=== PATIENT | female | born 1935 | race Hispanic/Latino ===

== ENCOUNTER 2019-04-18 07:22 | Day surgery (SDC) | payer OTHER ==
[~2019-04-18] VITALS: Ht 152.4 cm; Wt 63.5 kg
[~2019-04-18 07:22] MED LIST: ASPI-555 PO; CLOP75TA32 PO; LOSA1TAB42 PO; NAPR375T PO; PRAV40TA3 PO; RANI150C4 PO; SODIUM CHLORIDE 0.9% 1000ML 1,000 ML IV ONE; [UNRECOGNIZED DRUG - REMARK] PO
[2019-04-18 08:58] VITALS: BP 132/62
[2019-04-18] MEDS ORDERED: GABA-529 PO (09:15)
[2019-04-18] MEDS ORDERED: POTA10CA44 PO (09:15)
[2019-04-18] MEDS ORDERED: FURO20TA4 PO (09:15)
[2019-04-18] MEDS ORDERED: DULO30CA52 PO (09:15)
[2019-04-18] MEDS ORDERED: RANO500T3 PO (09:15)
[2019-04-18] MEDS ORDERED: PANT40TA25 PO (09:15)
[2019-04-18] MEDS ORDERED: DILT240C46 PO (09:15)
[2019-04-18] MEDS ORDERED: ALEN70TA10 PO (09:15)
[2019-04-18] MEDS ORDERED: ISOS60TA4 PO (09:15)
[2019-04-18] MEDS ORDERED: PROPOFOL 10 MG/ML 20ML VIAL IV ONE (10:30)
[2019-04-18 10:41] VITALS: BP 118/54
[2019-04-18 10:48] VITALS: BP 111/58
[2019-04-18 10:52] VITALS: BP 116/61
== END 2019-04-18 11:10 | disposition home or self-care (01) ==
LOC: DAH 07:22 → ENDO 07:22
PROVIDERS: ATTEND Internal Medicine
DX: K29.50 Unspecified chronic gastritis without bleeding (principal); K44.9 Diaphragmatic hernia without obstruction or gangrene; K31.89 Other diseases of stomach and duodenum; E78.5 Hyperlipidemia, unspecified; F41.9 Anxiety disorder, unspecified; F32.9 Major depressive disorder, single episode, unspecified; I25.10 Atherosclerotic heart disease of native coronary artery without angina pectoris; I50.41 Acute combined systolic (congestive) and diastolic (congestive) heart failure; M19.90 Unspecified osteoarthritis, unspecified site; Z79.899 Other long term (current) drug therapy; Z90.49 Acquired absence of other specified parts of digestive tract; Z90.710 Acquired absence of both cervix and uterus; Z98.890 Other specified postprocedural states; Z82.49 Family history of ischemic heart disease and other diseases of the circulatory system
CPT/HCPCS: 43239; 88305; A4606; J2704; J7030

== ENCOUNTER → 2022-01-30 | Outpatient (CLI) | payer OTHER ==
[~2022-01-30] MED LIST changes: +ALEN70TA80 PO; -ASPI-555 PO; +DILT240C46 PO; +DULO30CA52 PO; +FURO20TA4 PO; +GABA-529 PO; +ISOS60TA77 PO; -LOSA1TAB42 PO; -NAPR375T PO; +PANT40TA54 PO; +POTA10CA44 PO; -RANI150C4 PO; +RANO500T3 PO; -SODIUM CHLORIDE 0.9% 1000ML 1,000 ML IV ONE; -[UNRECOGNIZED DRUG - REMARK] PO
== END | disposition home or self-care (01) ==
LOC: RAH 13:09
PROVIDERS: ATTEND Physical Medicine & Rehabilitation
DX: M48.061 Spinal stenosis, lumbar region without neurogenic claudication (principal); M47.816 Spondylosis without myelopathy or radiculopathy, lumbar region; M51.36 Other intervertebral disc degeneration, lumbar region; M48.56XA Collapsed vertebra, not elsewhere classified, lumbar region, initial encounter for fracture; R29.890 Loss of height; M48.07 Spinal stenosis, lumbosacral region; M16.11 Unilateral primary osteoarthritis, right hip; M47.817 Spondylosis without myelopathy or radiculopathy, lumbosacral region
CPT/HCPCS: 72148; 73502

== ENCOUNTER → 2022-03-10 | Outpatient (CLI) | payer OTHER ==
[~2022-03-10] VITALS: Ht 152.4 cm; Wt 56.7 kg
[~2022-03-10] MED LIST changes: +ACYC400T20 PO; +APIX2.5T PO; +CEFAZOLIN SODIUM 1 GM VIAL IVP ONE; +DEXA4TAB PO; +FOLI1 PO; +LENA10CA PO; +PANT40GR PO; +PREG50CA63 PO; +RANO500T2 PO; +ROSU10TA28 PO; +SERT-440 PO
[2022-03-10 10:58] LABS: BASOPHILS % (AUTO) 0.3 % (0.0-5.0); EOSINOPHILS % (AUTO) 0.7 % (0.0-8.0); HEMATOCRIT 34.3 % (36-48); LYMPHOCYTES % (AUTO) 10.8 % (21.0-51.0); MEAN CORPUSCULAR HEMOGLOBIN 33.7 pg (27.0-33.0); MEAN CORPUSCULAR HGB CONC 32.9 g/dL (32.0-36.0); MEAN CORPUSCULAR VOLUME 102.4 fL (79-99); NEUTROPHILS % (AUTO) 57.2 % (40.0-77.0); PLATELET COUNT (AUTO) 68 K/uL (130-400); RED BLOOD CELL COUNT(AUTO) 3.35 MIL/uL (4.00-5.50); RED CELL DISTRIBUTION WIDTH 14.6 % (11.0-15.5)
[2022-03-10 11:06] LABS: CREATININE 0.6 mg/dL (0.5-1.5)
[2022-03-10 11:09] LABS: POTASSIUM 2.9 mmol/L (3.5-5.1)
[2022-03-10 11:42] LABS: PLATELET MORPHOLOGY COMMENT MARKED DECREASE
[2022-03-11 08:22] VITALS: BP 146/76
== END | disposition home or self-care (01) ==
LOC: DAH 10:00 → EDSTATUS 03-19 08:30
PROVIDERS: ATTEND Neurological Surgery
DX: Z01.818 Encounter for other preprocedural examination (principal); S32.010A Wedge compression fracture of first lumbar vertebra, initial encounter for closed fracture; M48.061 Spinal stenosis, lumbar region without neurogenic claudication; Z20.822 Contact with and (suspected) exposure to COVID-19; X58.XXXA Exposure to other specified factors, initial encounter; Y93.89 Activity, other specified; Y92.89 Other specified places as the place of occurrence of the external cause; Y99.8 Other external cause status
CPT/HCPCS: 80048; 85025; 36415; 87635; 71045; C9803; A6260; 84132; 85049

== ENCOUNTER → 2022-03-12 | Outpatient (CLI) | payer OTHER ==
[~2022-03-12] MED LIST changes: -ACYC400T20 PO; -APIX2.5T PO; -CEFAZOLIN SODIUM 1 GM VIAL IVP ONE; -DEXA4TAB PO; -FOLI1 PO; -LENA10CA PO; -PANT40GR PO; -PREG50CA63 PO; -RANO500T2 PO; -ROSU10TA28 PO; -SERT-440 PO
[2022-03-12 12:24] LABS: CREATININE 0.6 mg/dL (0.5-1.5); POTASSIUM 3.2 mmol/L (3.5-5.1)
== END | disposition home or self-care (01) ==
LOC: LAB 08:50
PROVIDERS: ATTEND Nurse Practitioner Acute Care
DX: E87.6 Hypokalemia (principal)
CPT/HCPCS: 36415; 80048

== ENCOUNTER 2024-07-30 09:36 | Observation (INO) | payer OTHER ==
[~2024-07-30] VITALS: Ht 152.4 cm; Wt 60.8 kg
[~2024-07-30 09:36] MED LIST changes: +ACYC400T20 PO; -ALEN70TA80 PO; +AMLO5TAB4 PO; +APIX2.5T PO; +BUPR1PAT22 TD; +CALC1TAB2 PO; -CLOP75TA32 PO; -DILT240C46 PO; -DULO30CA52 PO; +FAMO20TA8 PO; +FOLI1 PO; -FURO20TA4 PO; -GABA-529 PO; -ISOS60TA77 PO; +PANT40GR PO; -PANT40TA54 PO; -POTA10CA44 PO; -PRAV40TA3 PO; +RANO500T2 PO; -RANO500T3 PO; +ROSU10TA72 PO
--- NOTE | 2024-07-30 10:24 | ERN ---
General Chief Complaint: Back Injury Stated Complaint: BACK PAIN Time Seen by MD: 09:46 History of Present Illness Initial Comments 89-year-old female who presents for upper back pain beginning yesterday. Patient has a history of chronic lower back pain, she has a buprenorphine patch she wears for this chronic back pain. She has a history of multiple myeloma in remission. She recently went with her family to [place] and return yesterday. This is when her symptoms started. She describes upper back pain on the bilateral paraspinal muscles in the thoracic region in the upper back. There is no skin changes. She denies any radiating to the pain. It is musculoskeletal increases with movements and palpation. She denies any neurologic deficits distally. She has been taking [id number]-[id number] Tylenol Arthritis as well as her buprenorphine. She denies any systemic symptoms such as chest pains vomiting shortness of breath sore throat or other. Medical history: Cardiac stents, multiple myeloma in remission, high cholesterol. Patient sees Dr. Harrington for pain control. Allergies: Coded Allergies: No Known Drug Allergies (Verified Allergy, Unknown, 11/27/14) Home Meds Reported Medications Pantoprazole Sodium (Pantoprazole Sodium) 40 Mg Tablet.dr, 1 TAB PO DAILY for 30 Days, #30 TAB 0 Refills 07/30/24 Dexamethasone (Dexamethasone) 4 Mg Tablet, 10 TAB PO QWEEK for 30 Days, #40 TAB 0 Refills Take 2 tablets 3 times a day for 2 days, then 1 tablet 3 times a day for 2 days, then 1 tablet twice daily for 2 days, then 1 07/30/24 Pregabalin (Pregabalin) 50 Mg Capsule, 1 CAP PO BID MDD 2 Capsule(s) for 30 Days, #60 CAP 0 Refills 07/30/24 Furosemide (Furosemide) 20 Mg Tablet, 1 TAB PO DAILY for 30 Days, #30 TAB 0 Refills 07/30/24 Isosorbide Mononitrate (Isosorbide Mononitrate ER) 60 Mg Tab.er.24h, 1 TAB PO DAILY for 30 Days, #30 TAB 0 Refills 07/30/24 Amlodipine Besylate (Amlodipine Besylate) 2.5 Mg Tablet, 1 TAB PO DAILY for 30 Days, #30 TAB 0 Refills 07/30/24 Apixaban (Eliquis) 2.5 Mg Tablet, 2.5 MG PO BID, TAB 07/30/24 Potassium Chloride (Potassium Chloride) 20 Meq Tab.er.prt, 1 TAB PO DAILY for 30 Days, #30 TAB 0 Refills 07/30/24 Sertraline HCl (Sertraline HCl) 100 Mg Tablet, 1 TAB PO DAILY for 30 Days, #30 TAB 0 Refills 07/30/24 Lenalidomide (Revlimid) 10 Mg Capsule, 1 CAP PO AD 07/30/24 Rosuvastatin Calcium (Rosuvastatin Calcium) 10 Mg Tablet, 10 MG PO DAILYDINNER, TAB 07/15/23 Folic Acid (Folvite) 1 Mg Tab, 1 MG PO DAILY, TAB 03/17/22 Acyclovir (Acyclovir) 400 Mg Tablet, 400 MG PO BID, TAB 03/17/22 Ranolazine (RANEXA) 500 Mg Tab.er.12h, 500 MG PO BID, TAB 03/17/22 Discontinued Reported Medications Buprenorphine (Buprenorphine) 5 Mcg/Hour Patch.tdwk, 1 EACH TD QWEEK 07/15/23 Calcium Carbonate/Vitamin D3 (Caltrate 600 + D Tablet) 600 Mg Calcium-20 Mcg (800 Unit) Tablet, 1 EACH PO DAILY, TAB 07/15/23 Apixaban (Eliquis) 2.5 Mg Tablet, 2.5 MG PO BID, TAB 03/17/22 Pantoprazole Sodium (Pantoprazole Sodium) 40 Mg Granpkt.dr, 40 MG PO DAILY, PACK 03/17/22 Discontinued Scripts Famotidine (Famotidine) 20 Mg Tablet, 20 MG PO DAILY, #15 TAB 0 Refills Prov:DYLLAN NICHOLSON [facility] 07/21/23 Amlodipine Besylate (Norvasc 5Mg Tab) 5 Mg Tablet, 5 MG PO DAILY, #30 TAB Prov:ANMOLDYLLAN ABRAHAM [employer] 07/21/23 Past Medical History Past Medical History: Heart Disease Medical History Other: CHRONIC BACK PAIN Past Surgical History: Hysterectomy, Cholecystectomy, Other Surgical History Other: HEART STENTS Social History Social History: Negative ROS Dictation CONSTITUTIONAL: No chills, no fever, no weakness, no diaphoresis, no malaise. HEAD/FACE: No signs of trauma. EENT: No eye pain, no blurred vision, no tearing, no double vision, no ear pain, no ear discharge, no nose pain, no nasal congestion, no throat pain, no throat swelling, no mouth pain. RESPIRATORY: No cough, no orthopnea, no SOB, no stridor, no wheezing. CARDIOVASCULAR: No chest pain, no edema, no palpitations, no syncope. GASTROINTESTINAL/ABDOMINAL: No abdominal pain, no constipation, no diarrhea, no nausea, no vomiting. GENITOURINARY: No abnormal discharge, no dysuria, no frequent urination, no hematuria. No complaints of pain in the genitals. MUSCULOSKELETAL: Upper back pain INTEGUMENTARY: No change in color, no change in hair/nails, no dryness, no lesion, no lumps, no rash. NEUROLOGICAL/PSYCH: No anxiety, not depressed, no emotional problem, no headache, no numbness, no pre-existing deficit, no history of seizures, no tremors, no weakness. HEMATOLOGIC/LYMPHATIC: Not anemic, no history of blood clots, no apparent bleeding, no bruising, glands not swollen. All Systems Negative, Except as Noted. Physical Exam Physical Exam Dictation VITAL SIGNS: Reviewed. GENERAL APPEARANCE: Alert, moderate distress due to pain HEAD AND FACE: Non-traumatic. EYES: PERRL, pink conjunctivas, eyelid no trauma, anterior chamber clear. EARS: Pinnas intact and no signs of trauma or erythema. Ear canals clear and no discharge. TMs no erythema. NOSE: No discharge, no bleeding. OROPHARYNX: Mouth normal, teeth no caries, tongue pink. Pharynx clear, no erythema. Tonsils no exudates, no abscesses noted. Mucous membrane moist. NECK: Supple, non-tender, no thyromegaly, no masses, no JVD, no bruits. BREAST: Deferred. CHEST: No tenderness, no crepitus, no paradoxical movement, no retractions. LUNGS: Clear, well-ventilated, symmetric, no rales, no wheezing, no rhonchi, no stridor, good breath sounds bilaterally. HEART: Regular rate, regular rhythm, no murmur, no gallops. VASCULAR: No peripheral edema. ABDOMEN: Soft, positive bowel sounds, nondistended, no guarding, nontender, no rebound, no masses no hepatomegaly, no splenomegaly, no Cope's sign, no hernias. RECTAL: Deferred. GENITAL: Deferred. NEUROLOGICAL: Normal speech, gross motor function intact, gross sensory function intact. MUSCULOSKELETAL: Neck nontender, full range of motion, back nontender, full range of motion. EXTREMITIES: Nontender, full range of motion. SKIN: Color pink, dry, no turgor, no rash, no lacerations, no abrasions, no contusions. LYMPHATICS: Deferred. Results Laboratory and Microbiology Lab and Micro Result Laboratory Tests Test 07/30/24 10:23 White Blood Count 12.3 K/uL (4.8-10.8) H Red Blood Count 3.91 MIL/uL (4.00-5.50) L Hemoglobin 11.5 g/dL (12.0-16.0) L Hematocrit 35.8 % (36-48) L Mean Corpuscular Volume 91.6 fL (79-99) Mean Corpuscular Hemoglobin 29.4 pg (27.0-33.0) Mean Corpuscular Hemoglobin Concent 32.1 g/dL (32.0-36.0) Red Cell Distribution Width 17.6 % (11.0-15.5) H Platelet Count 58 K/uL (130-400) L Mean Platelet Volume 12.9 fL (7.5-10.5) H Immature Granulocyte % (Auto) 6.6 % (0-1) H Neutrophils (%) (Auto) 78.0 % (40.0-77.0) H Lymphocytes (%) (Auto) 6.2 % (21.0-51.0) L Monocytes (%) (Auto) 8.6 % (3.0-13.0) Eosinophils (%) (Auto) 0.2 % (0.0-8.0) Basophils (%) (Auto) 0.4 % (0.0-5.0) Neutrophils # (Auto) 9.6 K/uL (1.8-7.7) H Lymphocytes # (Auto) 0.8 K/uL (1.0-4.8) L Monocytes # (Auto) 1.1 K/uL (0.1-1.0) H Eosinophils # (Auto) 0.02 K/uL (0.00-0.70) Basophils # (Auto) 0.05 K/uL (0.00-0.20) Absolute Immature Granulocyte (auto 0.81 K/uL (0-1) Nucleated Red Blood Cells 0.2 % (0.0-0.19) H White Cell Morphology Comment See comments Platelet Morphology Comment DECREASED Sodium Level 138 mmol/L (136-145) Potassium Level 3.3 mmol/L (3.5-5.1) L Chloride Level 104 mmol/L (101-111) Carbon Dioxide Level 26 mmol/L (21-32) Blood Urea Nitrogen 10 mg/dL (7-18) Creatinine 0.8 mg/dL (0.5-1.0) Glomerular Filtration Rate Calc 70 mL/min (>90) Random Glucose 184 mg/dL (70-105) H Total Calcium 8.5 mg/dL (8.5-10.1) Magnesium Level 1.60 mg/dL (1.80-2.40) L Total Creatine Kinase 20 U/L (21-232) L Troponin I High Sensitivity 5.4 ng/L (4-50) MDM CC: Upper back pain Historian: Patient Comorbidities: Multiple myeloma, hypertension, advanced age Differential diagnosis: Musculoskeletal pain, degenerative joint disease disc disease, aortic aneurysm or dissection, or lung disorder, rib fracture, rib abnormality, other. Labs ( independently ordered and interpreted by me): Leukocytosis 12.3 1000 left shift no bands. Normocytic anemia hemoglobin 11.5. Platelets 58, thrombocytopenia. Chemistry panel is unremarkable. Magnesium 1.6. Troponin stable. External chart review: I reviewed the patient's labs from 2021 and 2022, specifically regarding the platelets. It appears the patient always has thrombocytopenia, it has been lower in the past. This is likely due to the multiple myeloma. She appears to be at her baseline. CT scan of the chest and abdomen without contrast ( independently interpreted by me): No obvious fractures. She has significant degenerative disc disease mostly in the lumbar spine. I do not see any rib fractures. No lung abnormalities. Significant atherosclerosis of the aorta but no signs of aneurysm. No surgical pathology or free air in the abdomen. Patient received IV Toradol and IV Dilaudid in the ER for pain control. Re-evaluation: Pain improved, but patient still uncomfortable. Discussed pain control and admission with family, they agree. Consultation: hospitalist for admission CT CHEST ABDOMEN W/O CONTRAST HISTORY: upper back pain TECHNIQUE: CT CHEST ABDOMEN W/O CONTRAST. Coronal and sagittal reformats were obtained. CT was performed with one or more of the following dose reduction techniques: Automated exposure control, adjustment of the mA and/or kV according to the patient's size, or use of the iterative reconstruction technique. FINDINGS: The noncontrast nature this study limits evaluation of the mediastinal structures. Atelectasis versus early infectious in the bilateral lower lobe. Correlate clinically. Follow-up CT chest when acute symptoms resolve is recommended to assess resolution. There is mild cardiomegaly. There is atherosclerotic changes of the aorta and coronary arteries. Right chest port is seen place. There is hepatic steatosis. Cholecystectomy changes are seen. There is fatty atrophy of the pancreas. No hydronephrosis is seen. No bowel obstruction is noted. Fluid-filled loops of small bowel and colon which may represent enterocolitis the proper clinical setting. Diffuse osteopenia is seen degrading evaluation of the study. There is moderate severe compression deformity of L2 and L3, age indeterminate. Mild compression deformity of L1 L4 and T12. IMPRESSION: Diffuse osteopenia is seen degrading evaluation of the study. There is moderate to severe compression deformity of L2 and L3, age indeterminate. Mild compression deformity of L1, L4 and T12. Additional findings as described above. ED Course Orders Procedure Category Date Status Time Cardiac Panel LAB 07/30/24 Complete 10:15 Cbc With Differential LAB 07/30/24 Complete 10:15 Basic Metabolic Panel LAB 07/30/24 Complete 10:15 Magnesium LAB 07/30/24 Complete 10:15 Ct Chest Abdomen W/O CT 07/30/24 Resulted Contrast 10:15 Hydromorphone 1 Mg PHA 07/30/24 Complete Inj (Dilaudid 1mg Inj 10:30 Ketorolac PHA 07/30/24 Complete Tromethamine 15mg/Ml 10:30 Current Medications Medications (Trade) Dose Ordered Sig/Katerina Route PRN Reason Start Time Stop Time Status Last Admin Dose Admin Hydromorphone HCl (DiLAUDid 1MG INJ) 1 mg ONCE ONCE IVP 07/30/24 10:30 07/30/24 10:31 DC 07/30/24 10:31 Ketorolac Tromethamine (toRADol) 15 mg ONCE ONCE IV 07/30/24 10:30 07/30/24 10:31 DC 07/30/24 10:30 Vital Signs Date Time Temp Pulse Resp B/P (MAP) Pulse Ox O2 Delivery O2 Flow Rate FiO2 07/30/24 12:00 98.1 76 20 127/73 97 Room Air* 0 21 07/30/24 10:38 77 20 118/73 97 Room Air* 0 21 07/30/24 09:39 98.4 56 18 106/71 96 Room Air DX & DISP Disposition: Inpatient Departure Impression: Primary Impression: Acute upper back pain Condition: Stable Referrals: ISAAK THOMAS MD (PCP) KUSHAL GARCIA DO Jul 30, 2024 10:24
[2024-07-30] MEDS: ketOROlac 15MG/ML VIAL (15MG/ML) IV ONE (10:30)
[2024-07-30 10:31] LABS: BASOPHILS # (AUTO) 0.05 K/uL (0.00-0.20); BASOPHILS % (AUTO) 0.4 % (0.0-5.0); EOSINOPHILS # (AUTO) 0.02 K/uL (0.00-0.70); EOSINOPHILS % (AUTO) 0.2 % (0.0-8.0); HEMATOCRIT 35.8 % (36-48); IMMATURE GRANULOCYTE ABSOLUTE 0.81 K/uL (0-1); LYMPHOCYTES # (AUTO) 0.8 K/uL (1.0-4.8); LYMPHOCYTES % (AUTO) 6.2 % (21.0-51.0); MEAN CORPUSCULAR HEMOGLOBIN 29.4 pg (27.0-33.0); MEAN CORPUSCULAR HGB CONC 32.1 g/dL (32.0-36.0); MEAN CORPUSCULAR VOLUME 91.6 fL (79-99); MONOCYTES # (AUTO) 1.1 K/uL (0.1-1.0); MONOCYTES % (AUTO) 8.6 % (3.0-13.0); NEUTROPHILS # (AUTO) 9.6 K/uL (1.8-7.7); NUCLEATED RED BLOOD CELLS 0.2 % (0.0-0.19); PLATELET COUNT (AUTO) 58 K/uL (130-400); RED BLOOD CELL COUNT(AUTO) 3.91 MIL/uL (4.00-5.50); RED CELL DISTRIBUTION WIDTH 17.6 % (11.0-15.5); WHITE BLOOD COUNT (AUTO) 12.3 K/uL (4.8-10.8)
[2024-07-30] MEDS: hydroMORPHone 1 MG INJ IVP ONE (10:31)
[2024-07-30 10:44] LABS: CREATININE 0.8 mg/dL (0.5-1.0); POTASSIUM 3.3 mmol/L (3.5-5.1)
[2024-07-30 10:51] LABS: MAGNESIUM 1.6 mg/dL (1.80-2.40)
[2024-07-30 11:32] LABS: PLATELET MORPHOLOGY COMMENT DECREASED
--- NOTE | 2024-07-30 11:42 | HMCIMG ---
CT CHEST ABDOMEN W/O CONTRAST HISTORY: upper back pain TECHNIQUE: CT CHEST ABDOMEN W/O CONTRAST. Coronal and sagittal reformats were obtained. CT was performed with one or more of the following dose reduction techniques: Automated exposure control, adjustment of the mA and/or kV according to the patient's size, or use of the iterative reconstruction technique. FINDINGS: The noncontrast nature this study limits evaluation of the mediastinal structures. Atelectasis versus early infectious in the bilateral lower lobe. Correlate clinically. Follow-up CT chest when acute symptoms resolve is recommended to assess resolution. There is mild cardiomegaly. There is atherosclerotic changes of the aorta and coronary arteries. Right chest port is seen place. There is hepatic steatosis. Cholecystectomy changes are seen. There is fatty atrophy of the pancreas. No hydronephrosis is seen. No bowel obstruction is noted. Fluid-filled loops of small bowel and colon which may represent enterocolitis the proper clinical setting. Diffuse osteopenia is seen degrading evaluation of the study. There is moderate severe compression deformity of L2 and L3, age indeterminate. Mild compression deformity of L1 L4 and T12. IMPRESSION: Diffuse osteopenia is seen degrading evaluation of the study. There is moderate to severe compression deformity of L2 and L3, age indeterminate. Mild compression deformity of L1, L4 and T12. Additional findings as described above.
[2024-07-30] MEDS ORDERED: traMADol HCL 50 MG TABLET PO PRN (12:30)
[2024-07-30] MEDS ORDERED: acetaMINOPHEN 650 MG SUPPOSITORY RC PRN (12:30)
--- NOTE | 2024-07-30 12:46 | HP ---
[facility] HISTORY & PHYSICAL Date Patient Seen: Jul 30, 2024 Time of Visit: 12:46 Supervising Physician: [ ] Primary Care Physician: Dr. Davis Outpatient Specialists: [ ] Inpatient Consults: [ ] PROBLEM LIST: New onset thoracic back pain Chronic lumbar pain Osteopenia Thrombocytopenia Immunocompromised status Multiple myeloma Hyperlipidemia Chronic anemia HPI: Patient is an 89-year-old female with a past medical history significant for multiple myeloma, immunocompromised status, thrombocytopenia, and chronic lumbar back pain, who presents today with new onset thoracic back pain. Patient's daughter was present at the time of evaluation in the emergency room, states that they just returned yesterday from a trip to [place] with the patient was on a flight for 8 hours, states that the patient is usually in better in the wheelchair and does not do much ambulation however she exerted herself significantly during the trip. Patient had a CT scan performed of the chest and abdomen which was positive for severe compression deformities of the L2 and L3 likely that the source of her chronic lower back pain as well as mild compression deformities of the L1, L4, and T12 vertebrae. Upon evaluation the patient was able to describe the location of her pain which is indicative more of supraspinal muscle pain. Patient was given 50 mg of tramadol in the emergency room which alleviated her pain completely. We will keep the patient overnight for observation, with a trial of muscle relaxers at a low dose, consultation to physical therapy to work with her tomorrow, no indication for any more scans at this time. Possible discharge tomorrow following evaluation. PAST MEDICAL HX: see above PAST SURGICAL HX: noncontributory SOCIAL HISTORY: No tobacco, ETOH, or illicit drug use Coded Allergies: No Known Drug Allergies (Verified Allergy, Unknown, 11/27/14) REVIEW OF SYSTEMS: 12 point ROS reviewed with patient. Pertinent positives mentioned above. Oth erwise negative. PHYSICAL EXAM: GENERAL: alert, weak, awake oriented x 3 HEENT: EOMI, Sclera non icteric, moist mucosa NECK: Supple, no JVD, trachea midline LUNGS: Clear breath sounds bilaterally. No wheezes HEART: Regular rate and rhythm. Normal S1 and S2, without murmurs ABD: Abdomen soft, nontender. Bowel sounds present EXT: No clubbing cyanosis or edema NEURO: Alert and oriented to person, follows commands Vital Signs (last 8hr) Date Time Temp Pulse Resp B/P (MAP) Pulse Ox O2 Delivery O2 Flow Rate FiO2 07/30/24 10:38 77 20 118/73 97 Room Air* 0 21 07/30/24 09:39 98.4 56 18 106/71 96 Room Air LABS: Hematology Labs: Test 07/30/24 10:23 Range/Units White Blood Count 12.3 H 4.8-10.8 K/uL Red Blood Count 3.91 L 4.00-5.50 MIL/uL Hemoglobin 11.5 L 12.0-16.0 g/dL Hematocrit 35.8 L 36-48 % Mean Corpuscular Volume 91.6 79-99 fL Mean Corpuscular Hemoglobin 29.4 27.0-33.0 pg Mean Corpuscular Hemoglobin Concent 32.1 32.0-36.0 g/dL Red Cell Distribution Width 17.6 H 11.0-15.5 % Platelet Count 58 L 130-400 K/uL Mean Platelet Volume 12.9 H 7.5-10.5 fL Immature Granulocyte % (Auto) 6.6 H 0-1 % Neutrophils (%) (Auto) 78.0 H 40.0-77.0 % Lymphocytes (%) (Auto) 6.2 L 21.0-51.0 % Monocytes (%) (Auto) 8.6 3.0-13.0 % Eosinophils (%) (Auto) 0.2 0.0-8.0 % Basophils (%) (Auto) 0.4 0.0-5.0 % Neutrophils # (Auto) 9.6 H 1.8-7.7 K/uL Lymphocytes # (Auto) 0.8 L 1.0-4.8 K/uL Monocytes # (Auto) 1.1 H 0.1-1.0 K/uL Eosinophils # (Auto) 0.02 0.00-0.70 K/uL Basophils # (Auto) 0.05 0.00-0.20 K/uL Absolute Immature Granulocyte (auto 0.81 0-1 K/uL Nucleated Red Blood Cells 0.2 H 0.0-0.19 % White Cell Morphology Comment See comments Platelet Morphology Comment DECREASED Chemistry Labs: Test 07/30/24 10:23 Range/Units Sodium Level 138 136-145 mmol/L Potassium Level 3.3 L 3.5-5.1 mmol/L Chloride Level 104 101-111 mmol/L Carbon Dioxide Level 26 21-32 mmol/L Blood Urea Nitrogen 10 7-18 mg/dL Creatinine 0.8 0.5-1.0 mg/dL Glomerular Filtration Rate Calc 70 >90 mL/min Random Glucose 184 H 70-105 mg/dL Total Calcium 8.5 8.5-10.1 mg/dL Magnesium Level 1.60 L 1.80-2.40 mg/dL Total Creatine Kinase 20 L 21-232 U/L Troponin I High Sensitivity 5.4 4-50 ng/L DIAGNOSTICS / RADIOLOGY RESULTS: [ ] PLAN NEURO: Minimize central acting medications as possible. Maintain fall precautions, adequate lighting during the day PULMONARY: Supplemental 02 as needed. Maintain aspiration precautions at all times CARDIOVASCULAR: Follow hemodynamics. Vital signs per facility protocol GI & NUTRITION: Continue with nutritional support. Continue stool softeners and laxatives as needed. KIDNEYS & ELECTROLYTES: Strict monitoring of intake, output and overall fluid balance. Avoid nephrotoxic medications to the extent possible. Medications to be dosed according to renal function. Monitor electrolytes and replace as needed ENDOCRINE: Maintain blood glucose between 100-180 at all times. Hypoglycemia protocol in place INFECTIOUS DISEASE: Trend temperature, WBC and procalcitonin level Follow cultures, deescalate antibiotics as soon as possible. Panculture if new onset fever ONCOLOGY/HEMATOLOGY/COAGULATION: Monitor for s/s of bleeding Monitor hemoglobin, coagulation studies as needed SKIN: Pressure ulcer prevention per facility protocol Specialty mattress ORTHO/REHAB: Continue PT/OT Prophylaxis: Continue GI and DVT prophylaxis Code Status: Full Resuscitation Disposition: TBD Other: Total patient care time exceeds 35 minutes excluding all procedures. SCOTT HALL Jul 30, 2024 12:46
[2024-07-30] MEDS: cefTRIAXone 1G VIAL IVP SCH (12:52)
[2024-07-30 15:40] LABS: APPEARANCE,URINE CLOUDY (CLEAR); BILIRUBIN,URINE NEGATIVE (NEGATIVE); COLOR,URINE YELLOW (YELLOW); GLUCOSE, URINE (UA) 300 mg/dL (NEGATIVE); KETONES,URINE 5 mg/dL (NEGATIVE); LEUKOCYTE ESTERASE ,URINE 500 Leu/uL (NEGATIVE); NITRATE,URINE NEGATIVE (NEGATIVE); OCCULT BLOOD,URINE LARGE (NEGATIVE); PH,URINE 5.5 (5.0-8.0); PROTEIN,URINE 50 mg/dL (NEGATIVE); UROBILINOGEN,URINE 0.2 mg/dL (0.2-1.0)
[2024-07-30 15:49] LABS: ADD UA MICROSCOPIC YES
[2024-07-30 15:54] LABS: BACTERIA,URINE RARE /HPF (None Seen); MUCUS,URINE FEW LPF (None Seen); SQUAMOUS EPITHELIAL CELL,UR FEW /HPF (0-2); WBC CLUMP FEW /HPF (0-1); WBC,URINE TNTC /HPF (0-1)
[2024-07-30] MEDS: hydroMORPHone 1 MG INJ IVP PRN (16:22)
[2024-07-30] MEDS: INSULIN humuLIN R 100 UNIT/ML 3ML SQ SCH (16:30)
[2024-07-30] MEDS ORDERED: PoTASSium chloRIDE 20MEQ/100ML 100 ML IV PRN (19:30)
[2024-07-30] MEDS ORDERED: PoTASSium chl 10% ELIXIR 20MEQ 20 MEQ/15 ML UDCUP PO PRN (19:30)
[2024-07-30] MEDS: BACLOFEN 10 MG TABLET PO SCH (19:55)
[2024-07-30] MEDS: BACLOFEN 10 MG TABLET ONE (20:02)
--- NOTE | 2024-07-30 20:04 | NUR ---
RBS 200 mg/dL Patient given 2 units of humulin R subcutaneous to right arm as per insulin sliding scale.
[2024-07-30 22:30] VITALS: BP 156/73; PULSE 70; RESP 17; TEMP 98.6
[2024-07-30] MEDS: MAGNESIUM 2GM PREMIX 50ML 50 ML IV PRN (22:43)
[2024-07-30] MEDS: PoTASSium chloRIDE 20MEQ ER 20 MEQ ERTAB PO PRN (22:44)
[2024-07-30 22:49] VITALS: O2SAT 95
[2024-07-30] MEDS ORDERED: PREG50CA64 PO (23:13)
[2024-07-30] MEDS ORDERED: DEXA4TAB PO (23:13)
[2024-07-30] MEDS ORDERED: POTA-202 PO (23:13)
[2024-07-30] MEDS ORDERED: AMLO2.5T4 PO (23:13)
[2024-07-30] MEDS ORDERED: ISOS60TA77 PO (23:13)
[2024-07-30] MEDS ORDERED: FURO20TA4 PO (23:13)
[2024-07-30] MEDS ORDERED: APIX2.5T PO (23:13)
[2024-07-30] MEDS ORDERED: SERT-440 PO (23:13)
[2024-07-30] MEDS ORDERED: LENA10CA PO (23:13)
[2024-07-30] MEDS ORDERED: PANT40TA54 PO (23:14)
[2024-07-31] VITALS (11 sets, daily range): BP systolic 116–194; BP diastolic 54–108; PULSE 59–105; RESP 16–22; TEMP 97.5–98.2; O2SAT 94–97
[2024-07-31 05:52] LABS: BASOPHILS # (AUTO) 0.03 K/uL (0.00-0.20); BASOPHILS % (AUTO) 0.4 % (0.0-5.0); HEMATOCRIT 30.1 % (36-48); IMMATURE GRANULOCYTE ABSOLUTE 0.63 K/uL (0-1); LYMPHOCYTES # (AUTO) 0.7 K/uL (1.0-4.8); LYMPHOCYTES % (AUTO) 9.4 % (21.0-51.0); MEAN CORPUSCULAR HEMOGLOBIN 29.6 pg (27.0-33.0); MEAN CORPUSCULAR HGB CONC 32.9 g/dL (32.0-36.0); MEAN CORPUSCULAR VOLUME 89.9 fL (79-99); MONOCYTES # (AUTO) 1.1 K/uL (0.1-1.0); MONOCYTES % (AUTO) 15.6 % (3.0-13.0); NEUTROPHILS # (AUTO) 4.7 K/uL (1.8-7.7); NEUTROPHILS % (AUTO) 65.8 % (40.0-77.0); PLATELET COUNT (AUTO) 45 K/uL (130-400); RED BLOOD CELL COUNT(AUTO) 3.35 MIL/uL (4.00-5.50); RED CELL DISTRIBUTION WIDTH 16.9 % (11.0-15.5); WHITE BLOOD COUNT (AUTO) 7.1 K/uL (4.8-10.8)
[2024-07-31 06:21] LABS: CREATININE 0.5 mg/dL (0.5-1.0); MAGNESIUM 2.2 mg/dL (1.80-2.40); PHOSPHORUS 2.8 mg/dL (2.5-4.9); POTASSIUM 4.2 mmol/L (3.5-5.1); THYROID STIMULATING HORMONE 0.54 uIU/mL (0.36-3.74)
[2024-07-31 06:28] LABS: B-TYPE NATRIURETIC PEPTIDE 118 pg/mL (0-100)
[2024-07-31] MEDS: SODIUM CHLORIDE 3% FOR INHALATION 4 ML/AMP VIAL.NEB IH ONE ×4 (06:56→14:21)
[2024-07-31] MEDS: acetaMINOPHEN 325 MG TAB PO PRN (08:51)
[2024-07-31] MEDS: AZITHROMYCIN 500MG+NS 250ML IV SCH (08:51)
[2024-07-31] MEDS: ENOXAPARIN SODIUM 40 MG/0.4 ML SYRINGE SQ SCH (09:00)
--- NOTE | 2024-07-31 09:38 | HMCIMG ---
CHEST 1VW REASON: pneumonia COMPARISON: 07/30/2024 FINDINGS: Single view of the chest was obtained. Lungs are clear. Heart size is normal. There is no pulmonary vascular congestion. Mediastinum and bony thorax appear unremarkable. There is a right-sided chest port in place. IMPRESSION: 1. No acute process seen in the chest.
--- NOTE | 2024-07-31 11:08 | EKG ---
[facility] Test Date: 2024-07-31 Test Time: 11:05:38 Pat Name: MARYANA OTTO Department: [facility] Room: 317 1 Gender: F Proctologist: brenda : 1935 Requested By: SCOTT HALL Order Number: [id number] Reading MD: Cabrera Maloney Measurements Intervals [place] Rate: 79 P: 24 MT: 172 QRS: 1 QRSD: 80 T: 16 QT: 410 QTc: 470 Interpretive Statements Normal sinus rhythm Compared to ECG 07/15/2023 04:52:56 Ventricular premature complex(es) no longer present Intraventricular conduction delay no longer present Myocardial infarct finding no longer present T-wave abnormality no longer present Possible ischemia no longer present Electronically Signed On 08-01-2024 15:14:49 REGIONAL ADMINISTRATIVE ASSISTANT by Cabrera Maloney Please click the below link to view image of tracing.
[2024-07-31] MEDS: NITROGLYCERIN 0.4 MG SL TAB SL PRN (11:20)
--- NOTE | 2024-07-31 11:30 | NUR ---
Spoke to Criss, patient nurse, who told PT hold off on PT eval secondary to patient in severe pain. PT team to follow.
--- NOTE | 2024-07-31 11:35 | NUR ---
DCP: HOME Sw met with pt's son Uriah Soliman [phone]. Pt was in [place] last week and return c/o severe back pain. Son reports that pt lives at home with her (Maria M) who assists pt has needed with ADLS. Daughter Kirsten Baeza [phone] assists pt with bathing dressing grooming and as needed with transportation and home management. Pt has a w/c and shower chair and no HH or HD services. PcP is Bernard Davis and uses [facility] for rx. Son states pt will return home and dc and denied dc needs for pt Addendum: 07/31/24 at 1140 by SHALA CHINCHILLA Amended: Links added.
[2024-07-31] MEDS: CEFTRIAXONE 2GM VIAL IVP SCH (12:47)
--- NOTE | 2024-07-31 12:50 | PN ---
[facility] PROGRESS NOTE Date Patient Seen: Jul 31, 2024 Time of Visit: 12:50 Supervising Physician: Dr. Marin Primary Care Physician: Dr. Davis Outpatient Specialists: [ ] Inpatient Consults: Dr. Winchester (oncology) PROBLEM LIST: New onset thoracic back pain Chronic lumbar pain Acute complicated cystitis Osteopenia Thrombocytopenia Immunocompromised status Multiple myeloma Hyperlipidemia Chronic anemia Plan Pending oncology consultation Continue with pain management on schedule Continue Rocephin Continue baclofen Pending thoracic CT INTERVAL HISTORY: Patient was evaluated at bedside during an episode of severe chest pain, 06/15 as patient described. An EKG was performed and patient was slightly elevated heart rate however sinus rhythm. Nitroglycerin was given as well as 0.5 Dilaud id. Once pain resolved patient was revisited, when asked if the pain she was experiencing seemed like it was coming from the center of her chest or her back she stated it was the back. This is consistent with her original complaint of thoracic back pain. Nursing staff was advised to continue with scheduled pain management, her oncologist has been consulted at this time for possible metastases or plasmacytoma. We are also ordering a CT thoracic spine at this time. Patient continues on Rocephin at this time. Plan was to start the patient on adjusted dose Neurontin however her home prescription for Lyrica has been restarted. Holding anticoagulants due to thrombocytopenia. Pending recommendations from Oncology. REVIEW OF SYSTEMS: 12 point ROS reviewed with patient. Pertinent positives mentioned above. Otherwise negative. PHYSICAL EXAM: GENERAL: alert, weak, awake oriented x 3 HEENT: EOMI, Sclera non icteric, moist mucosa NECK: Supple, no JVD, trachea midline LUNGS: Clear breath sounds bilaterally. No wheezes HEART: Regular rate and rhythm. Normal S1 and S2, without murmurs ABD: Abdomen soft, nontender. Bowel sounds present EXT: No clubbing cyanosis or edema NEURO: Alert and oriented to person, follows commands Vital Signs (last 8hr) Date Time Temp Pulse Resp B/P (MAP) Pulse Ox O2 Delivery O2 Flow Rate FiO2 07/31/24 11:33 84 129/80 07/31/24 11:00 98.1 105 22 194/108 94 Room Air 07/31/24 08:00 98.1 88 18 144/74 94 Room Air LABS: Hematology Labs: Test 07/31/24 05:12 07/30/24 10:23 Range/Units White Blood Count 7.1 # 4.8-10.8 K/uL Red Blood Count 3.35 L 4.00-5.50 MIL/uL Hemoglobin 9.9 L 12.0-16.0 g/dL Hematocrit 30.1 L 36-48 % Mean Corpuscular Volume 89.9 79-99 fL Mean Corpuscular Hemoglobin 29.6 27.0-33.0 pg Mean Corpuscular Hemoglobin Concent 32.9 32.0-36.0 g/dL Red Cell Distribution Width 16.9 H 11.0-15.5 % Platelet Count 45 L 130-400 K/uL Mean Platelet Volume 13.2 H 7.5-10.5 fL Immature Granulocyte % (Auto) 8.8 H 0-1 % Neutrophils (%) (Auto) 65.8 40.0-77.0 % Lymphocytes (%) (Auto) 9.4 L 21.0-51.0 % Monocytes (%) (Auto) 15.6 H 3.0-13.0 % Eosinophils (%) (Auto) 0.0 0.0-8.0 % Basophils (%) (Auto) 0.4 0.0-5.0 % Neutrophils # (Auto) 4.7 1.8-7.7 K/uL Lymphocytes # (Auto) 0.7 L 1.0-4.8 K/uL Monocytes # (Auto) 1.1 H 0.1-1.0 K/uL Eosinophils # (Auto) 0.00 0.00-0.70 K/uL Basophils # (Auto) 0.03 0.00-0.20 K/uL Absolute Immature Granulocyte (auto 0.63 0-1 K/uL Nucleated Red Blood Cells 0.0 0.0-0.19 % White Cell Morphology Comment See comments Platelet Morphology Comment DECREASED Chemistry Labs: Test 07/31/24 11:11 07/31/24 05:12 07/30/24 10:23 Range/Units Whole Blood Glucose 144 H 70-110 MG/DL Sodium Level 145 136-145 mmol/L Potassium Level 4.2 3.5-5.1 mmol/L Chloride Level 111 101-111 mmol/L Carbon Dioxide Level 24 21-32 mmol/L Blood Urea Nitrogen 13 7-18 mg/dL Creatinine 0.5 0.5-1.0 mg/dL Glomerular Filtration Rate Calc 90 >90 mL/min Random Glucose 152 H 70-105 mg/dL Total Calcium 8.0 L 8.5-10.1 mg/dL Phosphorus Level 2.8 2.5-4.9 mg/dL Magnesium Level 2.20 1.80-2.40 mg/dL B-Type Natriuretic Peptide 118 H 0-100 pg/mL Thyroid Stimulating Hormone (TSH) 0.54 0.36-3.74 uIU/mL Total Creatine Kinase 20 L 21-232 U/L Troponin I High Sensitivity 5.4 4-50 ng/L DIAGNOSTICS / RADIOLOGY RESULTS: [ ] PLAN NEURO: Minimize central acting medications as possible. Maintain fall precautions, adequate lighting during the day PULMONARY: Supplemental 02 as needed. Maintain aspiration precautions at all times CARDIOVASCULAR: Follow hemodynamics. Vital signs per facility protocol GI & NUTRITION: Continue with nutritional support. Continue stool softeners and laxatives as needed. KIDNEYS & ELECTROLYTES: Strict monitoring of intake, output and overall fluid balance. Avoid nephrotoxic medications to the extent possible. Medications to be dosed according to renal function. Monitor electrolytes and replace as needed ENDOCRINE: Maintain blood glucose between 100-180 at all times. Hypoglycemia protocol in place INFECTIOUS DISEASE: Trend temperature, WBC and procalcitonin level Follow cultures, deescalate antibiotics as soon as possible. Panculture if new onset fever ONCOLOGY/HEMATOLOGY/COAGULATION: Monitor for s/s of bleeding Monitor hemoglobin, coagulation studies as needed SKIN: Pressure ulcer prevention per facility protocol Specialty mattress ORTHO/REHAB: Continue PT/OT Prophylaxis: Continue GI and DVT prophylaxis Code Status: Full Resuscitation Disposition: TBD Other: Total patient care time exceeds 35 minutes excluding all procedures. SCOTT HALL Jul 31, 2024 12:50
[2024-07-31] MEDS ORDERED: GABApentin 100 MG CAPSULE PO SCH (14:30)
[2024-07-31] MEDS: pregABALin 25 MG CAP PO SCH (14:44)
[2024-07-31] MEDS: ALPRAZolam 0.25 MG TABLET PO PRN (14:44)
--- NOTE | 2024-07-31 15:34 | HMCIMG ---
CT THORACIC SPINE W/O CONTRAST REASON: multiple myeloma, suspected lesions COMPARISON: 07/16/2023. TECHNIQUE: Routine thoracic imaging protocol was performed. FINDINGS: There is a lesion in the T4 vertebral body with vertical striations typical of a hemangioma. There is mild superior endplate compression deformity of the T6 vertebral body without posterior fragment. There is mild compression deformity of the T11 vertebral body as well as superior endplate of T12. There are severe compression deformities of L1 and L2. These were also visible on prior CT abdomen and pelvis 07/16/2023. There are no other focal lesions. There are no areas of focal bone lysis to suggest multiple myeloma. Spinal canal appears preserved. Surrounding soft tissues appear unremarkable. IMPRESSION: 1. Multiple thoracic and lumbar compression fractures which appear stable compared to prior exam 07/16/2023. 2. 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
--- NOTE | 2024-07-31 16:00 | NUR ---
Spoke to Shoshana this pm and she stated she had medicated patient with Dilaudid. Patient was difficult to arose and would not stay awake. PT team to follow.
[2024-07-31] MEDS: hydroMORPHone 0.5 MG SYG (0.5MG/0.5ML) IVP PRN (16:25)
--- NOTE | 2024-07-31 17:32 | CONS ---
CONSULT NOTE: Ms. Soliman is an 88 year old female with a past medical history significant for hypertension, coronary artery disease, and chronic renal insufficiency. Patient was found to have monoclonal protein of 1.4 gm/dl. Bone marrow biopsy showed patient to have 50% plasma cells consistent with multiple myeloma. Skeletal bone survey done 08/24/2019 showed disc space narrowing at C5-C6 and L4-L5 and L5-S1 levels with endplate changes. Mild compression fracture involving C7 with 20% loss of height. Superior endplate compression fracture involving L2 with 25% loss of height. Patient was complaining of low back pain radiating to bilateral lower extremities, right worse than left. Patient was started on chemotherapy with daratumumab, lenalidomide, and dexamethasone. Patient was admitted to the hospital for evaluation of right lower leg extremity edema. Patient was found to have a DVT and patient is taking Eliquis 2.5 mg p.o. twice daily. Patient had bone marrow biopsy after 6 cycles with the patient have only 2% of plasma cell. Patient is almost in complete remission.Patient is in clinic today for follow-up and reports lower back pain. The patient actually have complete remission with the daratumumab was a stopped. Patient is receiving lenalidomide 10 mg every day for 21 days and 1 week off. Patient continues to be on dexamethasone 20 mg weekly. Her last SPEP showed 0.1 g/deciliter monoclonal protein which was a stable. She denies fever, chills, night sweats, dizziness, headaches, shortness of breath, cough, chest pain, nausea, vomiting, diarrhea, constipation, abdominal pain or distention, hematuria, or blood in her stool. PET CT scan was done December 18, 2021 which was negative for any increased uptake to the bone to suggest any metastatic disease. There was some consolidation to the lung consistent with infection or inflammatory process. Patient was admitted to the hospital because of severe back pain. Ms. Soliman is an 88 year old female with a past medical history significant for hypertension, coronary artery disease, and chronic renal insufficiency. Patient was found to have monoclonal protein of 1.4 gm/dl. Bone marrow biopsy showed patient to have 50% plasma cells consistent with multiple myeloma. Skeletal bone survey done 08/24/2019 showed disc space narrowing at C5- C6 and L4-L5 and L5-S1 levels with endplate changes. Mild compression fracture involving C7 with 20% loss of height. Superior endplate compression fracture involving L2 with 25% loss of height. Patient was complaining of low back pain radiating to bilateral lower extremities, right worse than left. Patient was started on chemotherapy with daratumumab, lenalidomide, and dexamethasone. Patient was admitted to the hospital for evaluation of right lower leg extremity edema. Patient was found to have a DVT and patient is taking Eliquis 2.5 mg p. o. twice daily. Patient had bone marrow biopsy after 6 cycles with the patient have only 2% of plasma cell. Patient is almost in complete remission. Patient is in clinic today for follow-up and reports lower back pain. Patient actually have complete remission with the daratumumab was a stopped. Patient is receiving lenalidomide 10 mg every day for 21 days and 1 week off. Patient continues to be on dexamethasone [address] was done December 18, 2021 which was negative for any increased uptake to the bone to suggest any metastatic disease. There was some consolidation to the lung consistent with infection or inflammatory process. Patient was admitted to the hospital and Revlimid was held during this admission. Patient also continued to be receiving Eliquis 5 mg p. o. twice daily. There is no obvious bleeding. Patient in wheelchair. Patient denies any hemoptysis, hematemesis, rectal bleeding, or hematuria. Patient denies any dizziness, chills, fever, or night sweats. Patient denies any diplopia, hearing problems, oropharyngeal soreness, or jaundice, chest pain, palpitations, and shortness of breath or cough, dysphagia, nausea, vomiting, constipation, diarrhea, abdominal pain, or distention, dysuria, incontinence, or frequency. 12/28/2023: Patient continued maintenance therapy with Revlimid 10 mg for 21 days and 1 week off, and continued Eliquis 5 mg p. o. twice daily. No new modifications to the treatment regimen were made. Interval History: Patient reports experiencing both good and tired days. She denies edema, odynophagia, stomatitis, hematochezia, hematuria, or vaginal bleeding. Recent abnormal protein test results were very low, undetectable by the machine, indicating a positive response to treatment. Hemoglobin level is 12. Patient mentions some broken teeth and expresses desire for dental work, but is currently taking alendronate. She also requests medication for pain or arthritis. Past Medical History: coronary artery disease, deep vein thrombosis, hypertension, chronic obstructive pulmonary disease, esophagitis, gastritis, hemorrhoids, anemia, arthritis, hyperlipidemia, obesity, headache, depression. - Osteoporosis Past Surgical History*: Previous surgery: appendectomy, 1969, hysterectomy, 1979, orthopedic surgery, 1962 extra rib removed. Prior blood transfusions: yes, no reaction. 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 history: currently : no, desire for children: no, : 3, para: 3, SAB: 0, TAB: 0, no. of term births: 2, no. of births: 1, no. of living children: 3, H/O : yes. Details: age at first menses, 14 years, last menstrual period, 1979, length of menstrual periods, 3 days, menstrual cycle length, 28 days, age at first live , 22 years, age of menopause, 45 years, date: 1979, menopausal status, postmenopausal, reason for becoming postmenopausal, hysterectomy, bilateral oophorectomy, menopausal symptoms, no symptoms. Medications: Dexamethasone Oral 4 mg tablet patient to take 10 tablets po once a week Potassium Chloride Oral ER Tab 20 mEq tablet extended release 1 mEq orally daily. Take one tablet daily REVLIMID (Lenalidomide Oral) 10 mg capsule 1 capsule(s) orally. Auth# [id number] Adult Female - NOT of Childbearing Potential Apixaban Oral 2.5 mg tablet 1 TABLET(S) PO BID Isosorbide Mononitrate Oral 24 hr Tab 60 mg tablet extended release 24 hr 0.5 TABLET(S), SUSTAINED RELEASE 24HR PO daily Ranolazine Oral 12 hr Tab 500 mg tablet extended release 12 hr 500 MG PO daily Potassium Chloride Oral ER Tab 20 mEq orally 2 times per day Sertraline Oral 50 mg tablet 1 TABLET(S) PO daily Dexamethasone 4 mg tablet 4 mg orally daily. 10 tabs po q weekly REVLIMID (Lenalidomide) 10 mg capsule 1 capsule orally daily. take one tablet daily for 21 days 7 days off. Take whole with water, with or without food . Adult Female of Non Child Bearing Potential Auth# [id number] Alendronate Oral (Weekly) 70 mg tablet 1 TABLET(S) PO Weekly Baclofen Oral 10 mg orally 2 times per day Gabapentin Oral 100 mg capsule 1 CAPSULE(S) PO daily Acyclovir Oral 400 mg tablet 1 tablet(s) orally 2 times per day. Acyclovir 400 mg tablet TAKE ONE TABLET BY MOUTH TWICE DAILY Buprenorphine Transdermal Patch 5 mcg/hour 5 mcg/hour patch weekly Furosemide Oral 20 mg tablet 1 TABLET(S) PO as directed Rosuvastatin Calcium Oral 10 mg tablet 1 TABLET(S) PO daily Dexamethasone 4 mg tablet Take 10 tablets by mouth weekly Potassium Chloride Oral ER Tab 20 mEq tablet extended release 20 mEq orally daily. Take one tablet daily Pantoprazole (Sodium) Oral Delayed Release 40 mg tablet,delayed release (DR/EC) 1 TABLET(S) PO daily Medications reviewed and reconciled with patient. Medications*: Acyclovir, po solid: 400 mg Tablet, TAKE ONE TABLET BY MOUTH TWICE DAILY, Instructions: TAKE ONE TABLET BY MOUTH TWICE DAILY. Alendronate sodium, po solid: Outside Rx: 70 mg Tablet Take 1 PO Weekly Date started: 2014. Dexamethasone, po solid: 4 mg Tablet, patient to take 10 tablets po once a week, Instructions: patient to take 10 tablets po once a week. Eliquis, po solid (apixaban): Outside Rx: 2.5 mg Tablet Take 1 PO BID Date started: 12/31/2019. Furosemide, po solid: Outside Rx: 20 mg Tablet Take 1 PO as directed Date started: 2014. Gabapentin, po solid: Outside Rx: 100 mg Capsule Take 1 PO daily Date started: 2015. Isosorbide mononitrate er, po solid sr (isosorbide mononitrate): Outside Rx: 60 mg Tablet, extended release 24 hr Take 0.5 Tablet(s), sustained release 24hr PO daily Date started: 2014. Pantoprazole sodium, po solid: Outside Rx: 40 mg Tablet, delayed release (enteric coated) Take 1 Tablet(s) PO daily Date started: 2014. Potassium chloride, po solid SR: Outside Rx: 10 meq Capsule, extended release Take 1 PO daily Date started: 2014. Ranexa, po solid sr (ranolazine): Outside Rx: 500 mg Tablet, extended release 12 hr Take 1 PO daily. Revlimid, po solid (lenalidomide): 10 mg Capsule Take 1 PO daily, Instructions: [facility]# [id number] Adult Female - NOT of Childbearing Potential. Rosuvastatin calcium, po solid: Outside Rx: 10 mg Tablet Take 1 PO daily Date started: 2014. Sertraline hcl, po solid: Outside Rx: 50 mg Tablet Take 1 PO daily Date started: 11/03/2019. Ultram, po solid (tramadol hcl): 50 mg Tablet Take 1 PO Q6H. Allergies: No known medication allergies Allergies*: NKA. 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 Family History: Father: Mother: - Coronary artery disease, Myocardial infarction Family History*: no family history of bleeding or clotting disorders in first degree relatives, no family history of malignancy or hematologic disorders in first degree relatives. Family history is negative for: Breast cancer, colon cancer, ovarian cancer, uterine cancer, other cancer. ROS: General: no weight loss, no anorexia, no fevers, no chills HEENT: no sore throat, no epistaxis, no earache, no oral sores Cardiac: no chest pain, no orthopnea, no paroxysmal nocturnal dyspnea, no palpitations, no dizziness, no lightheadedness, no ankle swelling Pulmonary: no cough, no hemoptysis Genitourinary: no dysuria, no hematuria, no nocturia Gastrointestinal: no nausea, no vomiting, no dysphagia, no diarrhea, no melena, no hematochezia Musculoskeletal: no back pain, reports joint pain, no joint swelling Dermatological: no rash, no changes of the skin that worry Endocrine: no polyuria, no excessive thirst, no facial swelling Neurological: no motor weakness in extremities, no severe generalized weakness Vitals: Height: 57 in; Weight: 125.2 lb; Blood pressure: 129/72, Pulse: 77, Temperature: 97.4 F, Respirations: 16, Pain Scale: 0 Karnofsky: 60% (Date: 03/28/2024) Physical Exam: General: No acute distress. Well-developed. HEENT: Normocephalic. Atraumatic. EOMI. PERRLA. Moist mucous membranes. No oral lesions. Oral cavity is clear. Neck: Supple. No cervical adenopathy. No supraclavicular adenopathy. Spine: Nontender to percussion. Lungs: No increased work of breathing. No use of accessory muscles. Heart: Good peripheral perfusion. Abdomen: Soft. Extremities: No lower extremity edema. No cyanosis. No clubbing. Normal 2+ pulses bilaterally. Neurological: Intact. Problem List: Monoclonal gammopathy of uncertain significance (disorder) ( Date of Dx:07/2019 ; ICD-10:D47.2 ;Monoclonal gammopathy ) Multiple myeloma (disorder) ( Stage Date: 08/28/2019, Stage Stage III: Serum B2- microglobulin >=5.5 mg/L Date of Dx:08/2019 ; ICD-10:C90.02 ;Multiple myeloma in relapse ) Neutropenia (finding) ( ICD-10:D70.9 ;Neutropenia, unspecified ) Anemia of chronic disorder (disorder) ( ICD-10:D63.8 ;Anemia in other chronic diseases classified elsewhere ) Backache (finding) ( ICD-10:M54.9 ;Dorsalgia, unspecified ) Coronary arteriosclerosis (disorder) ( ICD-10:I25.10 ;Atherosclerotic heart disease of [place] coronary artery without angina pectoris ) Essential hypertension (disorder) ( ICD-10:I10 ;Essential (primary) hypertension ) Knee pain (finding) ( ICD-10:M25.561 ;Pain in right knee ) Low back pain (finding) ( ICD-10:M54.50 ;Low back pain, unspecified ) Other long-term current use of drug therapy ( ICD-10:Z79.899 ;Other senior care (current) drug therapy ) Secondary malignant neoplasm of bone (disorder) ( ICD-10:C79.51 ;Secondary malignant neoplasm of bone ) Severe pain (finding) ( ICD-10:R52 ;Pain, unspecified ) Impression: 1. History of multiple myeloma bone marrow biopsy showing plasma cell of about 50%. Patient was started on chemotherapy treatment with Revlimid, dexamethasone and daratumumab. Patient has received 9 cycles and is tolerating treatment well. Patient went through almost complete remission. This patient is receiving maintenance therapy with Revlimid 10 mg p.o. daily for 21 days and 1 week off 2. Skeletal bone survey done 08/23/2019 revealed compression fracture to L2. One marrow biopsy was done 03/2020 which showed only 2% of plasma cell. 3. Patient with history of severe pain radiating to the right leg. Pain improved significantly after patient was started on treatment. 4. Anemia, stable. 5. Right lower extremity DVT. Patient on Eliquis 2.5 mg by mouth twice daily. 6. Depression with no suicidal ideation. Patient is currently on duloxetine. 7. Status post fall with the patient have severe pain to the buttock area. Patient supposed to have surgery with Dr. Romero but was delayed because of sepsis. 8. Hypokalemia, secondary to diuretics 9. Thrombocytopenia 10. New onset thoracic back pain 11. Chronic lumbar pain 12. Hyperlipidemia Plan: 1. Multiple myeloma, It seems the patient is in complete remission. Her last monoclonal protein was stable. Patient to continue maintenance therapy with Revlimid 10 mg for 21 days on and 1 week off, dexamethasone 40 mg once weekly, and acyclovir twice daily. previous lab was done with SPEP, free light chain and UPEP were negative for monoclonal protein. There is no need for bone marrow biopsy 2. Anemia, hemoglobin on today's visit was 9.9 g/dL. No need for blood product transfusion at this time. 3. Iron studies were done on visit, reported within normal range. No need for oral iron supplement at this time. 4. Thrombocytopenia, platelet count on visit 45 K. No need for platelet product transfusion. We will continue to monitor. Reviewed thrombocytopenic precautions with patient and family. 5. History of DVT to right lower extremity, continue Eliquis 2.5 mg p.o. twice daily. Family to monitor for any obvious signs of bleeding, call clinic with any concerns. 6. Chronic pain, patient on buprenorphine transdermal patch, keep follow up appointment with pain management Dr. Esparza. This patient to receive Toradol 15 mg every 6 hours as needed IV for pain. Patient also to receive dexamethasone 10 mg IV with Toradol 7. This patient could receive Vicodin 5/325 1 tablet every 4 hours as needed 8. This patient may be will need PET CT scan to be done. If the PET CT scan is negative then maybe this patient should have MRI done for her. LAB RESULTS 07/31/24 15:22: Whole Blood Glucose 185H 07/31/24 05:12: White Blood Count 7.1#, Red Blood Count 3.35L, Hemoglobin 9.9L, Hematocrit 30.1L, Mean Corpuscular Volume 89.9, Mean Corpuscular Hemoglobin 29.6, Mean Corpuscular Hemoglobin Concent 32.9, Red Cell Distribution Width 16.9H, Platelet Count 45L, Mean Platelet Volume 13.2H, Immature Granulocyte % (Auto) 8.8H, Neutrophils (%) (Auto) 65.8, Lymphocytes (%) (Auto) 9.4L, Monocytes (%) (Auto) 15.6H, Eosinophils (%) (Auto) 0.0, Basophils (%) (Auto) 0.4, Neutrophils # (Auto) 4.7, Lymphocytes # (Auto) 0.7L, Monocytes # (Auto) 1.1H, Eosinophils # (Auto) 0.00, Basophils # (Auto) 0.03, Absolute Immature Granulocyte (auto 0.63, Nucleated Red Blood Cells 0.0, Sodium Level 145, Potassium Level 4.2, Chloride Level 111, Carbon Dioxide Level 24, Blood Urea Nitrogen 13, Creatinine 0.5, Glomerular Filtration Rate Calc 90, Random Glucose 152H, Total Calcium 8.0L, Phosphorus Level 2.8, Magnesium Level 2.20, B-Type Natriuretic Peptide 118H, Thyroid Stimulating Hormone (TSH) 0.54 07/30/24 13:40: Urine Color YELLOW, Urine Appearance CLOUDYH, Urine pH 5.5, Urine Specific [place] 1.024, Urine Protein 50H, Urine Glucose (UA) 300H, Urine Ketones 5H, Urine Occult Blood LARGEH, Urine Nitrate NEGATIVE, Urine Bilirubin NEGATIVE, Urine Urobilinogen 0.2, Urine Leukocyte Esterase 500H, Urine RBC 11-25H, Urine WBC TNTCH, Urine WBC Clumps (Auto) FEW, Urine Squamous Epithelial Cells FEW, Urine Bacteria RARE 07/30/24 10:23: White Cell Morphology Comment See comments, Platelet Morphology Comment DECREASED, Total Creatine Kinase 20L, Troponin I High Sensitivity 5.4 Laboratory Tests Test 07/30/24 20:00 07/31/24 05:12 07/31/24 05:14 07/31/24 11:11 Whole Blood Glucose 200 MG/DL (70-110) H 152 MG/DL (70-110) H 144 MG/DL (70-110) H White Blood Count 7.1 K/uL (4.8-10.8) # Red Blood Count 3.35 MIL/uL (4.00-5.50) L Hemoglobin 9.9 g/dL (12.0-16.0) L Hematocrit 30.1 % (36-48) L Mean Corpuscular Volume 89.9 fL (79-99) Mean Corpuscular Hemoglobin 29.6 pg (27.0-33.0) Mean Corpuscular Hemoglobin Concent 32.9 g/dL (32.0-36.0) Red Cell Distribution Width 16.9 % (11.0-15.5) H Platelet Count 45 K/uL (130-400) L Mean Platelet Volume 13.2 fL (7.5-10.5) H Immature Granulocyte % (Auto) 8.8 % (0-1) H Neutrophils (%) (Auto) 65.8 % (40.0-77.0) Lymphocytes (%) (Auto) 9.4 % (21.0-51.0) L Monocytes (%) (Auto) 15.6 % (3.0-13.0) H Eosinophils (%) (Auto) 0.0 % (0.0-8.0) Basophils (%) (Auto) 0.4 % (0.0-5.0) Neutrophils # (Auto) 4.7 K/uL (1.8-7.7) Lymphocytes # (Auto) 0.7 K/uL (1.0-4.8) L Monocytes # (Auto) 1.1 K/uL (0.1-1.0) H Eosinophils # (Auto) 0.00 K/uL (0.00-0.70) Basophils # (Auto) 0.03 K/uL (0.00-0.20) Absolute Immature Granulocyte (auto 0.63 K/uL (0-1) Nucleated Red Blood Cells 0.0 % (0.0-0.19) Sodium Level 145 mmol/L (136-145) Potassium Level 4.2 mmol/L (3.5-5.1) Chloride Level 111 mmol/L (101-111) Carbon Dioxide Level 24 mmol/L (21-32) Blood Urea Nitrogen 13 mg/dL (7-18) Creatinine 0.5 mg/dL (0.5-1.0) Glomerular Filtration Rate Calc 90 mL/min (>90) Random Glucose 152 mg/dL (70-105) H Total Calcium 8.0 mg/dL (8.5-10.1) L Phosphorus Level 2.8 mg/dL (2.5-4.9) Magnesium Level 2.20 mg/dL (1.80-2.40) B-Type Natriuretic Peptide 118 pg/mL (0-100) H Thyroid Stimulating Hormone (TSH) 0.54 uIU/mL (0.36-3.74) Test 07/31/24 15:22 Whole Blood Glucose 185 MG/DL (70-110) H MEGGAN DAHL MD Jul 31, 2024 17:32
[2024-07-31] MEDS: RANOLAZINE 500 MG TAB.SR.12H PO SCH (20:11)
[2024-07-31] MEDS: ketOROlac 15MG/ML VIAL (15MG/ML) IV PRN (20:14)
[2024-07-31] MEDS: dexaMETHasone SOD PHOSPHATE 4 MG/ML 1ML VIAL IVP SCH (20:19)
[2024-07-31] MEDS ORDERED: APIXaban 2.5 MG TABLET PO SCH (21:00)
[2024-08-01 04:44] VITALS: BP 140/84; PULSE 75; RESP 18; TEMP 97.8
[2024-08-01 05:12] LABS: BASOPHILS # (AUTO) 0.02 K/uL (0.00-0.20); BASOPHILS % (AUTO) 0.3 % (0.0-5.0); HEMATOCRIT 29.6 % (36-48); IMMATURE GRANULOCYTE ABSOLUTE 0.55 K/uL (0-1); LYMPHOCYTES # (AUTO) 0.6 K/uL (1.0-4.8); LYMPHOCYTES % (AUTO) 8.2 % (21.0-51.0); MEAN CORPUSCULAR HGB CONC 32.8 g/dL (32.0-36.0); MEAN CORPUSCULAR VOLUME 91.6 fL (79-99); MONOCYTES # (AUTO) 1.2 K/uL (0.1-1.0); MONOCYTES % (AUTO) 16.9 % (3.0-13.0); NEUTROPHILS # (AUTO) 4.8 K/uL (1.8-7.7); NUCLEATED RED BLOOD CELLS 0.3 % (0.0-0.19); PLATELET COUNT (AUTO) 39 K/uL (130-400); RED BLOOD CELL COUNT(AUTO) 3.23 MIL/uL (4.00-5.50); RED CELL DISTRIBUTION WIDTH 17.3 % (11.0-15.5); WHITE BLOOD COUNT (AUTO) 7.2 K/uL (4.8-10.8)
[2024-08-01 05:23] LABS: CREATININE 0.6 mg/dL (0.5-1.0); POTASSIUM 3.9 mmol/L (3.5-5.1)
[2024-08-01 08:00] VITALS: BP 147/67; PULSE 74; RESP 18; TEMP 98.2; O2SAT 100
--- NOTE | 2024-08-01 08:00 | NUR ---
Educated patient and family members of pain management, plan of care , home medications and physical therapy. Patient and family members verbalized understanding.
[2024-08-01] MEDS: PANTOPrazole 40 MG TAB DR PO SCH (09:13)
[2024-08-01] MEDS: SERTraline HCL 50 MG TABLET PO SCH (09:13)
[2024-08-01] MEDS: FOLic ACID 1 MG TABLET PO SCH (09:13)
[2024-08-01] MEDS: ISOSORBIDE MONO 60MG SR TAB PO SCH (09:14)
[2024-08-01] MEDS: amLODIPine 2.5 MG TAB PO SCH (09:14)
[2024-08-01] MEDS: furoSEMIDE 20 MG TABLET PO SCH (09:14)
[2024-08-01] MEDS: PoTASSium chloRIDE 20MEQ ER 20 MEQ ERTAB PO SCH (09:16)
[2024-08-01 09:38] LABS: INR 1.01 (0.85-1.15); PROTHROMBIN TIME 10.9 SEC (9.6-11.6)
--- NOTE | 2024-08-01 11:30 | NUR ---
Blood glucose 177. Covered with 2 units of Humulin R subcutaneous; following insulin scale.
[2024-08-01 12:00] VITALS: BP 138/64; PULSE 64; RESP 18; TEMP 97.9
[2024-08-01] MEDS ORDERED: traMADol HCL 50 MG TABLET PO PRN (13:00)
[2024-08-01] MEDS ORDERED: hydroMORPHone 0.5 MG SYG (0.5MG/0.5ML) IVP PRN (13:00)
[2024-08-01] MEDS: BACLOFEN 10 MG TABLET PO SCH (13:17)
--- NOTE | 2024-08-01 13:43 | PN ---
Ms. Soliman is an 88 year old female with a past medical history significant for hypertension, coronary artery disease, and chronic renal insufficiency. Patient was found to have monoclonal protein of 1.4 gm/dl. Bone marrow biopsy showed patient to have 50% plasma cells consistent with multiple myeloma. Skeletal bone survey done 08/24/2019 showed disc space narrowing at C5-C6 and L4-L5 and L5-S1 levels with endplate changes. Mild compression fracture involving C7 with 20% loss of height. Superior endplate compression fracture involving L2 with 25% loss of height. Patient was complaining of low back pain radiating to bilateral lower extremities, right worse than left. Patient was started on chemotherapy with daratumumab, lenalidomide, and dexamethasone. Patient was admitted to the hospital for evaluation of right lower leg extremity edema. Patient was found to have a DVT and patient is taking Eliquis 2.5 mg p.o. twice daily. Patient had bone marrow biopsy after 6 cycles with the patient have only 2% of plasma cell. Patient is almost in complete remission.Patient is in clinic today for follow-up and reports lower back pain. The patient actually have complete remission with the daratumumab was a stopped. Patient is receiving lenalidomide 10 mg every day for 21 days and 1 week off. Patient continues to be on dexamethasone 20 mg weekly. Her last SPEP showed 0.1 g/deciliter monoclonal protein which was a stable. She denies fever, chills, night sweats, dizziness, headaches, shortness of breath, cough, chest pain, nausea, vomiting, diarrhea, constipation, abdominal pain or distention, hematuria, or blood in her stool. PET CT scan was done December 18, 2021 which was negative for any increased uptake to the bone to suggest any metastatic disease. There was some consolidation to the lung consistent with infection or inflammatory process. Patient was admitted to the hospital because of severe back pain. Patient received pain medication. This patient is doing very well at this time. Her platelet is low. Patient does anticoagulation with Eliquis Physical Exam: General: No acute distress. Well-developed. HEENT: Normocephalic. Atraumatic. EOMI. PERRLA. Moist mucous membranes. No oral lesions. Oral cavity is clear. Neck: Supple. No cervical adenopathy. No supraclavicular adenopathy. Spine: Nontender to percussion. Lungs: No increased work of breathing. No use of accessory muscles. Heart: Good peripheral perfusion. Abdomen: Soft. Extremities: No lower extremity edema. No cyanosis. No clubbing. Normal 2+ pulses bilaterally. Neurological: Intact. Impression: 1. History of multiple myeloma bone marrow biopsy showing plasma cell of about 50%. Patient was started on chemotherapy treatment with Revlimid, dexamethasone and daratumumab. Patient has received 9 cycles and is tolerating treatment well. Patient went through almost complete remission. This patient is receiving maintenance therapy with Revlimid 10 mg p.o. daily for 21 days and 1 week off 2. Skeletal bone survey done 08/23/2019 revealed compression fracture to L2. One marrow biopsy was done 03/2020 which showed only 2% of plasma cell. 3. Patient with history of severe pain radiating to the right leg. Pain improved significantly after patient was started on treatment. 4. Anemia, stable. 5. Right lower extremity DVT. Patient on Eliquis 2.5 mg by mouth twice daily. 6. Depression with no suicidal ideation. Patient is currently on duloxetine. 7. Status post fall with the patient have severe pain to the buttock area. Patient supposed to have surgery with Dr. Romero but was delayed because of sepsis. 8. Hypokalemia, secondary to diuretics 9. Thrombocytopenia 10. New onset thoracic back pain 11. Chronic lumbar pain 12. Hyperlipidemia Plan: 1. Multiple myeloma, It seems the patient is in complete remission. Her last monoclonal protein was stable. Patient to continue maintenance therapy with Revlimid 10 mg for 21 days on and 1 week off, dexamethasone 40 mg once weekly, and acyclovir twice daily. previous lab was done with SPEP, free light chain and UPEP were negative for monoclonal protein. There is no need for bone marrow biopsy 2. Anemia, hemoglobin on today's visit was 9.9 g/dL. No need for blood product transfusion at this time. 3. Iron studies were done on visit, reported within normal range. No need for oral iron supplement at this time. 4. Thrombocytopenia, platelet count on visit 45 K. No need for platelet product transfusion. We will continue to monitor. Reviewed thrombocytopenic precautions with patient and family. 5. History of DVT to right lower extremity, continue Eliquis 2.5 mg p.o. twice daily. Her platelet count is low. We will hold on her Eliquis until she discharged and follow-up with me as outpatient 6. Chronic pain, patient on buprenorphine transdermal patch, keep follow up appointment with pain management Dr. Esparza. This patient to receive Toradol 15 mg every 6 hours as needed IV for pain. Patient also to receive dexamethasone 10 mg IV with Toradol 7. This patient could receive Vicodin 5/325 1 tablet every 4 hours as needed 8. If patient is stable could be discharged home to follow-up with me as outpatient Vitals/Labs Vital Signs Date Time Temp Pulse Resp B/P (MAP) Pulse Ox O2 Delivery O2 Flow Rate FiO2 08/01/24 12:00 97.9 64 18 138/64 92 Room Air 08/01/24 08:00 0 21 Laboratory Tests 08/01/24 04:39 Medications Current Medications Hydromorphone HCl 1 mg ONCE ONCE IVP Last administered on 07/30/24at 10:31; Start 07/30/24 at 10:30; Stop 07/30/24 at 10:31; Status DC Ketorolac Tromethamine 15 mg ONCE ONCE IV Last administered on 07/30/24at 10:30; Start 07/30/24 at 10:30; Stop 07/30/24 at 10:31; Status DC Azithromycin 500 mg DAILY IV Last administered on 07/31/24at 08:51; Start 07/31/24 at 09:00; Stop 08/01/24 at 08:53; Status DC Ceftriaxone Sodium 2 gm Q24H IVP Last administered on 07/30/24at 12:52; Start 07/30/24 at 12:30; Stop 07/31/24 at 11:25; Status DC Enoxaparin Sodium 40 mg DAILY SQ; Start 07/31/24 at 09:00; Stop 08/01/24 at 08:53; Status DC Acetaminophen 650 mg Q6H PRN PO Last administered on 07/31/24at 08:51; Start 07/30/24 at 12:30; Stop 08/29/24 at 12:29 Acetaminophen 650 mg Q6H PRN RC; Start 07/30/24 at 12:30; Stop 08/29/24 at 12:29 Tramadol HCl 50 mg Q6H PRN PO; Start 07/30/24 at 12:30; Stop 07/31/24 at 18:00; Status DC Hydromorphone HCl 0.5 mg Q4H PRN IVP Last administered on 07/31/24at 11:26; Start 07/30/24 at 12:30; Stop 07/31/24 at 11:26; Status DC Insulin Human Regular INSULIN SLIDING SCAL... ACHS SQ Last administered on 08/01/24at 13:15; Start 07/30/24 at 16:30; Stop 08/29/24 at 16:29 Sodium Chloride 4 ml STK-MED ONCE IH Last administered on 07/31/24at 06:56; Start 07/30/24 at 13:19; Stop 07/30/24 at 13:23; Status DC Baclofen 5 mg TID PO Last administered on 08/01/24at 09:13; Start 07/30/24 at 21:00; Stop 08/01/24 at 13:04; Status DC Magnesium Sulfate 50 ml @ 0 mls/hr PROTOCOL PRN IV Last administered on 07/30/24at 22:43; Start 07/30/24 at 19:30; Stop 08/29/24 at 19:29 Potassium Chloride 100 ml @ 100 mls/hr AD PRN IV; Start 07/30/24 at 19:30; Stop 08/29/24 at 19:29 Potassium Chloride 20 meq AD PRN PO; Start 07/30/24 at 19:30; Stop 08/29/24 at 19:29 Potassium Chloride 20 meq AD PRN PO Last administered on 07/30/24at 22:44; Start 07/30/24 at 19:30; Stop 08/29/24 at 19:29 Baclofen 10 mg STK-MED ONCE .ROUTE; Start 07/30/24 at 19:53; Stop 07/30/24 at 19:53; Status DC Sodium Chloride 4 ml STK-MED ONCE IH; Start 07/31/24 at 06:24; Stop 07/31/24 at 06:25; Status DC Nitroglycerin 0.4 mg AD PRN SL Last administered on 07/31/24at 11:20; Start 07/31/24 at 11:00; Stop 08/30/24 at 10:59 Sodium Chloride 4 ml STK-MED ONCE IH Last administered on 07/31/24at 10:55; Start 07/31/24 at 10:51; Stop 07/31/24 at 10:51; Status DC Amlodipine Besylate 2.5 mg DAILY PO Last administered on 08/01/24at 09:14; Start 08/01/24 at 09:00; Stop 08/31/24 at 08:59 Apixaban 2.5 mg BID PO; Start 07/31/24 at 21:00; Stop 07/31/24 at 11:33; Status DC Folic Acid 1 mg DAILY PO Last administered on 08/01/24at 09:13; Start 08/01/24 at 09:00; Stop 08/31/24 at 08:59 Furosemide 20 mg DAILY PO Last administered on 08/01/24at 09:14; Start 08/01/24 at 09:00; Stop 08/31/24 at 08:59 Isosorbide Mononitrate 60 mg DAILY PO Last administered on 08/01/24at 09:14; Start 08/01/24 at 09:00; Stop 08/31/24 at 08:59 Pantoprazole Sodium 40 mg DAILY PO Last administered on 08/01/24at 09:13; Start 08/01/24 at 09:00; Stop 08/31/24 at 08:59 Potassium Chloride 20 meq DAILY PO Last administered on 08/01/24at 09:16; Start 08/01/24 at 09:00; Stop 08/31/24 at 08:59 Ranolazine 500 mg BID PO Last administered on 08/01/24at 09:13; Start 07/31/24 at 21:00; Stop 08/30/24 at 20:59 Pregabalin 50 mg BID PO Last administered on 08/01/24at 09:15; Start 07/31/24 at 14:30; Stop 08/01/24 at 13:04; Status DC Sertraline HCl 100 mg DAILY PO Last administered on 08/01/24at 09:13; Start 08/01/24 at 09:00; Stop 08/31/24 at 08:59 Ceftriaxone Sodium 2 gm Q24H IVP Last administered on 08/01/24at 13:05; Start 07/31/24 at 11:30; Stop 08/09/24 at 12:29 Hydromorphone HCl 0.5 mg Q4H PRN IVP Last administered on 07/31/24at 16:25; Start 07/31/24 at 11:30; Stop 08/01/24 at 13:04; Status DC Sodium Chloride 4 ml STK-MED ONCE IH; Start 07/31/24 at 14:05; Stop 07/31/24 at 14:07; Status DC Alprazolam 0.25 mg BID PRN PO Last administered on 07/31/24at 20:19; Start 07/31/24 at 14:30; Stop 08/30/24 at 14:29 Gabapentin 100 mg TID PO; Start 07/31/24 at 14:30; Stop 07/31/24 at 14:28; Status DC Ketorolac Tromethamine 15 mg Q8H5 PRN IV Last administered on 08/01/24at 05:18; Start 07/31/24 at 18:00; Stop 08/05/24 at 17:59 Dexamethasone Sodium Phosphate 10 mg Q8H5 IVP Last administered on 08/01/24at 13:07; Start 07/31/24 at 21:00; Stop 08/30/24 at 20:59 Baclofen 10 mg TID PO Last administered on 08/01/24at 13:17; Start 08/01/24 at 14:00; Stop 08/31/24 at 13:59 Hydromorphone HCl 0.5 mg Q6H6 PRN IVP; Start 08/01/24 at 13:00; Stop 08/04/24 at 12:29 Pregabalin 75 mg BID PO; Start 08/01/24 at 21:00; Stop 08/31/24 at 20:59 Tramadol HCl 50 mg Q8H6 PRN PO; Start 08/01/24 at 13:00; Stop 08/06/24 at 12:59 MEGGAN DAHL MD Aug 01, 2024 13:43
--- NOTE | 2024-08-01 14:03 | PN ---
[facility] PROGRESS NOTE Date Patient Seen: Aug 01, 2024 Time of Visit: 14:03 Supervising Physician: [ ] Primary Care Physician: Dr. Davis Outpatient Specialists: [ ] Inpatient Consults: Dr. Winchester (oncology) PROBLEM LIST: New onset thoracic back pain Chronic lumbar pain Acute complicated cystitis Osteopenia Thrombocytopenia Immunocompromised status Multiple myeloma Hyperlipidemia Chronic anemia Plan Pending oncology consultation Continue with pain management on schedule Continue Rocephin Continue baclofen Pending thoracic CT INTERVAL HISTORY: Patient was evaluated at bedside during an episode of severe chest pain, 06/15 as patient described. An EKG was performed and patient was slightly elevated heart rate however sinus rhythm. Nitroglycerin was given as well as 0.5 Dilaudid. Once pain resolved patient was revisited, when asked if the pain she was experiencing seemed like it was coming from the center of her chest or her back she stated it was the back. This is consistent with her original complaint of thoracic back pain. Nursing staff was advised to continue with scheduled pain management, her oncologist has been consulted at this time for possible metastases or plasmacytoma. We are also ordering a CT thoracic spine at this time. Patient continues on Rocephin at this time. Plan was to start the patient on adjusted dose Neurontin however her home prescription for Lyrica has been restarted. Holding anticoagulants due to thrombocytopenia. Pending recommendations from Oncology. REVIEW OF SYSTEMS: 12 point ROS reviewed with patient. Pertinent positives mentioned above. Otherwise negative. PHYSICAL EXAM: GENERAL: alert, weak, awake oriented x 3 HEENT: EOMI, Sclera non icteric, moist mucosa NECK: Supple, no JVD, trachea midline LUNGS: Clear breath sounds bilaterally. No wheezes HEART: Regular rate and rhythm. Normal S1 and S2, without murmurs ABD: Abdomen soft, nontender. Bowel sounds present EXT: No clubbing cyanosis or edema NEURO: Alert and oriented to person, follows commands Vital Signs (last 8hr) Date Time Temp Pulse Resp B/P (MAP) Pulse Ox O2 Delivery O2 Flow Rate FiO2 08/01/24 12:00 97.9 64 18 138/64 92 Room Air 08/01/24 08:00 100 Room Air* 0 21 08/01/24 08:00 98.2 74 18 147/67 100 Room Air LABS: Hematology Labs: Test 08/01/24 04:39 Range/Units White Blood Count 7.2 4.8-10.8 K/uL Red Blood Count 3.23 L 4.00-5.50 MIL/uL Hemoglobin 9.7 L 12.0-16.0 g/dL Hematocrit 29.6 L 36-48 % Mean Corpuscular Volume 91.6 79-99 fL Mean Corpuscular Hemoglobin 30.0 27.0-33.0 pg Mean Corpuscular Hemoglobin Concent 32.8 32.0-36.0 g/dL Red Cell Distribution Width 17.3 H 11.0-15.5 % Platelet Count 39 L 130-400 K/uL Mean Platelet Volume 7.5-10.5 fL Immature Granulocyte % (Auto) 7.6 H 0-1 % Neutrophils (%) (Auto) 67.0 40.0-77.0 % Lymphocytes (%) (Auto) 8.2 L 21.0-51.0 % Monocytes (%) (Auto) 16.9 H 3.0-13.0 % Eosinophils (%) (Auto) 0.0 0.0-8.0 % Basophils (%) (Auto) 0.3 0.0-5.0 % Neutrophils # (Auto) 4.8 1.8-7.7 K/uL Lymphocytes # (Auto) 0.6 L 1.0-4.8 K/uL Monocytes # (Auto) 1.2 H 0.1-1.0 K/uL Eosinophils # (Auto) 0.00 0.00-0.70 K/uL Basophils # (Auto) 0.02 0.00-0.20 K/uL Absolute Immature Granulocyte (auto 0.55 0-1 K/uL Nucleated Red Blood Cells 0.3 H 0.0-0.19 % Chemistry Labs: Test 08/01/24 11:31 08/01/24 04:39 07/31/24 05:12 Range/Units Whole Blood Glucose 177 H 70-110 MG/DL Sodium Level 144 136-145 mmol/L Potassium Level 3.9 3.5-5.1 mmol/L Chloride Level 110 101-111 mmol/L Carbon Dioxide Level 26 21-32 mmol/L Blood Urea Nitrogen 17 7-18 mg/dL Creatinine 0.6 0.5-1.0 mg/dL Glomerular Filtration Rate Calc 86 >90 mL/min Random Glucose 178 H 70-105 mg/dL Total Calcium 7.8 L 8.5-10.1 mg/dL Phosphorus Level 2.8 2.5-4.9 mg/dL Magnesium Level 2.20 1.80-2.40 mg/dL B-Type Natriuretic Peptide 118 H 0-100 pg/mL Thyroid Stimulating Hormone (TSH) 0.54 0.36-3.74 uIU/mL Coagulation Labs: Test 08/01/24 09:15 Range/Units Prothrombin Time 10.9 9.6-11.6 SEC Prothromb Time International Ratio 1.01 0.85-1.15 DIAGNOSTICS / RADIOLOGY RESULTS: [ ] PLAN NEURO: Minimize central acting medications as possible. Maintain fall precautions, adequate lighting during the day PULMONARY: Supplemental 02 as needed. Maintain aspiration precautions at all times CARDIOVASCULAR: Follow hemodynamics. Vital signs per facility protocol GI & NUTRITION: Continue with nutritional support. Continue stool softeners and laxatives as needed. KIDNEYS & ELECTROLYTES: Strict monitoring of intake, output and overall fluid balance. Avoid nephrotoxic medications to the extent possible. Medications to be dosed according to renal function. Monitor electrolytes and replace as needed ENDOCRINE: Maintain blood glucose between 100-180 at all times. Hypoglycemia protocol in place INFECTIOUS DISEASE: Trend temperature, WBC and procalcitonin level Follow cultures, deescalate antibiotics as soon as possible. Panculture if new onset fever ONCOLOGY/HEMATOLOGY/COAGULATION: Monitor for s/s of bleeding Monitor hemoglobin, coagulation studies as needed SKIN: Pressure ulcer prevention per facility protocol Specialty mattress ORTHO/REHAB: Continue PT/OT Prophylaxis: Continue GI and DVT prophylaxis Code Status: Full Resuscitation Disposition: TBD Other: Total patient care time exceeds 35 minutes excluding all procedures. MIRZA MARQUEZ Aug 01, 2024 14:03
[2024-08-01 16:00] VITALS: BP 142/74; PULSE 74; RESP 18; TEMP 97.9
--- NOTE | 2024-08-01 16:30 | NUR ---
Blood glucose 160. No insulin coverage at this moment.
--- NOTE | 2024-08-01 17:09 | DS ---
[facility] DISCHARGE SUMMARY Date Patient Seen: Aug 01, 2024 Time of Visit: 17:07 Supervising Physician: [Dr. Marin] Primary Care Physician: Dr. Davis Outpatient Specialists: [ ] Inpatient Consults: Dr. Winchester (oncology) PROBLEM LIST: New onset thoracic back pain Chronic lumbar pain Acute complicated cystitis Osteopenia Thrombocytopenia Immunocompromised status Multiple myeloma Hyperlipidemia Chronic anemia Plan Follow up with oncology outpatient Keep appt with pain management Continue current pain medication HOSPITAL COURSE: HPI (per admitting provider) Patient is an 89-year-old female with a past medical history significant for multiple myeloma, immunocompromised status, thrombocytopenia, and chronic lumbar back pain, who presents today with new onset thoracic back pain. Patient's daughter was present at the time of evaluation in the emergency room, states that they just returned yesterday from a trip to [place] with the patient was on a flight for 8 hours, states that the patient is usually in better in the wheelchair and does not do much ambulation however she exerted herself significantly during the trip. Patient had a CT scan performed of the chest and abdomen which was positive for severe compression deformities of the L2 and L3 likely that the source of her chronic lower back pain as well as mild compression deformities of the L1, L4, and T12 vertebrae. Upon evaluation the patient was able to describe the location of her pain which is indicative more of supraspinal muscle pain especially with recent prolonged trip to [place]. Patient was given 50 mg of tramadol in the emergency room which alleviated her pain completely. Patient has chronic vertebral compression fractures which per discussion with daughter at bedside were previously considered for surgery but given patient's age and comorbidities, it was not performed. Her pain was improved prior to discharge. PT evaluated the patient and was cleared for safe discharge home. Patient was advised to continue pain management and to keep appt as scheduled outpatient. Oncology evaluated the patient and is recommending PET/CT scan outpatient for monitoring of multiple myeloma. Will hold eliquis upon discharge given decrease in platelets. Patient advised to follow up with Dr. Winchester in one week for reevaluation and repeat labs. CHRONIC PROBLEMS: continue previous management per PCP unless otherwise indicated HALF BACKER FINDINGS/RECOMMENDATIONS: [Hold eliquis. Follow up outpatient for imaging studies.] DISCHARGE MEDICATIONS: continue same as prior, hold eliquis pending improved platelets. Pt hemodynamically stable and afebrile at time of discharge. PCP notified of patients admission, hospital course and discharge. Continued Medications: Acyclovir (Acyclovir) 400 Mg Tablet 400 MG PO BID, TAB Amlodipine Besylate (Amlodipine Besylate) 2.5 Mg Tablet 1 TAB PO DAILY for 30 Days, #30 TAB 0 Refills Dexamethasone (Dexamethasone) 4 Mg Tablet 10 TAB PO QWEEK for 30 Days, #40 TAB 0 Refills Take 2 tablets 3 times a day for 2 days, then 1 tablet 3 times a day for 2 days, then 1 tablet twice daily for 2 days, then 1 Folic Acid (Folvite) 1 Mg Tab 1 MG PO DAILY, TAB Furosemide (Furosemide) 20 Mg Tablet 1 TAB PO DAILY for 30 Days, #30 TAB 0 Refills Isosorbide Mononitrate (Isosorbide Mononitrate ER) 60 Mg Tab.er.24h 1 TAB PO DAILY for 30 Days, #30 TAB 0 Refills Lenalidomide (Revlimid) 10 Mg Capsule 1 CAP PO AD Pantoprazole Sodium (Pantoprazole Sodium) 40 Mg Tablet.dr 1 TAB PO DAILY for 30 Days, #30 TAB 0 Refills Potassium Chloride (Potassium Chloride) 20 Meq Tab.er.prt 1 TAB PO DAILY for 30 Days, #30 TAB 0 Refills Pregabalin (Pregabalin) 50 Mg Capsule 1 CAP PO BID MDD 2 Capsule(s) for 30 Days, #60 CAP 0 Refills Ranolazine (Ranexa) 500 Mg Tab.er.12h 500 MG PO BID, TAB Rosuvastatin Calcium (Rosuvastatin Calcium) 10 Mg Tablet 10 MG PO DAILYDINNER, TAB Sertraline HCl (Sertraline HCl) 100 Mg Tablet 1 TAB PO DAILY for 30 Days, #30 TAB 0 Refills Discontinued Medications: Apixaban (Eliquis) 2.5 Mg Tablet 2.5 MG PO BID, TAB PHYSICAL EXAM: GENERAL: alert, weak, awake oriented x 3 HEENT: EOMI, Sclera non icteric, moist mucosa NECK: Supple, no JVD, trachea midline LUNGS: Clear breath sounds bilaterally. No wheezes HEART: Regular rate and rhythm. Normal S1 and S2, without murmurs ABD: Abdomen soft, nontender. Bowel sounds present EXT: No clubbing cyanosis or edema NEURO: Alert and oriented to person, follows commands FOLLOW-UP: F/U with PCP in 2-3 days for reevaluation. Continue pain management medications. Keep appointment with pain management outpatient. F/U with Dr. Winchester for management of multiple myeloma. Hold eliquis (per Dr. Winchester) upon discharge until visit with Dr. Winchester in one week. Patient was cleared for discharge from physical therapy standpoint. She has also adequate family support at home. RECOMMENDATIONS: See Discharge Instructions This case was seen and discussed with my supervising physician. More than 30 minutes spent on discharge process, including evaluation of the patient, discussion with nursing staff, medication reconciliation and follow-up appointm MIRZA Larios Aug 01, 2024 17:09
--- NOTE | 2024-08-01 18:00 | NUR ---
Patient ready for discharge. Discussed Plan of care, ellyn management and follow up appointments. Patient and family members verbalized understanding. Discontinued IV access.
--- NOTE | 2024-08-01 18:37 | NUR ---
DC PLAN RECEIVED TRIGGER FOR SNF. SPOKE TO NURSE, PATIENT AND FAMILY. DID GOOD WITH PT SAID COULD GO HOME. FAMILY FELT SAFE TO DC HOME ASKED IF LEAVING TODAY. LET NURSE KNOW OF CONVERSATIONS AND EAGER TO DC HOME. Addendum: 08/01/24 at 1842 by MARY CHINO RN CM Amended: Links added.
--- NOTE | 2024-08-01 19:00 | NUR ---
Patient was discharged; was wheeled downstairs, and left in a private care with family members.
[2024-08-01] MEDS ORDERED: pregABALin 25 MG CAP PO SCH (21:00)
== END 2024-08-01 18:48 | disposition home or self-care (01) ==
LOC: EDH 09:36 → INTOOBSV 12:05 → EDHIP 12:05 → 3CH 22:04
PROVIDERS: ADMIT Internal Medicine Critical Care Medicine; ATTEND Internal Medicine Critical Care Medicine
DX: M54.6 Pain in thoracic spine (principal); M54.50 Low back pain, unspecified; N30.00 Acute cystitis without hematuria; M81.0 Age-related osteoporosis without current pathological fracture; D69.6 Thrombocytopenia, unspecified; D84.9 Immunodeficiency, unspecified; E78.5 Hyperlipidemia, unspecified; D64.9 Anemia, unspecified; C90.01 Multiple myeloma in remission; C90.02 Multiple myeloma in relapse; I12.9 Hypertensive chronic kidney disease with stage 1 through stage 4 chronic kidney disease, or unspecified chronic kidney disease; N18.9 Chronic kidney disease, unspecified; I25.10 Atherosclerotic heart disease of native coronary artery without angina pectoris; D63.8 Anemia in other chronic diseases classified elsewhere; I82.401 Acute embolism and thrombosis of unspecified deep veins of right lower extremity; E87.6 Hypokalemia; G89.29 Other chronic pain; F32.A Depression, unspecified; Z79.01 Long term (current) use of anticoagulants; Z95.5 Presence of coronary angioplasty implant and graft; Z90.710 Acquired absence of both cervix and uterus; Z79.899 Other long term (current) drug therapy
CPT/HCPCS: 96376 ×3; 96365; 99285; 82550; 83735 ×2; 84484; 80048 ×3; 85025 ×3; 87086 ×2; 87186; 82948 ×8; 81001; 36415 ×3; 74150; 71250; 96375 ×2; 96366; 96367; 84443; 84100; 83880; 71045; 72128; 93005; 94640; 85610; 97161; 97116; G0378 ×2; J3475; J1171 ×4; J0696 ×4; J1885 ×3; J1815 ×3; J0456; J1100 ×4; J1650

== ENCOUNTER 2024-10-24 13:49 | Inpatient (IN) | payer OTHER ==
[~2024-10-24] VITALS: Ht 149.9 cm; Wt 57.4 kg
[~2024-10-24 13:49] MED LIST changes: +AMLO2.5T4 PO; -AMLO5TAB4 PO; -APIX2.5T PO; -BUPR1PAT22 TD; -CALC1TAB2 PO; +DEXA4TAB PO; -FAMO20TA8 PO; +FURO20TA4 PO; +ISOS60TA77 PO; +LENA10CA PO; -PANT40GR PO; +PANT40TA54 PO; +POTA-202 PO; +PREG50CA64 PO; +SERT-440 PO
--- NOTE | 2024-10-24 14:02 | EKG ---
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 : 1935 Requested By: NEELAM RAY Order Number: [id number] Reading MD: Boy Rankin Measurements Intervals [employer] Rate: 81 P: 5 ND: 168 QRS: -19 QRSD: 88 T: 182 QT: 435 QTc: 506 Interpretive Statements Sinus rhythm Probable anteroseptal infarct, recent Abnormal T, consider ischemia, lateral leads Prolonged QT interval Compared to ECG 07/31/2024 11:05:38 Myocardial infarct finding now present T-wave abnormality now present Possible ischemia now present Prolonged QT interval now present Electronically Signed On 10-25-2024 11:53:13 EVENT MARKETING INTERN by Boy Rankin Please click the below link to view image of tracing.
[2024-10-24 14:30] LABS: BASOPHILS # (AUTO) 0.09 K/uL (0.00-0.20); BASOPHILS % (AUTO) 0.3 % (0.0-5.0); EOSINOPHILS # (AUTO) 0.01 K/uL (0.00-0.70); HEMATOCRIT 33.6 % (36-48); IMMATURE GRANULOCYTE ABSOLUTE 0.91 K/uL (0-1); LYMPHOCYTES # (AUTO) 0.8 K/uL (1.0-4.8); LYMPHOCYTES % (AUTO) 2.9 % (21.0-51.0); MEAN CORPUSCULAR HEMOGLOBIN 31.6 pg (27.0-33.0); MEAN CORPUSCULAR HGB CONC 32.1 g/dL (32.0-36.0); MEAN CORPUSCULAR VOLUME 98.2 fL (79-99); MONOCYTES # (AUTO) 4.8 K/uL (0.1-1.0); MONOCYTES % (AUTO) 17.2 % (3.0-13.0); NEUTROPHILS # (AUTO) 21.2 K/uL (1.8-7.7); NEUTROPHILS % (AUTO) 76.3 % (40.0-77.0); NUCLEATED RED BLOOD CELLS 0.1 % (0.0-0.19); PLATELET COUNT (AUTO) 54 K/uL (130-400); RED BLOOD CELL COUNT(AUTO) 3.42 MIL/uL (4.00-5.50); RED CELL DISTRIBUTION WIDTH 17.2 % (11.0-15.5); WHITE BLOOD COUNT (AUTO) 27.8 K/uL (4.8-10.8)
[2024-10-24 14:42] LABS: CREATININE 0.8 mg/dL (0.5-1.0); POTASSIUM 3.8 mmol/L (3.5-5.1)
[2024-10-24 14:43] LABS: APPEARANCE,URINE CLEAR (CLEAR); BILIRUBIN,URINE NEGATIVE (NEGATIVE); COLOR,URINE YELLOW (YELLOW); GLUCOSE, URINE (UA) 500 mg/dL (NEGATIVE); KETONES,URINE NEGATIVE (NEGATIVE); LEUKOCYTE ESTERASE ,URINE 75 Leu/uL (NEGATIVE); NITRATE,URINE 1+ (NEGATIVE); OCCULT BLOOD,URINE MODERATE (NEGATIVE); PROTEIN,URINE NEGATIVE (NEGATIVE); UROBILINOGEN,URINE 0.2 mg/dL (0.2-1.0)
[2024-10-24 14:45] LABS: ADD UA MICROSCOPIC YES
[2024-10-24 14:47] LABS: B-TYPE NATRIURETIC PEPTIDE 1190 pg/mL (0-100)
[2024-10-24 14:47] LABS: BACTERIA,URINE RARE /HPF (None Seen); MUCUS,URINE RARE LPF (None Seen); SQUAMOUS EPITHELIAL CELL,UR RARE /HPF (0-2); WBC CLUMP RARE /HPF (0-1); WBC,URINE 26-50 /HPF (0-1)
[2024-10-24 15:14] LABS: PLATELET MORPHOLOGY COMMENT DECREASED
--- NOTE | 2024-10-24 15:38 | HMCIMG ---
CHEST 1VW REASON: CHEST PAIN COMPARISON: 07/31/2024 FINDINGS: Single view of the chest was obtained. Lungs are clear. Heart size is normal. There is no pulmonary vascular congestion. Mediastinum and bony thorax appear unremarkable. There is a right-sided chest port in place unchanged. IMPRESSION: 1. No acute finding, no change.
--- NOTE | 2024-10-24 15:53 | NUR ---
PT JUST NOW PLACED IN THE COMPUTER TO MY ED BED 10. PT HAS NOT ARRIVED YET.
--- NOTE | 2024-10-24 15:57 | NUR ---
PT JUST NOW BEING PLACED IN/ON MY ED BED 10. ASSUME CARE AT THIS TIME.
--- NOTE | 2024-10-24 16:18 | ERN ---
ED Note History of Present Illness Stated Complaint: HEART RATE UNSTABLE Chief Complaint: Palpitations Dictation: 89-year-old female presents to the ED for evaluation general body weakness onset three days ago. Family reports fatigue, cold sweats, low O2 sats, low blood pressure and unstable heart rate at home . Family reports history of 2 heart stents and multiple myeloma currently in remission since 2019. Allergies: Coded Allergies: No Known Drug Allergies (Verified Allergy, Unknown, 11/27/14) Home Meds Reported Medications Pantoprazole Sodium (Pantoprazole Sodium) 40 Mg Tablet.dr, 1 TAB PO DAILY for 30 Days, #30 TAB 0 Refills 07/30/24 Dexamethasone (Dexamethasone) 4 Mg Tablet, 10 TAB PO QWEEK for 30 Days, #40 TAB 0 Refills Take 2 tablets 3 times a day for 2 days, then 1 tablet 3 times a day for 2 days, then 1 tablet twice daily for 2 days, then 1 07/30/24 Pregabalin (Pregabalin) 50 Mg Capsule, 1 CAP PO BID MDD 2 Capsule(s) for 30 Days, #60 CAP 0 Refills 07/30/24 Furosemide (Furosemide) 20 Mg Tablet, 1 TAB PO DAILY for 30 Days, #30 TAB 0 Refills 07/30/24 Isosorbide Mononitrate (Isosorbide Mononitrate ER) 60 Mg Tab.er.24h, 1 TAB PO DAILY for 30 Days, #30 TAB 0 Refills 07/30/24 Amlodipine Besylate (Amlodipine Besylate) 2.5 Mg Tablet, 1 TAB PO DAILY for 30 Days, #30 TAB 0 Refills 07/30/24 Potassium Chloride (Potassium Chloride) 20 Meq Tab.er.prt, 1 TAB PO DAILY for 30 Days, #30 TAB 0 Refills 07/30/24 Sertraline HCl (Sertraline HCl) 100 Mg Tablet, 1 TAB PO DAILY for 30 Days, #30 TAB 0 Refills 07/30/24 Lenalidomide (Revlimid) 10 Mg Capsule, 1 CAP PO AD 07/30/24 Rosuvastatin Calcium (Rosuvastatin Calcium) 10 Mg Tablet, 10 MG PO DAILYDINNER, TAB 07/15/23 Folic Acid (Folvite) 1 Mg Tab, 1 MG PO DAILY, TAB 03/17/22 Acyclovir (Acyclovir) 400 Mg Tablet, 400 MG PO BID, TAB 03/17/22 Ranolazine (RANEXA) 500 Mg Tab.er.12h, 500 MG PO BID, TAB 03/17/22 Past Medical History Past Medical History: Cancer, High Cholesterol, Heart Disease, Hypertension Additional Past Medical Hx: CHRONIC BACK PAIN Surgical History: Hysterectomy, Cholecystectomy, Other Surgical History Other: HEART STENTS Social History: Negative Review of System Dictation Constitutional: Positive for weakness and fatigue Negative for fever,chills, and weight loss Eyes: Negative for injury, pain,redness, and discharge ENT: Negative for injury,pain or swelling Cardiovascular: Negative for chest pain, palpitations, and edema Respiratory: Negative for shortness of breath, cough, and wheezing, Abdomen/GI: Negative for abdominal pain, nausea, vomiting, diarrhea, and constipation Back: Negative for injury and pain : Negative for injury, bleeding and discharge MS/Extremity: Negative for injury and deformity Skin: Negative for rash, and discoloration Neuro: Negative for headache, weakness, numbness, tingling, and seizure Psych: Negative for suicide ideation, homicidal ideation, and hallucinations Initial Vital Sign VS Vital Signs Date Time Temp Pulse Resp B/P (MAP) Pulse Ox O2 Delivery O2 Flow Rate FiO2 10/24/24 14:14 84 20 100/64 93 Room Air 0 10/24/24 17:59 21 Physical Exam Dictation General: awake, alert, chronically ill Head/Face: Normocephalic, atraumatic Eyes: PERRL, EOMI, vision at baseline ENT: oral cavity clear, TMs clear, no signs of infection Neck: Trachea midline, supple, no nuchal rigidity Cardiovascular: RRR, normal S1/S2, No MRGs, no JVD Respiratory: CTAB, no respiratory distress, No rales or wheezes Abdomen: Soft, non-tender, non-distended, normal bowel sounds, no guarding or rebound. Skin: Warm, dry, normal turgor, no rash MS/Extremity: Pulses equal, no cyanosis, neurovascular intact, FROM Neuro: COAx4, GCS 15, strength 5/5, CN 2-12 intact, normal cerebellar exam, normal gait, Psych: Normal behavior, mood, and affect normal Results (Laboratory/Radiology) Laboratory/Radiology Laboratory Tests Test 10/24/24 14:24 10/24/24 14:30 10/24/24 14:42 2/18/25 16:12 White Blood Count 27.8 K/uL (4.8-10.8) H Red Blood Count 3.42 MIL/uL (4.00-5.50) L Hemoglobin 10.8 g/dL (12.0-16.0) L Hematocrit 33.6 % (36-48) L Mean Corpuscular Volume 98.2 fL (79-99) Mean Corpuscular Hemoglobin 31.6 pg (27.0-33.0) Mean Corpuscular Hemoglobin Concent 32.1 g/dL (32.0-36.0) Red Cell Distribution Width 17.2 % (11.0-15.5) H Platelet Count 54 K/uL (130-400) L Mean Platelet Volume fL (7.5-10.5) Immature Granulocyte % (Auto) 3.3 % (0-1) H Neutrophils (%) (Auto) 76.3 % (40.0-77.0) Lymphocytes (%) (Auto) 2.9 % (21.0-51.0) L Monocytes (%) (Auto) 17.2 % (3.0-13.0) H Eosinophils (%) (Auto) 0.0 % (0.0-8.0) Basophils (%) (Auto) 0.3 % (0.0-5.0) Neutrophils # (Auto) 21.2 K/uL (1.8-7.7) H Lymphocytes # (Auto) 0.8 K/uL (1.0-4.8) L Monocytes # (Auto) 4.8 K/uL (0.1-1.0) H Eosinophils # (Auto) 0.01 K/uL (0.00-0.70) Basophils # (Auto) 0.09 K/uL (0.00-0.20) Absolute Immature Granulocyte (auto 0.91 K/uL (0-1) Nucleated Red Blood Cells 0.1 % (0.0-0.19) White Cell Morphology Comment See comments Platelet Morphology Comment DECREASED Sodium Level 138 mmol/L (136-145) Potassium Level 3.8 mmol/L (3.5-5.1) Chloride Level 102 mmol/L (101-111) Carbon Dioxide Level 30 mmol/L (21-32) Blood Urea Nitrogen 13 mg/dL (7-18) Creatinine 0.8 mg/dL (0.5-1.0) Glomerular Filtration Rate Calc 70 mL/min (>90) Random Glucose 213 mg/dL (70-105) H Total Calcium 8.4 mg/dL (8.5-10.1) L Total Creatine Kinase 35 U/L (21-232) # B-Type Natriuretic Peptide 1190 pg/mL (0-100) H Urine Color YELLOW (YELLOW) Urine Appearance CLEAR (CLEAR) Urine pH 5.0 (5.0-8.0) Urine Specific Dunlevy 1.009 (1.001-1.031) Urine Protein NEGATIVE mg/dL (NEGATIVE) Urine Glucose (UA) 500 mg/dL (NEGATIVE) H Urine Ketones NEGATIVE mg/dL (NEGATIVE) Urine Occult Blood MODERATE (NEGATIVE) H Urine Nitrate 1+ (NEGATIVE) H Urine Bilirubin NEGATIVE mg/dL (NEGATIVE) Urine Urobilinogen 0.2 mg/dL (0.2-1.0) Urine Leukocyte Esterase 75 Lino/uL (NEGATIVE) H Urine RBC 2-5 /HPF (0-1) H Urine WBC 26-50 /HPF (0-1) H Urine WBC Clumps (Auto) RARE /HPF (0-1) Urine Squamous Epithelial Cells RARE /HPF (0-2) Urine Bacteria RARE /HPF (None Seen) Urine Hyaline Casts 2-5 /LPF (0-1 /LPF) H Troponin I 0.11 ng/mL (0.00-0.05) H Influenza Type A Antigen Negative For Type A Influenza Type B Antigen Negative For Type B SARS-CoV-2 Antigen (Rapid) PRESUMPTIVE NEGATIVE Test 10/24/24 16:25 Lactic Acid Level 2.9 mmol/L (0.8-2.5) H Total Bilirubin 1.4 mg/dL (0.2-1.0) H Direct Bilirubin 0.4 mg/dL (0.0-0.3) H Aspartate Amino Transf (AST/SGOT) 17 U/L (10-37) Alanine Aminotransferase (ALT/SGPT) 20 U/L (12-78) Alkaline Phosphatase 99 U/L (50-136) Total Creatine Kinase 35 U/L (21-232) Total Protein 5.6 g/dL (6.0-8.3) L Albumin 2.8 g/dL (3.5-5.0) L Labs Reviewed?: Yes EKG Comment: EKG 10/24/2024 time 2:00 p.m. ventricular rate 81, HI 168, QRS D 88, QT 435. Sinus rhythm, probable anteroseptal infarct, recent. Abnormal T, consider ischemia, lateral leads. Prolonged QT interval. No STEMI X-RAY Comment: REASON: CHEST PAIN ORDERING PHYSICIAN: NEELAM RAY MD PROCEDURE: CXR1VW - CHEST 1VW CHEST 1VW REASON: CHEST PAIN COMPARISON: 07/31/2024 FINDINGS: Single view of the chest was obtained. Lungs are clear. Heart size is normal. There is no pulmonary vascular congestion. Mediastinum and bony thorax appear unremarkable. There is a right-sided chest port in place unchanged. IMPRESSION: 1. No acute finding, no change. DICTATED BY: MARY OLIVEIRA MD DATE: 10/24/241534 ED Course ED Course Orders Procedure Category Date Status Time Vital Signs Per CPOE 10/24/24 Transmitted Routine 13:55 B-Type Natriuretic LAB 10/24/24 Complete Peptide 13:55 Chest 1vw RAD 10/24/24 Resulted 13:55 12 Lead Ekg Tracing- EKG 10/24/24 Complete Technical 13:55 Oxygen By Nc/Pulse Ox CPOE 10/24/24 Transmitted 13:55 Maintain Iv CPOE 10/24/24 Transmitted 13:55 Iv Insertion CPOE 10/24/24 Transmitted 13:55 Cardiac Monitoring CPOE 10/24/24 Transmitted 13:55 Pulse Oximetry With CPOE 10/24/24 Transmitted Vs And Prn 13:55 Cbc With Differential LAB 10/24/24 Complete 13:55 Activity: Br W/Brp CPOE 10/24/24 Transmitted With Assist 13:55 Creatine Kinase, Total LAB 10/24/24 Complete 13:55 Urinalysis Profile LAB 10/24/24 Complete 13:55 Troponin Poc Order LAB 10/24/24 Complete Only 13:55 Bedside Troponin-I LAB.ER 10/24/24 In Process (Poc) 13:55 Basic Metabolic Panel LAB 10/24/24 Complete 13:55 Culture Urine JEANETTE 10/24/24 In Process 14:45 Influenza Type A & B, LAB 10/24/24 Complete Rapid 16:13 Creatine Kinase, Total LAB 10/24/24 Complete 16:13 Hepatic Function Panel LAB 10/24/24 Complete 16:13 Blood Cult JEANETTE 10/24/24 In Process 16:13 Lactic Acid LAB 10/24/24 Complete 16:13 Covid19 (Sars Antigen LAB 10/24/24 Complete Rapid) 16:13 Zosyn 3.375gm+Ns 50ml PHA 10/24/24 Complete (Zosyn 3.375gm+Ns 16:30 0.9%Nacl 1000ml (Ns PHA 10/24/24 Complete 1000ml) 16:30 Current Medications Medications (Trade) Dose Ordered Sig/Katerina Route PRN Reason Start Time Stop Time Status Last Admin Dose Admin Piperacillin Sod/ Tazobactam Sod (Zosyn 3.375gm+NS 50ml) 3.375 gm ONCE ONCE IV 10/24/24 16:30 10/24/24 16:31 DC 10/24/24 17:21 Sodium Chloride 1,000 ml @ 0 mls/hr ONCE ONCE IV 10/24/24 16:30 10/24/24 16:31 DC 10/24/24 17:21 Vital Signs Date Time Temp Pulse Resp B/P (MAP) Pulse Ox O2 Delivery O2 Flow Rate FiO2 10/24/24 17:59 69 22 108/60 95 Room Air* 0 21 10/24/24 14:14 84 20 100/64 93 Room Air 0 Medical Decision Making MDM MDM: Differential diagnosis: Weakness, electrolyte imbalance, sepsis, UTI 1803- [facility] consult, accepts patient for admission Rationale: Tests considered and ordered secondary to shared decision making include: labs, ECG and radiology Risk of complication and/or morbidity or mortality of patient management: None Medications-Per medication reconciliation Need for hospitalization: Patient does meet criteria for hospitalization. Need for emergency major/minor surgery: No There are no social concerns with this patient. I independently interpreted the test that were performed, results were reviewed by me and considered findings on radiology if ordered. Medical management and examination interpretation discussions were had by me with other qualified healthcare professionals as indicated for the patient's care. I attest that I performed a sepsis focused exam including review of vital signs, cardiopulmonary exam, capillary refill evaluation, peripheral pulse evaluation and Skin exam. Critical Care Note Critical Time: other (Total critical care time was 33 minutes. Excluding time for procedures. Management of critically ill patient with concern for acute decompensation. Management included interpretation of laboratory values and imaging, hemodynamics, time for consultation with consultants and admitting physician.) DX & DISP Disposition: Inpatient Decision to Admit Date: Oct 24, 2024 Decision to Admit Time: 18:04 Departure Impression: Primary Impression: UTI (urinary tract infection) Additional Impression: Sepsis Condition: Stable Referrals: ISAAK THOMAS MD (PCP) NEELAM RAY MD Oct 24, 2024 16:18
[2024-10-24 16:43] LABS: COVID19 (SARS ANTIGEN RAPID) PRESUMPTIVE NEGATIVE (NEGATIVE); INFLUENZA TYPE A Negative For Type A (NEGATIVE); INFLUENZA TYPE B Negative For Type B (NEGATIVE)
[2024-10-24 17:08] LABS: BILIRUBIN,DIRECT 0.4 mg/dL (0.0-0.3); BILIRUBIN,TOTAL 1.4 mg/dL (0.2-1.0)
[2024-10-24 17:09] LABS: ALBUMIN 2.8 g/dL (3.5-5.0); TOTAL PROTEIN, SERUM 5.6 g/dL (6.0-8.3)
[2024-10-24] MEDS: 0.9%NACL 1000ML 1,000 ML IV ONE (17:21)
[2024-10-24] MEDS: ZOSYN 3.375GM +NS 50ML IV ONE (17:21)
--- NOTE | 2024-10-24 19:09 | NUR ---
REPORT ENDORSED TO BIANCA ROBISON PENDING OFFICIAL ADMIT ORDERS
--- NOTE | 2024-10-24 19:31 | HP ---
[facility] HISTORY & PHYSICAL Date Patient Seen: Oct 24, 2024 Time of Visit: 19:30 Supervising Physician: Dr Davis Primary Care Physician: Dr Davis Outpatient Specialists: Dr Traylor, Dr Winchester Inpatient Consults: [ ] PROBLEM LIST: Severe sepsis, POA Urinary tract infection, POA Hypertension, POA Hyperlipidemia, POA History of multiple myeloma, status post chemotherapy, on remission since 2019 History of CAD, status post cardiac catheterization status post two stents placement PLAN: Admit to medical-surgical floor with telemetry VS per unit protocol Heart healthy diet Aspiration precautions Continue antibiotics Treat fever aggressively Monitor temperature curve PT/OT eval and treat Keep SBP less than 160 P.r.n. hydralazine labetalol Gentle hydration with IV fluids Bilateral SCDs CBC, CMP, magnesium level daily HPI: 89-year-old female with past medical history of multiple myeloma currently on remission, hypertension, hyperlipidemia, CAD s/p stent placement who presented to ED via private vehicle with complaint of generalized body weakness, and low blood pressure at home and found to have severe sepsis, and urinary tract infection. Patient was seen and examined in ED with son present at bedside. According to him patient was brought in by her sister due to concern of generalized body weakness and persistently borderline blood pressure. His sister called her PCP and was advised to bring patient to ED for further medical evaluation. In ED chest x-ray was done and showed no acute intrapulmonary process, however her CBC is notable for WBC [place] more [place] [address], hemoglobin of 10.8, and hematocrit of 33.8. Her chemistry is significant for lactic acid of 2.9 (now 1.3), troponin level of 0.11, and BNP of more than 1000. Her flu and COVID tests were negative, however her UA is consistent with urinary tract infection. In ED patient was given1 L of NS, and was initiated on IV Zosyn. At present patient is currently hemodynamically stable, on room air with appropriate oxygen saturation, normal sinus rhythm on the monitor, with systolic above 100 mmHg. Patient denies any headache, chest pain, shortness of breath, abdominal pain, fever, cough, or flu-like symptoms. Patient does not take COVID vaccine, but her flu shot is up-to-date. Patient denies any smoking, alcohol intake, illicit drug use. PAST MEDICAL HX: see above PAST SURGICAL HX: noncontributory SOCIAL HISTORY: No tobacco, ETOH, or illicit drug use Coded Allergies: No Known Drug Allergies (Verified Allergy, Unknown, 11/27/14) REVIEW OF SYSTEMS: 12 point ROS reviewed with patient. Pertinent positives mentioned above. Otherwise negative. PHYSICAL EXAM: GENERAL: alert, weak, awake oriented x 3 HEENT: EOMI, Sclera non icteric, moist mucosa NECK: Supple, no JVD, trachea midline LUNGS: Clear breath sounds bilaterally. No wheezes HEART: Regular rate and rhythm. Normal S1 and S2, without murmurs ABD: Abdomen soft, nontender. Bowel sounds present EXT: No clubbing cyanosis or edema NEURO: Alert and oriented to person, follows commands Vital Signs (last 8hr) Date Time Temp Pulse Resp B/P (MAP) Pulse Ox O2 Delivery O2 Flow Rate FiO2 10/24/24 17:59 69 22 108/60 95 Room Air* 0 21 10/24/24 14:14 84 20 100/64 93 Room Air 0 LABS: Hematology Labs: Test 10/24/24 14:24 Range/Units White Blood Count 27.8 H 4.8-10.8 K/uL Red Blood Count 3.42 L 4.00-5.50 MIL/uL Hemoglobin 10.8 L 12.0-16.0 g/dL Hematocrit 33.6 L 36-48 % Mean Corpuscular Volume 98.2 79-99 fL Mean Corpuscular Hemoglobin 31.6 27.0-33.0 pg Mean Corpuscular Hemoglobin Concent 32.1 32.0-36.0 g/dL Red Cell Distribution Width 17.2 H 11.0-15.5 % Platelet Count 54 L 130-400 K/uL Mean Platelet Volume 7.5-10.5 fL Immature Granulocyte % (Auto) 3.3 H 0-1 % Neutrophils (%) (Auto) 76.3 40.0-77.0 % Lymphocytes (%) (Auto) 2.9 L 21.0-51.0 % Monocytes (%) (Auto) 17.2 H 3.0-13.0 % Eosinophils (%) (Auto) 0.0 0.0-8.0 % Basophils (%) (Auto) 0.3 0.0-5.0 % Neutrophils # (Auto) 21.2 H 1.8-7.7 K/uL Lymphocytes # (Auto) 0.8 L 1.0-4.8 K/uL Monocytes # (Auto) 4.8 H 0.1-1.0 K/uL Eosinophils # (Auto) 0.01 0.00-0.70 K/uL Basophils # (Auto) 0.09 0.00-0.20 K/uL Absolute Immature Granulocyte (auto 0.91 0-1 K/uL Nucleated Red Blood Cells 0.1 0.0-0.19 % White Cell Morphology Comment See comments Platelet Morphology Comment DECREASED Chemistry Labs: Test 10/24/24 16:25 10/24/24 14:42 10/24/24 14:24 Range/Units Lactic Acid Level 2.9 H 0.8-2.5 mmol/L Total Bilirubin 1.4 H 0.2-1.0 mg/dL Direct Bilirubin 0.4 H 0.0-0.3 mg/dL Aspartate Amino Transf (AST/SGOT) 17 10-37 U/L Alanine Aminotransferase (ALT/SGPT) 20 12-78 U/L Alkaline Phosphatase 99 50-136 U/L Total Creatine Kinase 35 21-232 U/L Total Protein 5.6 L 6.0-8.3 g/dL Albumin 2.8 L 3.5-5.0 g/dL Troponin I 0.11 H 0.00-0.05 ng/mL Sodium Level 138 136-145 mmol/L Potassium Level 3.8 3.5-5.1 mmol/L Chloride Level 102 101-111 mmol/L Carbon Dioxide Level 30 21-32 mmol/L Blood Urea Nitrogen 13 7-18 mg/dL Creatinine 0.8 0.5-1.0 mg/dL Glomerular Filtration Rate Calc 70 >90 mL/min Random Glucose 213 H 70-105 mg/dL Total Calcium 8.4 L 8.5-10.1 mg/dL B-Type Natriuretic Peptide 1190 H 0-100 pg/mL DIAGNOSTICS / RADIOLOGY RESULTS: CHEST 1VW REASON: CHEST PAIN COMPARISON: 07/31/2024 FINDINGS: Single view of the chest was obtained. Lungs are clear. Heart size is normal. There is no pulmonary vascular congestion. Mediastinum and bony thorax appear unremarkable. There is a right-sided chest port in place unchanged. IMPRESSION: 1. No acute finding, no change. PLAN NEURO: Minimize central acting medications as possible. Maintain fall precautions, adequate lighting during the day PULMONARY: Supplemental 02 as needed. Maintain aspiration precautions at all times CARDIOVASCULAR: Follow hemodynamics. Vital signs per facility protocol GI & NUTRITION: Continue with nutritional support. Continue stool softeners and laxatives as needed. KIDNEYS & ELECTROLYTES: Strict monitoring of intake, output and overall fluid balance. Avoid nephrotoxic medications to the extent possible. Medications to be dosed according to renal function. Monitor electrolytes and replace as needed ENDOCRINE: Maintain blood glucose between 100-180 at all times. Hypoglycemia protocol in place INFECTIOUS DISEASE: Trend temperature, WBC and procalcitonin level Follow cultures, deescalate antibiotics as soon as possible. Panculture if new onset fever ONCOLOGY/HEMATOLOGY/COAGULATION: Monitor for s/s of bleeding Monitor hemoglobin, coagulation studies as needed SKIN: Pressure ulcer prevention per facility protocol Specialty mattress ORTHO/REHAB: Continue PT/OT Prophylaxis: Continue GI and DVT prophylaxis Code Status: Full Resuscitation Disposition: TBD Other: Total patient care time exceeds 35 minutes excluding all procedures. Supervising physician: JOHNY Hurd HEEL DIPPER Oct 24, 2024 19:31
[2024-10-24] MEDS ORDERED: acetaMINOPHEN 650 MG SUPPOSITORY RC PRN (21:00)
[2024-10-24] MEDS ORDERED: ondanSETRON 4MG INJ IVP PRN (21:00)
[2024-10-24] MEDS ORDERED: ALBUTEROL 0.083% 2.5 MG/3 ML INH IH PRN (21:00)
[2024-10-24] MEDS ORDERED: HYDROcodone/APAP 5/325 1 TAB TABLET PO PRN (21:30)
[2024-10-24] MEDS: cefTRIAXone 1G VIAL IVPB SCH (22:49)
[2024-10-24] MEDS: FAMOTIDINE 20MG TAB PO SCH (22:49)
[2024-10-24 23:39] VITALS: PULSE 81; RESP 16; O2SAT 93
[2024-10-24] MEDS: HYDROcodone/APAP 5/325 1 TAB TABLET PO PRN (23:40)
--- NOTE | 2024-10-25 01:19 | NUR ---
PATIENT NOTED WITH LOW GRADE FEVER AND ELEVATED PULSE RATE 118 BPM, RAPID AND SHALLOW RESPIRATIONS 35 BREATHS PER MIN, AND LOW OXYGEN SATURATION 88% ON ROOM AIR. PATIENT PLACED ON 2L/NC, O2 SATS INCREASED TO 96%. ICE PACKS PLACED ON BACK OF NECK AND UNDER EACH AXILLA. ADVISED SON AT BEDSIDE THAT I WILL CONTINUE TO MONITOR HER VITALS. PATIENT IS PENDING URINE CULTURE RESULTS AND BLOOD CULTURE RESULTS.
--- NOTE | 2024-10-25 01:46 | NUR ---
CALL PLACED TO [facility]. SPOKE WITH JOHNY LEE TRANSMISSION MAINTENANCE SUPERVISOR ABOUT THE PATIENT'S CHANGE IN VITAL SIGNS. PER NONOG CONTINUE TO TREAT FEVER. NO NEW ORDERS GIVEN.
[2024-10-25] MEDS: acetaMINOPHEN 325 MG TAB PO PRN (01:55)
[2024-10-25 02:55] VITALS: TEMP 99.6
[2024-10-25 06:52] LABS: BASOPHILS # (AUTO) 0.13 K/uL (0.00-0.20); BASOPHILS % (AUTO) 0.4 % (0.0-5.0); EOSINOPHILS # (AUTO) 0.01 K/uL (0.00-0.70); HEMATOCRIT 30.9 % (36-48); IMMATURE GRANULOCYTE ABSOLUTE 1.29 K/uL (0-1); LYMPHOCYTES # (AUTO) 1.8 K/uL (1.0-4.8); MEAN CORPUSCULAR HEMOGLOBIN 31.3 pg (27.0-33.0); MEAN CORPUSCULAR HGB CONC 31.4 g/dL (32.0-36.0); MEAN CORPUSCULAR VOLUME 99.7 fL (79-99); MONOCYTES # (AUTO) 3.7 K/uL (0.1-1.0); MONOCYTES % (AUTO) 10.2 % (3.0-13.0); NEUTROPHILS # (AUTO) 29.2 K/uL (1.8-7.7); NEUTROPHILS % (AUTO) 80.8 % (40.0-77.0); RED CELL DISTRIBUTION WIDTH 17.3 % (11.0-15.5)
[2024-10-25 07:06] LABS: CREATININE 0.9 mg/dL (0.5-1.0); MAGNESIUM 1.4 mg/dL (1.80-2.40); PHOSPHORUS 3.5 mg/dL (2.5-4.9)
[2024-10-25 07:08] LABS: PLATELET COUNT (AUTO) 32 K/uL (130-400); POTASSIUM 2.8 mmol/L (3.5-5.1); WHITE BLOOD COUNT (AUTO) 36.1 K/uL (4.8-10.8)
[2024-10-25] MEDS ORDERED: VANCOMYCIN PROTOCOL PER PHARMACY IV SCH (07:30)
[2024-10-25 07:54] LABS: BAND NEUTROPHILS % (MANUAL) 20 % (0-2); LYMPHOCYTES % (MANUAL) 5 % (22-44); MAN.DIFF COMMENT-IMPRESSION MANUAL DIFFERENTIAL; MONOCYTES % (MANUAL) 9 % (2-9); SEGMENTED NEUTROPHILS % 66 % (40-70); TOTAL CELLS COUNTED 100
[2024-10-25 07:55] LABS: PLATELET MORPHOLOGY COMMENT MARKED DECREASE
[2024-10-25] MEDS ORDERED: PoTASSium chloRIDE 20MEQ/100ML 100 ML IV PRN (08:00)
[2024-10-25 08:05] VITALS: PULSE 80; RESP 20; O2SAT 100
[2024-10-25 08:08] LABS: ABG BASE EXCESS -1.4 mmol/L (-2.0-3.0); ABG HCO3 21.7 mmol/L (21.0-28.0); ABG PCO2 31 mmHg (32-45); ABG PH 7.465 (7.350-7.450); CARBON MONOXIDE 1.2 % (0.5-1.5); PO2, ARTERIAL BG 98.4 mmHg (83.0-108.0); VENT MODE, BG NC (ROOM AIR)
[2024-10-25] MEDS: SODIUM CHLORIDE 3% FOR INHALATION 4 ML/AMP VIAL.NEB IH ONE ×3 (08:44→14:12)
[2024-10-25] MEDS ORDERED: ENOXAPARIN SODIUM 40 MG/0.4 ML SYRINGE SQ SCH (09:00)
[2024-10-25] MEDS: ASCORBIC ACID 500 MG TAB PO SCH (09:08)
[2024-10-25] MEDS: metRONIDazole 500MG/100ML BAG 100 ML IVPB SCH (09:08)
[2024-10-25] MEDS: VANCOMYCIN 1.5 GM/250 ML BAG 250 ML IV ONE (09:08)
[2024-10-25] MEDS: LACTATED RINGERS IV ONE (09:08)
[2024-10-25] MEDS: DOXYCYCLINE HYCLATE 100 MG TABLET PO SCH (09:08)
[2024-10-25] MEDS: ceFEPime HCL 2 GM VIAL IVPB SCH (09:08)
[2024-10-25] MEDS: polyETHYLene GLYCol 3350 17 GM POWD.PACK PO SCH (09:08)
--- NOTE | 2024-10-25 11:44 | NUR ---
DCP: HOME Sw met with pt and Huang [phone]. reports he and daughter Kirsten Baeza [phone] assist pt with ADLs, home management meal prep and transportation. Pt uses a w/c and shower, no HH or HD services. PCP is Bernard Davis and uses [facility]. states he will take pt home at ne Addendum: 10/25/24 at 1151 by SHALA CHINCHILLA SS Amended: Links added.
--- NOTE | 2024-10-25 13:38 | PN ---
[facility] PROGRESS NOTE Date Patient Seen: Oct 25, 2024 Time of Visit: 13:38 Supervising Physician: Dr. Joshua Marin Primary Care Physician: Dr Davis Outpatient Specialists: Dr Traylor, Dr Winchester Inpatient Consults: [ ] PROBLEM LIST: Severe sepsis, POA Urinary tract infection, POA Hypertension, POA Hyperlipidemia, POA History of multiple myeloma, status post chemotherapy, on remission since 2019 History of CAD, status post cardiac catheterization status post two stents placement PLAN: Admit to medical-surgical floor with telemetry VS per unit protocol Heart healthy diet Aspiration precautions Continue antibiotics Treat fever aggressively Monitor temperature curve PT/OT eval and treat Keep SBP less than 160 P.r.n. hydralazine labetalol Gentle hydration with IV fluids Bilateral SCDs CBC, CMP, magnesium level daily INTERVAL HISTORY: Patient was evaluated at bedside in the ED with her daughter present. Prior to evaluation patient had reach sepsis criteria, was started on 30 mL/kilogram fl uid hydration. Patient's white count continues to climb at this time, she is currently on vancomycin ceftriaxone and metronidazole. Discontinuing doxycycline today. Patient's blood pressure at the time of evaluation is 107/80, respiratory rate is 21, heart rate is at 72. Patient has one of two blood cultures positive for Gram-positive bacilli, likely contaminant, pending further culture results. She is currently on 2 L nasal cannula, her only complaint of pain at this time is of the right lower quadrant. Pending CT abdomen. Patient's lactic acid today was 2.6, we will repeat lab studies today as well as in the morning and continue to monitor. Patient's prognosis is guarded, possible ICU admission however at this time she is scheduled for med floor. REVIEW OF SYSTEMS: 12 point ROS reviewed with patient. Pertinent positives mentioned above. Otherwise negative. PHYSICAL EXAM: GENERAL: alert, weak, awake oriented x 3 HEENT: EOMI, Sclera non icteric, moist mucosa NECK: Supple, no JVD, trachea midline LUNGS: Clear breath sounds bilaterally. No wheezes HEART: Regular rate and rhythm. Normal S1 and S2, without murmurs ABD: Abdomen soft, nontender. Bowel sounds present EXT: No clubbing cyanosis or edema NEURO: Alert and oriented to person, follows commands Vital Signs (last 8hr) Date Time Temp Pulse Resp B/P (MAP) Pulse Ox O2 Delivery O2 Flow Rate FiO2 2/19/25 11:18 97.9 74 20 111/59 95 Nasal Cannula* 0 21 10/25/24 08:05 80 20 N/Cannula Low lpm 2.0 10/25/24 07:58 98.1 107 20 90/51 99 Nasal Cannula* 2 28 LABS: Hematology Labs: Test 10/25/24 06:30 Range/Units White Blood Count 36.1 #*H 4.8-10.8 K/uL Red Blood Count 3.10 L 4.00-5.50 MIL/uL Hemoglobin 9.7 L 12.0-16.0 g/dL Hematocrit 30.9 L 36-48 % Mean Corpuscular Volume 99.7 H 79-99 fL Mean Corpuscular Hemoglobin 31.3 27.0-33.0 pg Mean Corpuscular Hemoglobin Concent 31.4 L 32.0-36.0 g/dL Red Cell Distribution Width 17.3 H 11.0-15.5 % Platelet Count 32 #L 130-400 K/uL Mean Platelet Volume 7.5-10.5 fL Immature Granulocyte % (Auto) 3.6 H 0-1 % Neutrophils (%) (Auto) 80.8 H 40.0-77.0 % Lymphocytes (%) (Auto) 5.0 L 21.0-51.0 % Monocytes (%) (Auto) 10.2 3.0-13.0 % Eosinophils (%) (Auto) 0.0 0.0-8.0 % Basophils (%) (Auto) 0.4 0.0-5.0 % Neutrophils # (Auto) 29.2 H 1.8-7.7 K/uL Lymphocytes # (Auto) 1.8 1.0-4.8 K/uL Monocytes # (Auto) 3.7 H 0.1-1.0 K/uL Eosinophils # (Auto) 0.01 0.00-0.70 K/uL Basophils # (Auto) 0.13 0.00-0.20 K/uL Absolute Immature Granulocyte (auto 1.29 H 0-1 K/uL Segmented Neutrophils % 66 40-70 % Band Neutrophils % 20 H 0-2 % Lymphocytes % (Manual) 5 L 22-44 % Monocytes % (Manual) 9 2-9 % Nucleated Red Blood Cells 0.0 0.0-0.19 % Differential Comment MANUAL DIFFERENTIAL White Cell Morphology Comment Platelet Morphology Comment MARKED DECREASE Red Blood Cell Morphology ANISO 1+ Chemistry Labs: Test 10/25/24 11:38 10/25/24 07:37 10/25/24 06:30 10/24/24 16:25 Range/Units Lactic Acid Level 1.6 0.8-2.5 mmol/L Procalcitonin 63.13 H 0.05-0.5 ng/mL Sodium Level 142 136-145 mmol/L Potassium Level 2.8 *L 3.5-5.1 mmol/L Chloride Level 105 101-111 mmol/L Carbon Dioxide Level 26 21-32 mmol/L Blood Urea Nitrogen 16 7-18 mg/dL Creatinine 0.9 0.5-1.0 mg/dL Glomerular Filtration Rate Calc 61 >90 mL/min Random Glucose 197 H 70-105 mg/dL Total Calcium 7.7 L 8.5-10.1 mg/dL Phosphorus Level 3.5 2.5-4.9 mg/dL Magnesium Level 1.40 L 1.80-2.40 mg/dL Total Bilirubin 1.4 H 0.2-1.0 mg/dL Direct Bilirubin 0.4 H 0.0-0.3 mg/dL Aspartate Amino Transf (AST/SGOT) 17 10-37 U/L Alanine Aminotransferase (ALT/SGPT) 20 12-78 U/L Alkaline Phosphatase 99 50-136 U/L Total Creatine Kinase 35 21-232 U/L Total Protein 5.6 L 6.0-8.3 g/dL Albumin 2.8 L 3.5-5.0 g/dL Test 10/24/24 14:42 10/24/24 14:24 Range/Units Troponin I 0.11 H 0.00-0.05 ng/mL B-Type Natriuretic Peptide 1190 H 0-100 pg/mL DIAGNOSTICS / RADIOLOGY RESULTS: [ ] PLAN NEURO: Minimize central acting medications as possible. Maintain fall precautions, adequate lighting during the day PULMONARY: Supplemental 02 as needed. Maintain aspiration precautions at all times CARDIOVASCULAR: Follow hemodynamics. Vital signs per facility protocol GI & NUTRITION: Continue with nutritional support. Continue stool softeners and laxatives as needed. KIDNEYS & ELECTROLYTES: Strict monitoring of intake, output and overall fluid balance. Avoid nephrotoxic medications to the extent possible. Medications to be dosed according to renal function. Monitor electrolytes and replace as needed ENDOCRINE: Maintain blood glucose between 100-180 at all times. Hypoglycemia protocol in place INFECTIOUS DISEASE: Trend temperature, WBC and procalcitonin level Follow cultures, deescalate antibiotics as soon as possible. Panculture if new onset fever ONCOLOGY/HEMATOLOGY/COAGULATION: Monitor for s/s of bleeding Monitor hemoglobin, coagulation studies as needed SKIN: Pressure ulcer prevention per facility protocol Specialty mattress ORTHO/REHAB: Continue PT/OT Prophylaxis: Continue GI and DVT prophylaxis Code Status: Full Resuscitation Disposition: TBD Other: Total patient care time exceeds 35 minutes excluding all procedures. SCOTT HALL Oct 25, 2024 13:38
[2024-10-25] MEDS ORDERED: PHARMACY COMMUNICATION MISC SCH (14:30)
[2024-10-25] MEDS ORDERED: MEROPENEM 1GM 1 GM VIAL IVPB SCH (15:00)
[2024-10-25] MEDS: MEROPENEM 1GM 1 GM VIAL IVPB SCH (15:46)
[2024-10-25] MEDS: PoTASSium chloRIDE 20MEQ/100ML 100 ML IV PRN (15:50)
[2024-10-25] MEDS ORDERED: PRAV10TA39 PO (16:43)
[2024-10-25] MEDS ORDERED: SERT-440 PO (16:43)
[2024-10-25] MEDS ORDERED: APIX2.5T PO (16:43)
[2024-10-25] MEDS ORDERED: PANT40TA54 PO (16:43)
[2024-10-25] MEDS ORDERED: FURO20TA4 PO (16:43)
[2024-10-25] MEDS ORDERED: ISOS60TA77 PO (16:43)
[2024-10-25] MEDS ORDERED: AMLO2.5T4 PO (16:43)
[2024-10-25] MEDS ORDERED: DEXA4TAB PO (16:43)
[2024-10-25] MEDS ORDERED: PREG50CA64 PO (16:43)
[2024-10-25] MEDS ORDERED: ACYC400T20 PO (16:43)
[2024-10-25] MEDS ORDERED: POTA-202 PO (16:43)
--- NOTE | 2024-10-25 16:57 | CONS ---
CONSULT NOTE: HPI: 89-year-old female with past medical history of multiple myeloma currently on remission, hypertension, hyperlipidemia, CAD s/p stent placement who presented to ED via private vehicle with complaint of generalized body weakness, and low blood pressure at home and found to have severe sepsis, and urinary tract infection. Patient was seen and examined in ED with son present at bedside. According to him patient was brought in by her sister due to concern of generalized body weakness and persistently borderline blood pressure. History of multiple myeloma patient received chemotherapy treatment with Revlimid, dexamethasone and daratumumab. Patient went to complete remission. Patient receiving maintenance therapy treatment with Revlimid 10 mg p.o. daily Patient was found to have hypotension with the patient was feeling tired and fatigued. Patient was brought to the emergency department with the patient was found to have UTI. Patient was started on antibiotic treatment. Patient does not take COVID vaccine, but her flu shot is up-to-date. Patient denies any smoking, alcohol intake, illicit drug use. PAST MEDICAL HX: see above PAST SURGICAL HX: noncontributory SOCIAL HISTORY: No tobacco, ETOH, or illicit drug use Coded Allergies: No Known Drug Allergies (Verified Allergy, Unknown, 11/27/14) REVIEW OF SYSTEMS: 12 point ROS reviewed with patient. Pertinent positives mentioned above. Otherwise negative. PHYSICAL EXAM: GENERAL: alert, weak, awake oriented x 3 HEENT: EOMI, Sclera non icteric, moist mucosa NECK: Supple, no JVD, trachea midline LUNGS: Clear breath sounds bilaterally. No wheezes HEART: Regular rate and rhythm. Normal S1 and S2, without murmurs ABD: Abdomen soft, nontender. Bowel sounds present EXT: No clubbing cyanosis or edema NEURO: Alert and oriented to person, follows commands assessment History of multiple myeloma patient received chemotherapy treatment with Revlimid, dexamethasone and daratumumab. Patient went to complete remission. Patient receiving maintenance therapy treatment with Revlimid 10 mg p.o. daily Severe sepsis, POA Urinary tract infection, POA Hypertension, POA Hyperlipidemia, POA History of multiple myeloma, status post chemotherapy, on remission since 2019 History of CAD, status post cardiac catheterization status post two stents placement PLAN: 1. We will hold oral chemotherapy treatment with Revlimid while this patient in hospital 2. This patient in complete remission with her multiple myeloma. 3. Continue antibiotic treatment as per primary 4. No need for blood transfusion 5. Will follow-up with CBC daily. LAB RESULTS 10/25/24 11:38: Lactic Acid Level 1.6 10/25/24 08:06: Blood Gas Specimen Type Arterial, Arterial Blood pH 7.465H, Arterial Blood Partial Pressure CO2 31L, Arterial Blood Partial Pressure O2 98.4, Arterial Blood HCO3 21.7, Arterial Blood Oxygen Saturation 97.0, Arterial Blood Base Excess -1.4, Hemoglobin (Blood Gas) 10.3L, Sodium (Blood Gas) 134L, Bedside Potassium (Blood Gas) 3.1L, Bedside Chloride (Blood Gas) 103, Bedside Glucose (Blood Gas) 185H, Bedside Ionized Calcium (Blood Gas) 1.09L, Bedside Lactic Acid (Blood Gas) 1.85H, Blood Gas Temperature 37.0, Blood Gas Flow-by 2.00, Blood Gas Vent Mode NC, FiO2 28.0, Blood Gas Specimen Comment ABEL GONZALEZ 10/25/24 07:37: Procalcitonin 63.13H 10/25/24 06:30: White Blood Count 36.1#*H, Red Blood Count 3.10L, Hemoglobin 9.7L, Hematocrit 30.9L, Mean Corpuscular Volume 99.7H, Mean Corpuscular Hemoglobin 31.3, Mean Corpuscular Hemoglobin Concent 31.4L, Red Cell Distribution Width 17.3H, Platelet Count 32#L, Mean Platelet Volume , Immature Granulocyte % (Auto) 3.6H, Neutrophils (%) (Auto) 80.8H, Lymphocytes (%) (Auto) 5.0L, Monocytes (%) (Auto) 10.2, Eosinophils (%) (Auto) 0.0, Basophils (%) (Auto) 0.4, Neutrophils # (Auto) 29.2H, Lymphocytes # (Auto) 1.8, Monocytes # (Auto) 3.7H, Eosinophils # (Auto) 0.01, Basophils # (Auto) 0.13, Absolute Immature Granulocyte (auto 1.29H, Segmented Neutrophils % 66, Band Neutrophils % 20H, Lymphocytes % (Manual) 5L, Monocytes % (Manual) 9, Nucleated Red Blood Cells 0.0, Differential Comment MANUAL DIFFERENTIAL, White Cell Morphology Comment , Platelet Morphology Comment MARKED DECREASE, Red Blood Cell Morphology ANISO 1+, Sodium Level 142, Potassium Level 2.8*L, Chloride Level 105, Carbon Dioxide Level 26, Blood Urea Nitrogen 16, Creatinine 0.9, Glomerular Filtration Rate Calc 61, Random Glucose 197H, Total Calcium 7.7L, Phosphorus Level 3.5, Magnesium Level 1.40L 10/24/24 16:25: Total Bilirubin 1.4H, Direct Bilirubin 0.4H, Aspartate Amino Transf (AST/SGOT) 17, Alanine Aminotransferase (ALT/SGPT) 20, Alkaline Phosphatase 99, Total Creatine Kinase 35, Total Protein 5.6L, Albumin 2.8L 10/24/24 16:12: Influenza Type A Antigen Negative For Type A, Influenza Type B Antigen Negative For Type B, SARS-CoV-2 Antigen (Rapid) PRESUMPTIVE NEGATIVE 10/24/24 14:42: Troponin I 0.11H 10/24/24 14:30: Urine Color YELLOW, Urine Appearance CLEAR, Urine pH 5.0, Urine Specific [place] 1.009, Urine Protein NEGATIVE, Urine Glucose (UA) 500H, Urine Ketones NEGATIVE, Urine Occult Blood MODERATEH, Urine Nitrate 1+H, Urine Bilirubin NEGATIVE, Urine Urobilinogen 0.2, Urine Leukocyte Esterase 75H, Urine RBC 2-5H, Urine WBC 26- 50H, Urine WBC Clumps (Auto) RARE, Urine Squamous Epithelial Cells RARE, Urine Bacteria RARE, Urine Hyaline Casts 2-5H 10/24/24 14:24: B-Type Natriuretic Peptide 1190H MEGGAN DAHL MD Oct 25, 2024 16:57
[2024-10-25 18:35] LABS: MEAN CORPUSCULAR HEMOGLOBIN 31.3 pg (27.0-33.0); NUCLEATED RED BLOOD CELLS 0.1 % (0.0-0.19); PLATELET COUNT (AUTO) 38 K/uL (130-400); RED BLOOD CELL COUNT(AUTO) 2.97 MIL/uL (4.00-5.50); RED CELL DISTRIBUTION WIDTH 17.3 % (11.0-15.5); WHITE BLOOD COUNT (AUTO) 24.6 K/uL (4.8-10.8)
--- NOTE | 2024-10-25 18:35 | HMCIMG ---
CT ABDOMEN WITHOUT CONTRAST. CT PELVIS WITHOUT CONTRAST. INDICATION: Right lower abdominal pain TECHNIQUE: Routine transaxial imaging using 5 mm slice thickness through the abdomen and pelvis without the administration of IV contrast. Thin slice reconstructions are also provided. Coronal and sagittal reformatted images acquired for interpretation. CT was performed with one or more of the following dose reduction techniques: Automated exposure control, adjustment of the mA and/or kV according to patient size, or use of iterative reconstruction technique. COMPARISON: 07/30/2024 FINDINGS: ON NONCONTRAST IMAGING: ABDOMEN: Heart size is normal. Coronary arterial wall calcific plaque noted. Mild bilateral lower lobe pulmonary vascular congestion. Minimal bibasilar lung atelectasis. No abnormal right renal calcifications, hydronephrosis, perinephric inflammation, or proximal hydroureter detected. 2 mm nonobstructing calculus at the mid to upper portion of the left kidney. The liver is normal in size and smooth in contour without biliary duct dilation. The spleen is normal in size and attenuation. The gallbladder is absent. The pancreas appears normal without pancreatic duct dilation. The adrenal glands appear normal. No significant abdominal, retrocrural or retroperitoneal adenopathy noted. No evidence for intra-abdominal free air or organized fluid collection. Mild calcific plaque is noted along the abdominal aortic and iliac vessel garcia without aneurysmal dilation. PELVIS: No abnormal calcifications within the urinary bladder or distal ureters. No evidence for free air or organized pelvic fluid collection. No significant pelvic adenopathy detected. Several diverticula along the sigmoid colon. Terminal ileum appears unremarkable. Uterus is absent. The appendix appears normal. Chronic severe L1 vertebral body compression deformity, chronic moderate L2 vertebral body compression deformity, and chronic mild L3 vertebral body compression deformity. IMPRESSION: 1. 2 mm nonobstructing left renal stone. 2. Sigmoid diverticulosis without diverticulitis, enteritis, colitis, or appendicitis. 3. Mild bilateral lower lobe pulmonary vascular congestion and minimal bibasilar lung dependent atelectasis. 4. Arteriosclerotic disease as described.
[2024-10-25 18:43] LABS: CREATININE 0.8 mg/dL (0.5-1.0); POTASSIUM 3.1 mmol/L (3.5-5.1)
[2024-10-25 19:22] VITALS: PULSE 76; RESP 19; O2SAT 98
[2024-10-25 20:00] VITALS: O2SAT 93
[2024-10-25 22:36] VITALS: BP 110/60; PULSE 74; RESP 18; TEMP 97.5
--- NOTE | 2024-10-25 22:52 | CONS ---
INFECTIOUS DISEASE CONSULTATION REQUESTING PHYSICIAN: ELDA Juarez REASON FOR CONSULTATION: Sepsis and antibiotic management. HISTORY OF PRESENT ILLNESS: An 89-year-old female with history of multiple myeloma, hypertension, dyslipidemia, presented to hospital with generalized body weakness, fever and chills. The patient was found with low blood pressure at home, was brought to the Emergency Room by the family. In the Emergency Room, the patient was found to have WBC of 27,000. Procalcitonin was elevated at 63. T-max was 100.4. Urinalysis was positive. Urine and blood culture growing Gram-negative shanell. The patient has been started on cefepime. PAST MEDICAL HISTORY: * Multiple myeloma. * Hypertension. * Dyslipidemia. * Coronary artery disease. PAST SURGICAL HISTORY: * PCI. * Bone marrow biopsy. ALLERGIES: No known drug allergies. HOME MEDICATIONS: Include Revlimid. SOCIAL HISTORY: Lives with daughter. No alcohol, tobacco or illicit drug use. FAMILY HISTORY: Noncontributory. REVIEW OF SYSTEMS: Greater than 10 systems were reviewed, negative except as documented above. PHYSICAL EXAMINATION: GENERAL: Elderly female, awake. VITAL SIGNS: Temperature 97.9, pulse 74, respiratory rate 20, BP 111/59. EYES: No icterus. Pupils equal and reactive. HENT: No oral thrush seen. Moist oral mucosa. NECK: Supple, no JVD or thyromegaly. LUNGS: Good air entry. No rales, no rhonchi. CARDIOVASCULAR: S1, S2 regular. No murmur heard. ABDOMEN: Full, soft, nontender. Bowel sounds present. CENTRAL NERVOUS SYSTEM: Awake, alert and oriented x 3. No focal deficits. SKIN: No rashes, no itchiness. LYMPHATIC: No peripheral lymphadenopathy. BACK: No deformity, no pressure ulcer. LABORATORY DATA: Procalcitonin 63.13. Sodium 142, potassium 3.8, BUN 16, creatinine 0.1. WBC 36.1, hemoglobin 9.7, platelets of 32. Urine culture growing Gram-negative shanell. Blood culture growing Gram-negative shanell. ASSESSMENT: An 89-year-old female presenting with fever and chills. Current problems include: * Gram-negative sepsis and bacteremia. * Urinary tract infection. * Multiple myeloma ____. * ____. * Thrombocytopenia. * Anemia. PLAN: * Discontinue cefepime. * Start the patient on meropenem. * Follow up cultures. * Monitor electrolytes and correct as needed. * Continue pain management. * Continue antiemetic. * Continue DVT prophylaxis. * The patient will be followed up closely. Thank you for allowing me to participate in the care of this patient. TID: [id number] RECEIPT: [id number]
[2024-10-26] VITALS (7 sets, daily range): BP systolic 111–132; BP diastolic 55–91; PULSE 68–92; RESP 17–22; TEMP 97.8–98.9; O2SAT 94–96
[2024-10-26 03:40] LABS: BASOPHILS # (AUTO) 0.11 K/uL (0.00-0.20); BASOPHILS % (AUTO) 0.5 % (0.0-5.0); EOSINOPHILS # (AUTO) 0.05 K/uL (0.00-0.70); EOSINOPHILS % (AUTO) 0.2 % (0.0-8.0); HEMATOCRIT 29.6 % (36-48); IMMATURE GRANULOCYTE ABSOLUTE 1.37 K/uL (0-1); LYMPHOCYTES # (AUTO) 0.8 K/uL (1.0-4.8); LYMPHOCYTES % (AUTO) 3.6 % (21.0-51.0); MEAN CORPUSCULAR HEMOGLOBIN 31.7 pg (27.0-33.0); MEAN CORPUSCULAR HGB CONC 32.1 g/dL (32.0-36.0); MEAN CORPUSCULAR VOLUME 98.7 fL (79-99); MONOCYTES # (AUTO) 3.7 K/uL (0.1-1.0); MONOCYTES % (AUTO) 16.7 % (3.0-13.0); NEUTROPHILS # (AUTO) 16.1 K/uL (1.8-7.7); NEUTROPHILS % (AUTO) 72.8 % (40.0-77.0); NUCLEATED RED BLOOD CELLS 0.1 % (0.0-0.19); PLATELET COUNT (AUTO) 32 K/uL (130-400); RED CELL DISTRIBUTION WIDTH 17.2 % (11.0-15.5); WHITE BLOOD COUNT (AUTO) 22.1 K/uL (4.8-10.8)
[2024-10-26 04:01] LABS: CREATININE 0.6 mg/dL (0.5-1.0)
[2024-10-26 04:09] LABS: POTASSIUM 2.8 mmol/L (3.5-5.1)
[2024-10-26] MEDS ORDERED: VANCOMYCIN 1G/250ML KIT 250 ML IV SCH (08:00)
[2024-10-26] MEDS ORDERED: BUPR1PAT22 TP (12:48)
[2024-10-26] MEDS ORDERED: LENA10CA PO (12:48)
[2024-10-26] MEDS ORDERED: MECO10005 PO (12:48)
[2024-10-26] MEDS ORDERED: CALC1TAB2 PO (12:48)
--- NOTE | 2024-10-26 14:11 | PN ---
[facility] PROGRESS NOTE Date Patient Seen: Oct 26, 2024 Time of Visit: 14:11 Supervising Physician: Dr. Joshua Marin Primary Care Physician: Dr Davis Outpatient Specialists: Dr Traylor, Dr Winchester Inpatient Consults: [ ] PROBLEM LIST: Severe sepsis, POA, resolved Urinary tract infection, POA, ESBL E coli, on meropenem Hypertension, POA Hyperlipidemia, POA History of multiple myeloma, status post chemotherapy, on remission since 2019 History of CAD, status post cardiac catheterization status post two stents placement PLAN: Start Meropenem for ESBL Ecoli cystitis Admit to medical-surgical floor with telemetry VS per unit protocol Heart healthy diet Aspiration precautions Continue antibiotics Treat fever aggressively Monitor temperature curve PT/OT eval and treat Keep SBP less than 160 P.r.n. hydralazine labetalol Gentle hydration with IV fluids Bilateral SCDs CBC, CMP, magnesium level daily INTERVAL HISTORY: Patient was evaluated at bedside with family present. She continues to endorse mild abdominal pain better than yesterday. Abdominal pelvic CT scan showed no acute findings. Patient is on room air at this time, pending to be seen by Oncology. Urinary culture was positive for ESBL E coli. Patient currently on meropenem. Infectious Disease is on the case, currently pending outpatient antibiotic therapy to be arranged. Patient's white count has decreased to 22.1 today from 30/6 0.1 yesterday. Hemoglobin stable at 9.5. The patient's vitals are within normal limits today. Patient had one of two blood cultures resulted for Gram-negative rods, likely contamination at this point. Potassium is being replaced today on a slow drip as the patient complains of pain during IV infusion. Chest x-ray was unremarkable. Current treatment plan was discussed with the family and they are in agreement. Patient likely to discharge once outpatient antibiotics are arranged. REVIEW OF SYSTEMS: 12 point ROS reviewed with patient. Pertinent positives mentioned above. Otherwise negative. PHYSICAL EXAM: GENERAL: alert, weak, awake oriented x 3 HEENT: EOMI, Sclera non icteric, moist mucosa NECK: Supple, no JVD, trachea midline LUNGS: Clear breath sounds bilaterally. No wheezes HEART: Regular rate and rhythm. Normal S1 and S2, without murmurs ABD: Abdomen soft, nontender. Bowel sounds present EXT: No clubbing cyanosis or edema NEURO: Alert and oriented to person, follows commands Vital Signs (last 8hr) Date Time Temp Pulse Resp B/P (MAP) Pulse Ox O2 Delivery O2 Flow Rate FiO2 10/26/24 12:00 98.2 68 22 116/56 93 10/26/24 08:28 97.9 70 17 129/70 94 10/26/24 08:00 94 Room Air* 0 21 10/26/24 07:31 74 19 N/A Room Air 21 LABS: Hematology Labs: Test 10/26/24 03:15 10/25/24 06:30 Range/Units White Blood Count 22.1 H 4.8-10.8 K/uL Red Blood Count 3.00 L 4.00-5.50 MIL/uL Hemoglobin 9.5 L 12.0-16.0 g/dL Hematocrit 29.6 L 36-48 % Mean Corpuscular Volume 98.7 79-99 fL Mean Corpuscular Hemoglobin 31.7 27.0-33.0 pg Mean Corpuscular Hemoglobin Concent 32.1 32.0-36.0 g/dL Red Cell Distribution Width 17.2 H 11.0-15.5 % Platelet Count 32 L 130-400 K/uL Mean Platelet Volume 7.5-10.5 fL Immature Granulocyte % (Auto) 6.2 H 0-1 % Neutrophils (%) (Auto) 72.8 40.0-77.0 % Lymphocytes (%) (Auto) 3.6 L 21.0-51.0 % Monocytes (%) (Auto) 16.7 H 3.0-13.0 % Eosinophils (%) (Auto) 0.2 0.0-8.0 % Basophils (%) (Auto) 0.5 0.0-5.0 % Neutrophils # (Auto) 16.1 H 1.8-7.7 K/uL Lymphocytes # (Auto) 0.8 L 1.0-4.8 K/uL Monocytes # (Auto) 3.7 H 0.1-1.0 K/uL Eosinophils # (Auto) 0.05 0.00-0.70 K/uL Basophils # (Auto) 0.11 0.00-0.20 K/uL Absolute Immature Granulocyte (auto 1.37 H 0-1 K/uL Nucleated Red Blood Cells 0.1 0.0-0.19 % Segmented Neutrophils % 66 40-70 % Band Neutrophils % 20 H 0-2 % Lymphocytes % (Manual) 5 L 22-44 % Monocytes % (Manual) 9 2-9 % Differential Comment MANUAL DIFFERENTIAL White Cell Morphology Comment Platelet Morphology Comment MARKED DECREASE Red Blood Cell Morphology ANISO 1+ Chemistry Labs: Test 10/26/24 03:15 10/25/24 07:37 10/25/24 06:30 10/24/24 16:25 Range/Units Sodium Level 146 H 136-145 mmol/L Potassium Level 2.8 *L 3.5-5.1 mmol/L Chloride Level 111 101-111 mmol/L Carbon Dioxide Level 25 21-32 mmol/L Blood Urea Nitrogen 10 7-18 mg/dL Creatinine 0.6 0.5-1.0 mg/dL Glomerular Filtration Rate Calc 86 >90 mL/min Random Glucose 136 H 70-105 mg/dL Lactic Acid Level 1.6 0.8-2.5 mmol/L Total Calcium 8.0 L 8.5-10.1 mg/dL Procalcitonin 63.13 H 0.05-0.5 ng/mL Phosphorus Level 3.5 2.5-4.9 mg/dL Magnesium Level 1.40 L 1.80-2.40 mg/dL Total Bilirubin 1.4 H 0.2-1.0 mg/dL Direct Bilirubin 0.4 H 0.0-0.3 mg/dL Aspartate Amino Transf (AST/SGOT) 17 10-37 U/L Alanine Aminotransferase (ALT/SGPT) 20 12-78 U/L Alkaline Phosphatase 99 50-136 U/L Total Creatine Kinase 35 21-232 U/L Total Protein 5.6 L 6.0-8.3 g/dL Albumin 2.8 L 3.5-5.0 g/dL Test 10/24/24 14:42 10/24/24 14:24 Range/Units Troponin I 0.11 H 0.00-0.05 ng/mL B-Type Natriuretic Peptide 1190 H 0-100 pg/mL DIAGNOSTICS / RADIOLOGY RESULTS: [ ] PLAN NEURO: Minimize central acting medications as possible. Maintain fall precautions, adequate lighting during the day PULMONARY: Supplemental 02 as needed. Maintain aspiration precautions at all times CARDIOVASCULAR: Follow hemodynamics. Vital signs per facility protocol GI & NUTRITION: Continue with nutritional support. Continue stool softeners and laxatives as needed. KIDNEYS & ELECTROLYTES: Strict monitoring of intake, output and overall fluid balance. Avoid nephrotoxic medications to the extent possible. Medications to be dosed according to renal function. Monitor electrolytes and replace as needed ENDOCRINE: Maintain blood glucose between 100-180 at all times. Hypoglycemia protocol in place INFECTIOUS DISEASE: Trend temperature, WBC and procalcitonin level Follow cultures, deescalate antibiotics as soon as possible. Panculture if new onset fever ONCOLOGY/HEMATOLOGY/COAGULATION: Monitor for s/s of bleeding Monitor hemoglobin, coagulation studies as needed SKIN: Pressure ulcer prevention per facility protocol Specialty mattress ORTHO/REHAB: Continue PT/OT Prophylaxis: Continue GI and DVT prophylaxis Code Status: Full Resuscitation Disposition: TBD Other: Total patient care time exceeds 35 minutes excluding all procedures. SCOTT HALL Oct 26, 2024 14:11
--- NOTE | 2024-10-26 17:04 | PN ---
89-year-old female with past medical history of multiple myeloma currently on remission, hypertension, hyperlipidemia, CAD s/p stent placement who presented to ED via private vehicle with complaint of generalized body weakness, and low blood pressure at home and found to have severe sepsis, and urinary tract infection. Patient was seen and examined in ED with son present at bedside. According to him patient was brought in by her sister due to concern of generalized body weakness and persistently borderline blood pressure. History of multiple myeloma patient received chemotherapy treatment with Revlimid, dexamethasone and daratumumab. Patient went to complete remission. Patient receiving maintenance therapy treatment with Revlimid 10 mg p.o. daily Patient was found to have hypotension with the patient was feeling tired and fatigued. Patient was brought to the emergency department with the patient was found to have UTI. Patient was started on antibiotic treatment. White blood count actually is improving. Hemoglobin level 9.5. Platelet count 32. PHYSICAL EXAM: GENERAL: alert, weak, awake oriented x 3 HEENT: EOMI, Sclera non icteric, moist mucosa NECK: Supple, no JVD, trachea midline LUNGS: Clear breath sounds bilaterally. No wheezes HEART: Regular rate and rhythm. Normal S1 and S2, without murmurs ABD: Abdomen soft, nontender. Bowel sounds present EXT: No clubbing cyanosis or edema NEURO: Alert and oriented to person, follows commands assessment History of multiple myeloma patient received chemotherapy treatment with Revlimid, dexamethasone and daratumumab. Patient went to complete remission. Patient receiving maintenance therapy treatment with Revlimid 10 mg p.o. daily Severe sepsis, POA Urinary tract infection, POA Hypertension, POA Hyperlipidemia, POA History of multiple myeloma, status post chemotherapy, on remission since 2019 History of CAD, status post cardiac catheterization status post two stents placement Anemia Thrombocytopenia Leukocytosis PLAN: 1. We will hold oral chemotherapy treatment with Revlimid while this patient in hospital. This patient in complete remission with her multiple myeloma. 2. No need for blood product transfusion 3. Continue antibiotic treatment as per primary 4. CBC and chemistry daily 5. Physical therapy for evaluation and treatment Vitals/Labs Vital Signs Date Time Temp Pulse Resp B/P (MAP) Pulse Ox O2 Delivery O2 Flow Rate FiO2 10/26/24 12:00 98.2 68 22 116/56 93 10/26/24 08:00 Room Air* 0 21 Laboratory Tests 10/25/24 17:58 10/26/24 03:15 Medications Current Medications Piperacillin Sod/ Tazobactam Sod 3.375 gm ONCE ONCE IV Last administered on 10/24/24at 17:21; Start 10/24/24 at 16:30; Stop 10/24/24 at 16:31; Status DC Sodium Chloride 1,000 ml @ 0 mls/hr ONCE ONCE IV Last administered on 10/24/24at 17:21; Start 10/24/24 at 16:30; Stop 10/24/24 at 16:31; Status DC Ceftriaxone Sodium 1 gm Q24H IVPB Last administered on 10/24/24at 22:49; Start 10/24/24 at 21:00; Stop 10/25/24 at 07:34; Status DC Albuterol Sulfate 2.5 mg [id number] PRN IH; Start 10/24/24 at 21:00; Stop 11/23/24 at 20:59 Ascorbic Acid 500 mg DAILY PO Last administered on 10/26/24at 08:05; Start 10/25/24 at 09:00; Stop 11/24/24 at 08:59 Polyethylene Glycol 17 gm DAILY PO Last administered on 10/26/24at 08:05; Start 10/25/24 at 09:00; Stop 11/24/24 at 08:59 Famotidine 20 mg Q24H PO Last administered on 10/25/24at 09:08; Start 10/24/24 at 21:00; Stop 11/23/24 at 20:59 Enoxaparin Sodium 40 mg DAILY SQ; Start 10/25/24 at 09:00; Stop 10/25/24 at 07:47; Status DC Acetaminophen 650 mg Q6H PRN PO Last administered on 10/26/24at 09:37; Start 10/24/24 at 21:00; Stop 11/23/24 at 20:59 Acetaminophen 650 mg Q6H PRN RC; Start 10/24/24 at 21:00; Stop 11/23/24 at 20:59 Acetaminophen/ Hydrocodone Bitart 1 tab Q6H PRN PO Last administered on 10/25/24at 15:49; Start 10/24/24 at 21:00; Stop 10/29/24 at 20:59 Ondansetron HCl 4 mg Q6H PRN IVP; Start 10/24/24 at 21:00; Stop 11/23/24 at 20:59 Acetaminophen/ Hydrocodone Bitart 2 tab Q6H PRN PO; Start 10/24/24 at 21:30; Stop 10/29/24 at 21:29 Cefepime HCl 2 gm Q24H IVPB Last administered on 10/25/24at 09:08; Start 10/25/24 at 07:30; Stop 10/25/24 at 14:23; Status DC Metronidazole/ Sodium Chloride 100 ml @ 100 mls/hr Q8H IVPB Last administered on 10/25/24at 09:08; Start 10/25/24 at 08:00; Stop 10/25/24 at 14:34; Status DC Vancomycin HCl 1 each AD IV; Start 10/25/24 at 07:30; Stop 10/25/24 at 14:23; Status DC Doxycycline Hyclate 100 mg BID PO Last administered on 10/25/24at 09:08; Start 10/25/24 at 09:00; Stop 10/25/24 at 17:07; Status DC Vancomycin HCl 250 ml @ 125 mls/hr ONCE ONCE IV Last administered on 10/25/24at 09:08; Start 10/25/24 at 08:00; Stop 10/25/24 at 09:59; Status DC Vancomycin HCl 250 ml @ 125 mls/hr Q24H IV; Start 10/26/24 at 08:00; Stop 10/25/24 at 14:24; Status DC Lactated Ringer's 1,743 ml @ 581 mls/hr ONCE ONCE IV Last administered on 10/25/24at 09:08; Start 10/25/24 at 08:00; Stop 10/25/24 at 10:59; Status DC Potassium Chloride 100 ml @ 100 mls/hr AD PRN IV; Start 10/25/24 at 08:00; Stop 10/25/24 at 07:48; Status DC Potassium Chloride 20 meq AD PRN PO; Start 10/25/24 at 08:00; Stop 11/24/24 at 07:59 Potassium Chloride 20 meq AD PRN PO; Start 10/25/24 at 08:00; Stop 11/24/24 at 07:59 Potassium Chloride 100 ml @ 50 mls/hr AD PRN IV Last administered on 10/26/24at 13:12; Start 10/25/24 at 08:00; Stop 11/24/24 at 07:59 Magnesium Sulfate 50 ml @ 0 mls/hr PROTOCOL PRN IV; Start 10/25/24 at 08:00; Stop 11/24/24 at 07:59 Sodium Chloride 4 ml STK-MED ONCE IH Last administered on 10/25/24at 08:44; Start 10/25/24 at 07:55; Stop 10/25/24 at 07:56; Status DC Sodium Chloride 4 ml STK-MED ONCE IH Last administered on 10/25/24at 10:24; Start 10/25/24 at 09:53; Stop 10/25/24 at 09:53; Status DC Sodium Chloride 4 ml STK-MED ONCE IH Last administered on 10/25/24at 14:12; Start 10/25/24 at 13:49; Stop 10/25/24 at 13:49; Status DC Pharmacy Profile Note 1 each ONCE MISC; Start 10/25/24 at 14:30; Stop 10/25/24 at 14:35; Status DC Meropenem 1 gm Q8H IVPB; Start 10/25/24 at 15:00; Stop 10/25/24 at 14:38; Status DC Meropenem 1 gm Q12H IVPB Last administered on 10/26/24at 16:25; Start 10/25/24 at 15:00; Stop 11/04/24 at 14:59 MEGGAN DAHL MD Oct 26, 2024 17:04
[2024-10-26 17:53] LABS: MAGNESIUM 1.5 mg/dL (1.80-2.40); POTASSIUM 3.1 mmol/L (3.5-5.1)
[2024-10-26] MEDS: MAGNESIUM 2GM PREMIX 50ML 50 ML IV PRN (18:15)
[2024-10-26] MEDS: PoTASSium chloRIDE 20MEQ ER 20 MEQ ERTAB PO PRN (18:26)
--- NOTE | 2024-10-26 18:39 | NUR ---
DC PLAN: [id number] [place], [place] [address] PATIENT ACCEPTED TO [facility] 10/27/24 AT 11 AM. CM LET NURSE KNOW. NEED TO CHECK IF PICC OR MID LINE PLACED. Addendum: 10/26/24 at 1840 by MARY CHINO RN CM Amended: Links added.
--- NOTE | 2024-10-26 22:39 | PN ---
INFECTIOUS DISEASE PROGRESS NOTE Date of Service: Oct 26, 2024 SUBJECTIVE: Patient was seen and examined at bedside in room 428. Patient is awake, alert and oriented to person. Patient's WBC today trended down to 22.1 from 24/12 0.6 yesterday. Patient is afebrile, temperature is 98.2. No reports of nausea or vomiting. The final urine culture results came back positive for ESBL, E coli. Patient continues on Meropenem 1 g IV every 12 hours. Patient has a Port-A-Cath on the right side. Will have case management evaluate for referral to [facility] for outpatient IV antibiotics with Meropenem for 14 days. Will continue to follow patient's care. PHYSICAL EXAM EYES: Anicteric. Pupils equal and reactive. HENT: No oral thrush seen, moist Oral mucosa. NECK: Supple, no JVD or thyromegaly. LUNGS: Good air entry. No rales, no rhonchi. CARDIOVASCULAR: S1, S2 regular. No murmur heard. ABDOMEN: Soft, non tender, bowel sounds present, no organomegaly. CENTRAL NERVOUS SYSTEM: Awake, alert, oriented x 1. LYMPHATICS: No peripheral lymphadenopathy. MUSCULOSKELETAL: No joint swelling, erythema or tenderness. EXTREMITIES: No cyanosis or clubbing. Weakness. BACK: No deformity, no pressure ulcer. GENITOURINARY: Positive for dysuria. Vital Sign (Last 12 Hours) 10/26/24 10/26/24 10/26/24 12:00 16:00 20:00 Temp 98.2 99.0 Pulse 68 79 Resp 22 20 B/P (MAP) 116/56 132/60 Pulse Ox 93 96 96 O2 Delivery Room Air* O2 Flow Rate 0 FiO2 21 Intake & Output (last 24hrs) 10/25/24 10/25/24 10/26/24 15:00 23:00 07:00 Intake Total 500 ml Output Total 700 ml Balance -200 ml LABS: Laboratory: Test 10/26/24 17:27 10/26/24 03:15 10/25/24 08:06 10/25/24 07:37 Range/Units Potassium Level 3.1 L 3.5-5.1 mmol/L Magnesium Level 1.50 L 1.80-2.40 mg/dL White Blood Count 22.1 H 4.8-10.8 K/uL Red Blood Count 3.00 L 4.00-5.50 MIL/uL Hemoglobin 9.5 L 12.0-16.0 g/dL Hematocrit 29.6 L 36-48 % Mean Corpuscular Volume 98.7 79-99 fL Mean Corpuscular Hemoglobin 31.7 27.0-33.0 pg Mean Corpuscular Hemoglobin Concent 32.1 32.0-36.0 g/dL Red Cell Distribution Width 17.2 H 11.0-15.5 % Platelet Count 32 L 130-400 K/uL Mean Platelet Volume 7.5-10.5 fL Immature Granulocyte % (Auto) 6.2 H 0-1 % Neutrophils (%) (Auto) 72.8 40.0-77.0 % Lymphocytes (%) (Auto) 3.6 L 21.0-51.0 % Monocytes (%) (Auto) 16.7 H 3.0-13.0 % Eosinophils (%) (Auto) 0.2 0.0-8.0 % Basophils (%) (Auto) 0.5 0.0-5.0 % Neutrophils # (Auto) 16.1 H 1.8-7.7 K/uL Lymphocytes # (Auto) 0.8 L 1.0-4.8 K/uL Monocytes # (Auto) 3.7 H 0.1-1.0 K/uL Eosinophils # (Auto) 0.05 0.00-0.70 K/uL Basophils # (Auto) 0.11 0.00-0.20 K/uL Absolute Immature Granulocyte (auto 1.37 H 0-1 K/uL Nucleated Red Blood Cells 0.1 0.0-0.19 % Sodium Level 146 H 136-145 mmol/L Chloride Level 111 101-111 mmol/L Carbon Dioxide Level 25 21-32 mmol/L Blood Urea Nitrogen 10 7-18 mg/dL Creatinine 0.6 0.5-1.0 mg/dL Glomerular Filtration Rate Calc 86 >90 mL/min Random Glucose 136 H 70-105 mg/dL Lactic Acid Level 1.6 0.8-2.5 mmol/L Total Calcium 8.0 L 8.5-10.1 mg/dL Blood Gas Specimen Type Arterial Arterial Blood pH 7.465 H 7.350-7.450 Arterial Blood Partial Pressure CO2 31 L 32-45 mmHg Arterial Blood Partial Pressure O2 98.4 83.0-108.0 mmHg Arterial Blood HCO3 21.7 21.0-28.0 mmol/L Arterial Blood Oxygen Saturation 97.0 94.0-98.0 % Arterial Blood Base Excess -1.4 -2.0-3.0 mmol/L Hemoglobin (Blood Gas) 10.3 L 12.0-16.0 g/dL Sodium (Blood Gas) 134 L 136-145 MMOL/L Bedside Potassium (Blood Gas) 3.1 L 3.4-4.5 MMOL/L Bedside Chloride (Blood Gas) 103 98-107 MMOL/L Bedside Glucose (Blood Gas) 185 H 65-95 MG/DL Bedside Ionized Calcium (Blood Gas) 1.09 L 1.15-1.33 MMOL/L Bedside Lactic Acid (Blood Gas) 1.85 H 0.36-0.75 MMOL/L Blood Gas Temperature 37.0 35.5-37.0 CELSIUS Blood Gas Flow-by 2.00 0.00-15.00 L/min Blood Gas Vent Mode NC ROOM AIR FiO2 28.0 % Blood Gas Specimen Comment CARLOS GONZALEZ-BREN Procalcitonin 63.13 H 0.05-0.5 ng/mL Test 10/25/24 06:30 Range/Units Segmented Neutrophils % 66 40-70 % Band Neutrophils % 20 H 0-2 % Lymphocytes % (Manual) 5 L 22-44 % Monocytes % (Manual) 9 2-9 % Differential Comment MANUAL DIFFERENTIAL White Cell Morphology Comment Platelet Morphology Comment MARKED DECREASE Red Blood Cell Morphology ANISO 1+ Phosphorus Level 3.5 2.5-4.9 mg/dL DIAGNOSTICS / RADIOLOGY: PATIENT: MARYANA OTTO ACCT: [id number] LOC: [facility] U: [id number] AGE/SX: 89/F ROOM: [facility] RE10/24/[address]: JOHN INTERIANO MD : 1935 BED: 1 DIS: STATUS: ADM Genny TLOC: SPEC: [id number] GENIA: 10/24/24 STATUS: COMP REQ: [id number] RECD: 10/25/[address] [facility] [address]: NEELAM RAY MD SOURCE: [facility] [place]TR: 10/25/[address]: ISAAK THOMAS MD SPDESC: CLEAN CAT ORDERED: AERO ID & SENS Procedure Result Reggie Date-Time AEROBIC ID & SENSITIVITIES Final 10/26/24-826 MRL EXTENDED SPECTRUM BETA-LACTAMASE ORGANISM IDENTIFIED. CRITICAL RESULT WAS CALLED BY GARRETT SALCEDO ON 10/26/24 AT 0824. CRITICAL VALUES WERE READ BACK AND ACKNOWLEDGED BY KELLEN PEREZ ( [facility] [place] ) COLONY DESCRIPTION: DAY 1: COLONY COUNT: >100,000 CFU/ML GRAM NEGATIVE RODS IDENTIFICATION AND SENSITIVITY TO FOLLOW ESCHERICHIA COLI E COLI M.I.C. RX --------- ---- AMPICILLIN >16 R* AZTREONAM >16 ESBL CEFAZOLIN >16 R* CEFTAZIDIME >16 ESBL CEFTAZIDIME/AVIBACTAM <=8 S CEFTRIAXONE >2 ESBL CIPROFLOXACIN >2 R GENTAMICIN <=2 S LEVOFLOXACIN >4 R NITROFURANTOIN <=32 S MEROPENEM <=1 S PIPERACILLIN/TAZOBACTAM <=8 S TRIMETHOPRIM/SUFLAMETHOXAZOLE >2/38 R ESCHERICHIA COLI: NEGATIVE/URINE COMBO 62 Lab Alert - ESBL (Extended-Spectrum Beta-Lactamase segment producer) ASSESSMENT: Gram-negative bacteremia. Urinary tract infection with E coli. Infection with multidrug resistant organism. Leukocytosis. Nephrolithiasis. Thrombocytopenia. History of multiple myeloma. Debility. PLAN: Continue Meropenem. Continue GI prophylaxis. Continue pain management. Continue nutritional support. We will monitor electrolytes. Case management evaluation for referral to [facility] for outpatient IV antibiotics with Meropenem x 14 days. This case was reviewed and discussed with my supervising physician and the above assessment and plan was formulated and agreed upon. ATTESTATION BY PHYSICIAN I have seen and examined the patient. I reviewed the documentation, medical decision making, and treatment plan as noted by the mid-level provider above. I agree with the findings and plan of care. ERNESTO BRAUN MD, MIRTA L [facility] Oct 26, 2024 22:39
[2024-10-27] VITALS (11 sets, daily range): BP systolic 113–157; BP diastolic 61–98; PULSE 60–83; RESP 16–20; TEMP 97–99; O2SAT 94–97
[2024-10-27 04:43] LABS: HEMATOCRIT 30.7 % (36-48); MEAN CORPUSCULAR HEMOGLOBIN 31.5 pg (27.0-33.0); MEAN CORPUSCULAR HGB CONC 32.6 g/dL (32.0-36.0); MEAN CORPUSCULAR VOLUME 96.8 fL (79-99); PLATELET COUNT (AUTO) 51 K/uL (130-400); RED BLOOD CELL COUNT(AUTO) 3.17 MIL/uL (4.00-5.50); RED CELL DISTRIBUTION WIDTH 17.2 % (11.0-15.5); WHITE BLOOD COUNT (AUTO) 18.8 K/uL (4.8-10.8)
[2024-10-27 04:50] LABS: CREATININE 0.6 mg/dL (0.5-1.0)
[2024-10-27] MEDS: PoTASSium chl 10% ELIXIR 20MEQ 20 MEQ/15 ML UDCUP PO PRN (07:23)
--- NOTE | 2024-10-27 13:58 | PN ---
INFECTIOUS DISEASE PROGRESS NOTE Date of Service: Oct 27, 2024 SUBJECTIVE: Patient was seen and examined at bedside in room 428. Patient is awake, alert and oriented to person. Patient is afebrile, temperature is 99.0 and the WBC continues trending down and is 18.8 today. Potassium level of 3.0 being replaced. The final blood culture results came back positive for ESBL E coli. Patient continues on Meropenem 1 g IV every 12 hours. Per report patient continues with poor oral intake. No reports of nausea or vomiting. Patient has been approved to [facility] for outpatient IV antibiotics with Meropenem x 14 days. PHYSICAL EXAM EYES: Anicteric. Pupils equal and reactive. HENT: No oral thrush seen, moist Oral mucosa. NECK: Supple, no JVD or thyromegaly. LUNGS: Good air entry. No rales, no rhonchi. CARDIOVASCULAR: S1, S2 regular. No murmur heard. ABDOMEN: Soft, non tender, bowel sounds present, no organomegaly. CENTRAL NERVOUS SYSTEM: Awake, alert, oriented x 1. LYMPHATICS: No peripheral lymphadenopathy. MUSCULOSKELETAL: No joint swelling, erythema or tenderness. EXTREMITIES: No cyanosis or clubbing. Weakness. BACK: No deformity, no pressure ulcer. GENITOURINARY: Positive for dysuria. Vital Sign (Last 12 Hours) 10/27/24 10/27/24 10/27/24 10/27/24 04:00 06:59 08:00 08:00 Temp 97.0 99.0 Pulse 83 75 Resp 17 18 16 B/P (MAP) 137/61 143/74 Pulse Ox 99 95 95 O2 Delivery Room Air N/A Room Air Room Air Room Air* O2 Flow Rate 0.0 0 FiO2 10/27/24 12:00 Temp 98.4 Pulse 83 Resp 18 B/P (MAP) 157/98 Pulse Ox 96 O2 Delivery Room Air O2 Flow Rate 0.0 Intake & Output (last 24hrs) 10/26/24 10/26/24 10/27/24 15:00 23:00 07:00 Output Total 1600 ml Balance -1600 ml LABS: Laboratory: Test 10/27/24 11:03 10/27/24 03:55 10/26/24 17:27 10/26/24 03:15 Range/Units Whole Blood Glucose 178 H 70-110 MG/DL White Blood Count 18.8 H 4.8-10.8 K/uL Red Blood Count 3.17 L 4.00-5.50 MIL/uL Hemoglobin 10.0 L 12.0-16.0 g/dL Hematocrit 30.7 L 36-48 % Mean Corpuscular Volume 96.8 79-99 fL Mean Corpuscular Hemoglobin 31.5 27.0-33.0 pg Mean Corpuscular Hemoglobin Concent 32.6 32.0-36.0 g/dL Red Cell Distribution Width 17.2 H 11.0-15.5 % Platelet Count 51 #L 130-400 K/uL Mean Platelet Volume 7.5-10.5 fL Nucleated Red Blood Cells 0.0 0.0-0.19 % Sodium Level 145 136-145 mmol/L Potassium Level 3.0 *L 3.5-5.1 mmol/L Chloride Level 113 H 101-111 mmol/L Carbon Dioxide Level 25 21-32 mmol/L Blood Urea Nitrogen 5 L 7-18 mg/dL Creatinine 0.6 0.5-1.0 mg/dL Glomerular Filtration Rate Calc 86 >90 mL/min Random Glucose 117 H 70-105 mg/dL Total Calcium 7.8 L 8.5-10.1 mg/dL Magnesium Level 1.50 L 1.80-2.40 mg/dL Immature Granulocyte % (Auto) 6.2 H 0-1 % Neutrophils (%) (Auto) 72.8 40.0-77.0 % Lymphocytes (%) (Auto) 3.6 L 21.0-51.0 % Monocytes (%) (Auto) 16.7 H 3.0-13.0 % Eosinophils (%) (Auto) 0.2 0.0-8.0 % Basophils (%) (Auto) 0.5 0.0-5.0 % Neutrophils # (Auto) 16.1 H 1.8-7.7 K/uL Lymphocytes # (Auto) 0.8 L 1.0-4.8 K/uL Monocytes # (Auto) 3.7 H 0.1-1.0 K/uL Eosinophils # (Auto) 0.05 0.00-0.70 K/uL Basophils # (Auto) 0.11 0.00-0.20 K/uL Absolute Immature Granulocyte (auto 1.37 H 0-1 K/uL Lactic Acid Level 1.6 0.8-2.5 mmol/L PATIENT: MARYANA OTTO ACCT: [id number] LOC: 4D U: [id number] AGE/SX: 89/F ROOM: 428 RE10/24/[address]: JOHN INTERIANO MD : 1935 BED: 1 DIS: STATUS: ADM IN TLOC: SPEC: [id number] GENIA: 10/24/24 STATUS: COMP REQ: [id number] RECD: 10/25/[address]: NEELAM RAY MD SOURCE: BLOOD ENTR: 10/25/[address]: ISAAK THOMAS MD SPDC: BLOOD ORDERED: AERO ID & SENS COMMENTS: Critical result called to, and read back performed by: Name/Title: ANIYAH/RAHEEM CARRERA LVN on 10/27/24 at 1014. Call made by KRISTY. Procedure Result Reggie Date-Time AEROBIC ID & SENSITIVITIES Final 10/27/24-1015 MRL EXTENDED SPECTRUM BETA-LACTAMASE ORGANISM IDENTIFIED. CRITICAL RESULT WAS CALLED BY GARRETT SALCEDO ON 10/27/24 AT 0847. CRITICAL VALUES WERE READ BACK AND ACKNOWLEDGED BY NICOLE MAURO ( [facility] [place] ) COLONY DESCRIPTION: DAY 1: GRAM NEGATIVE RODS PEDIATRIC BOTTLE IDENTIFICATION AND SENSITIVITY TO FOLLOW COMMENTS(R): ESBL ESCHERICHIA COLI E COLI M.I.C. RX --------- ---- AMPICILLIN >16 R* AZTREONAM >16 ESBL CEFAZOLIN >16 R* CEFTAZIDIME 16 ESBL CEFTAZIDIME/AVIBACTAM <=8 S CEFTRIAXONE >2 ESBL CIPROFLOXACIN >2 R GENTAMICIN <=2 S LEVOFLOXACIN >4 R AMPICILLIN/SULBACTAM >16/8 R MEROPENEM <=1 S PIPERACILLIN/TAZOBACTAM <=8 S TRIMETHOPRIM/SUFLAMETHOXAZOLE >2/38 R ESCHERICHIA COLI: NEGATIVE/URINE COMBO 62 Lab Alert - ESBL (Extended-Spectrum Beta-Lactamase promotion producer) ASSESSMENT: E coli bacteremia. Urinary tract infection with E coli. Infection with multidrug resistant organism. Leukocytosis. Nephrolithiasis. Thrombocytopenia. History of multiple myeloma. Debility. PLAN: Continue Meropenem. Continue GI prophylaxis. Continue pain management. Continue nutritional support. We will monitor electrolytes. Patient has been approved to [facility] for outpatient IV antibiotics with Meropenem x 14 days. This case was reviewed and discussed with my supervising physician and the above assessment and plan was formulated and agreed upon. ATTESTATION BY PHYSICIAN I have seen and examined the patient. I reviewed the documentation, medical decision making, and treatment plan as noted by the mid-level provider above. I agree with the findings and plan of care. ERNESTO BRAUN MD, MIRTA L [facility] Oct 27, 2024 13:58
--- NOTE | 2024-10-27 15:02 | PN ---
89-year-old female with past medical history of multiple myeloma currently on remission, hypertension, hyperlipidemia, CAD s/p stent placement who presented to ED via private vehicle with complaint of generalized body weakness, and low blood pressure at home and found to have severe sepsis, and urinary tract infection. Patient was seen and examined in ED with son present at bedside. According to him patient was brought in by her sister due to concern of generalized body weakness and persistently borderline blood pressure. History of multiple myeloma patient received chemotherapy treatment with Revlimid, dexamethasone and daratumumab. Patient went to complete remission. Patient receiving maintenance therapy treatment with Revlimid 10 mg p.o. daily Patient was found to have hypotension with the patient was feeling tired and fatigued. Patient was brought to the emergency department with the patient was found to have UTI. Patient was started on antibiotic treatment. White blood count actually is improving. Hemoglobin level 10.0g/dl. Platelet count 51k. PHYSICAL EXAM: GENERAL: alert, weak, awake oriented x 3 HEENT: EOMI, Sclera non icteric, moist mucosa NECK: Supple, no JVD, trachea midline LUNGS: Clear breath sounds bilaterally. No wheezes HEART: Regular rate and rhythm. Normal S1 and S2, without murmurs ABD: Abdomen soft, nontender. Bowel sounds present EXT: No clubbing cyanosis or edema NEURO: Alert and oriented to person, follows commands assessment History of multiple myeloma patient received chemotherapy treatment with Revlimid, dexamethasone and daratumumab. Patient went to complete remission. Patient receiving maintenance therapy treatment with Revlimid 10 mg p.o. daily Severe sepsis, POA Urinary tract infection, POA Hypertension, POA Hyperlipidemia, POA History of multiple myeloma, status post chemotherapy, on remission since 2019 History of CAD, status post cardiac catheterization status post two stents placement Anemia Thrombocytopenia Leukocytosis. White blood count is improving PLAN: 1. We will hold oral chemotherapy treatment with Revlimid while this patient in hospital. This patient in complete remission with her multiple myeloma. 2. No need for blood product transfusion 3. Continue antibiotic treatment as per primary 4. CBC and chemistry daily 5. Physical therapy for evaluation and treatment Vitals/Labs Vital Signs Date Time Temp Pulse Resp B/P (MAP) Pulse Ox O2 Delivery O2 Flow Rate FiO2 10/27/24 12:00 98.4 83 18 157/98 96 Room Air 0.0 10/27/24 08:00 21 Laboratory Tests 10/26/24 17:27 10/27/24 03:55 Medications Current Medications Piperacillin Sod/ Tazobactam Sod 3.375 gm ONCE ONCE IV Last administered on 10/24/24at 17:21; Start 10/24/24 at 16:30; Stop 10/24/24 at 16:31; Status DC Sodium Chloride 1,000 ml @ 0 mls/hr ONCE ONCE IV Last administered on 10/24/24at 17:21; Start 10/24/24 at 16:30; Stop 10/24/24 at 16:31; Status DC Ceftriaxone Sodium 1 gm Q24H IVPB Last administered on 10/24/24at 22:49; Start 10/24/24 at 21:00; Stop 10/25/24 at 07:34; Status DC Albuterol Sulfate 2.5 mg [id number] PRN IH; Start 10/24/24 at 21:00; Stop 11/23/24 at 20:59 Ascorbic Acid 500 mg DAILY PO Last administered on 10/27/24at 09:46; Start 10/25/24 at 09:00; Stop 11/24/24 at 08:59 Polyethylene Glycol 17 gm DAILY PO Last administered on 10/26/24at 08:05; Start 10/25/24 at 09:00; Stop 10/26/24 at 19:36; Status DC Famotidine 20 mg Q24H PO Last administered on 10/26/24at 21:18; Start 10/24/24 at 21:00; Stop 11/23/24 at 20:59 Enoxaparin Sodium 40 mg DAILY SQ; Start 10/25/24 at 09:00; Stop 10/25/24 at 07:47; Status DC Acetaminophen 650 mg Q6H PRN PO Last administered on 10/26/24at 18:27; Start 10/24/24 at 21:00; Stop 11/23/24 at 20:59 Acetaminophen 650 mg Q6H PRN RC; Start 10/24/24 at 21:00; Stop 11/23/24 at 20:59 Acetaminophen/ Hydrocodone Bitart 1 tab Q6H PRN PO Last administered on 10/25/24at 15:49; Start 10/24/24 at 21:00; Stop 10/29/24 at 20:59 Ondansetron HCl 4 mg Q6H PRN IVP; Start 10/24/24 at 21:00; Stop 11/23/24 at 20:59 Acetaminophen/ Hydrocodone Bitart 2 tab Q6H PRN PO; Start 10/24/24 at 21:30; Stop 10/29/24 at 21:29 Cefepime HCl 2 gm Q24H IVPB Last administered on 10/25/24at 09:08; Start 10/25/24 at 07:30; Stop 10/25/24 at 14:23; Status DC Metronidazole/ Sodium Chloride 100 ml @ 100 mls/hr Q8H IVPB Last administered on 10/25/24at 09:08; Start 10/25/24 at 08:00; Stop 10/25/24 at 14:34; Status DC Vancomycin HCl 1 each AD IV; Start 10/25/24 at 07:30; Stop 10/25/24 at 14:23; Status DC Doxycycline Hyclate 100 mg BID PO Last administered on 10/25/24at 09:08; Start 10/25/24 at 09:00; Stop 10/25/24 at 17:07; Status DC Vancomycin HCl 250 ml @ 125 mls/hr ONCE ONCE IV Last administered on 10/25/24at 09:08; Start 10/25/24 at 08:00; Stop 10/25/24 at 09:59; Status DC Vancomycin HCl 250 ml @ 125 mls/hr Q24H IV; Start 10/26/24 at 08:00; Stop 10/25/24 at 14:24; Status DC Lactated Ringer's 1,743 ml @ 581 mls/hr ONCE ONCE IV Last administered on 10/25/24at 09:08; Start 10/25/24 at 08:00; Stop 10/25/24 at 10:59; Status DC Potassium Chloride 100 ml @ 100 mls/hr AD PRN IV; Start 10/25/24 at 08:00; Stop 10/25/24 at 07:48; Status DC Potassium Chloride 20 meq AD PRN PO Last administered on 10/27/24at 09:47; Start 10/25/24 at 08:00; Stop 11/24/24 at 07:59 Potassium Chloride 20 meq AD PRN PO Last administered on 10/27/24at 12:45; Start 10/25/24 at 08:00; Stop 11/24/24 at 07:59 Potassium Chloride 100 ml @ 50 mls/hr AD PRN IV Last administered on 10/27/24at 07:23; Start 10/25/24 at 08:00; Stop 11/24/24 at 07:59 Magnesium Sulfate 50 ml @ 0 mls/hr PROTOCOL PRN IV Last administered on 10/26/24at 18:15; Start 10/25/24 at 08:00; Stop 11/24/24 at 07:59 Sodium Chloride 4 ml STK-MED ONCE IH Last administered on 10/25/24at 08:44; Start 10/25/24 at 07:55; Stop 10/25/24 at 07:56; Status DC Sodium Chloride 4 ml STK-MED ONCE IH Last administered on 10/25/24at 10:24; Start 10/25/24 at 09:53; Stop 10/25/24 at 09:53; Status DC Sodium Chloride 4 ml STK-MED ONCE IH Last administered on 10/25/24at 14:12; Start 10/25/24 at 13:49; Stop 10/25/24 at 13:49; Status DC Pharmacy Profile Note 1 each ONCE MISC; Start 10/25/24 at 14:30; Stop 10/25/24 at 14:35; Status DC Meropenem 1 gm Q8H IVPB; Start 10/25/24 at 15:00; Stop 10/25/24 at 14:38; Status DC Meropenem 1 gm Q12H IVPB Last administered on 10/27/24at 14:58; Start 10/25/24 at 15:00; Stop 11/04/24 at 14:59 MEGGAN DAHL MD Oct 27, 2024 15:02
--- NOTE | 2024-10-27 17:04 | PN ---
[facility] PROGRESS NOTE Date Patient Seen: Oct 27, 2024 Time of Visit: 17:01 Supervising Physician: NATHANIEL Primary Care Physician: Dr Davis Outpatient Specialists: Dr Traylor, Dr Winchester Inpatient Consults: [ ] PROBLEM LIST: Severe sepsis, POA, resolved Urinary tract infection, POA, ESBL E coli, on meropenem Hypertension, POA Hyperlipidemia, POA History of multiple myeloma, status post chemotherapy, on remission since 2019 History of CAD, status post cardiac catheterization status post two stents placement PLAN: Start Meropenem for ESBL Ecoli cystitis -arrange outpatient as per family Heart healthy diet Aspiration precautions Continue antibiotics Treat fever aggressively Monitor temperature curve PT/OT eval and treat Keep SBP less than 160 P.r.n. hydralazine labetalol Gentle hydration with IV fluids Bilateral SCDs CBC, CMP, magnesium level daily INTERVAL HISTORY: Patient was evaluated at bedside with family present. Patient was very weak and deconditioned, aroused with light stimulation. She continues on Merrem. Of note antibiotics are being arranged in [facility] clinic as per family request, family was made aware that patient was appear significantly deconditioned and weak and is at high-risk for falls upon transferring while getting her to this clinic and recommended a [facility]pc facility for her treatment however at this time they would like physical therapy to proceed with the evaluation formally 1st. Very slim appetite endorsed REVIEW OF SYSTEMS: 12 point ROS reviewed with patient. Pertinent positives mentioned above. Otherwise negative. PHYSICAL EXAM: GENERAL: alert, weak, awake oriented x 3,weak ,deconditioned, cachectic HEENT: EOMI, Sclera non icteric, dry mucosa NECK: Supple, no JVD, trachea midline LUNGS: Clear breath sounds bilaterally. No wheezes HEART: Regular rate and rhythm. Normal S1 and S2, without murmurs ABD: Abdomen soft, nontender. Bowel sounds present EXT: No clubbing cyanosis or edema NEURO: Alert and oriented to person, follows commands Vital Signs (last 8hr) Date Time Temp Pulse Resp B/P (MAP) Pulse Ox O2 Delivery O2 Flow Rate FiO2 10/27/24 16:00 98.2 75 18 136/77 96 Room Air 10/27/24 12:00 98.4 83 18 157/98 96 Room Air 0.0 LABS: Hematology Labs: Test 10/27/24 03:55 10/26/24 03:15 Range/Units White Blood Count 18.8 H 4.8-10.8 K/uL Red Blood Count 3.17 L 4.00-5.50 MIL/uL Hemoglobin 10.0 L 12.0-16.0 g/dL Hematocrit 30.7 L 36-48 % Mean Corpuscular Volume 96.8 79-99 fL Mean Corpuscular Hemoglobin 31.5 27.0-33.0 pg Mean Corpuscular Hemoglobin Concent 32.6 32.0-36.0 g/dL Red Cell Distribution Width 17.2 H 11.0-15.5 % Platelet Count 51 #L 130-400 K/uL Mean Platelet Volume 7.5-10.5 fL Nucleated Red Blood Cells 0.0 0.0-0.19 % Immature Granulocyte % (Auto) 6.2 H 0-1 % Neutrophils (%) (Auto) 72.8 40.0-77.0 % Lymphocytes (%) (Auto) 3.6 L 21.0-51.0 % Monocytes (%) (Auto) 16.7 H 3.0-13.0 % Eosinophils (%) (Auto) 0.2 0.0-8.0 % Basophils (%) (Auto) 0.5 0.0-5.0 % Neutrophils # (Auto) 16.1 H 1.8-7.7 K/uL Lymphocytes # (Auto) 0.8 L 1.0-4.8 K/uL Monocytes # (Auto) 3.7 H 0.1-1.0 K/uL Eosinophils # (Auto) 0.05 0.00-0.70 K/uL Basophils # (Auto) 0.11 0.00-0.20 K/uL Absolute Immature Granulocyte (auto 1.37 H 0-1 K/uL Chemistry Labs: Test 10/27/24 16:27 10/27/24 16:15 10/27/24 03:55 10/26/24 03:15 Range/Units Whole Blood Glucose 131 H 70-110 MG/DL Magnesium Level 1.90 1.80-2.40 mg/dL Sodium Level 145 136-145 mmol/L Potassium Level 3.0 *L 3.5-5.1 mmol/L Chloride Level 113 H 101-111 mmol/L Carbon Dioxide Level 25 21-32 mmol/L Blood Urea Nitrogen 5 L 7-18 mg/dL Creatinine 0.6 0.5-1.0 mg/dL Glomerular Filtration Rate Calc 86 >90 mL/min Random Glucose 117 H 70-105 mg/dL Total Calcium 7.8 L 8.5-10.1 mg/dL Lactic Acid Level 1.6 0.8-2.5 mmol/L DIAGNOSTICS / RADIOLOGY RESULTS: [ ] PLAN NEURO: Minimize central acting medications as possible. Maintain fall precautions, adequate lighting during the day PULMONARY: Supplemental 02 as needed. Maintain aspiration precautions at all times CARDIOVASCULAR: Follow hemodynamics. Vital signs per facility protocol GI & NUTRITION: Continue with nutritional support. Continue stool softeners and laxatives as needed. KIDNEYS & ELECTROLYTES: Strict monitoring of intake, output and overall fluid balance. Avoid nephrotoxic medications to the extent possible. Medications to be dosed according to renal function. Monitor electrolytes and replace as needed ENDOCRINE: Maintain blood glucose between 100-180 at all times. Hypoglycemia protocol in place INFECTIOUS DISEASE: Trend temperature, WBC and procalcitonin level Follow cultures, deescalate antibiotics as soon as possible. Panculture if new onset fever ONCOLOGY/HEMATOLOGY/COAGULATION: Monitor for s/s of bleeding Monitor hemoglobin, coagulation studies as needed SKIN: Pressure ulcer prevention per facility protocol Specialty mattress ORTHO/REHAB: Continue PT/OT Prophylaxis: Continue GI and DVT prophylaxis Code Status: Full Resuscitation Disposition: TBD Other: Total patient care time exceeds 35 minutes excluding all procedures. CRISELDA MCGOVERN Oct 27, 2024 17:04
--- NOTE | 2024-10-27 17:07 | NUR ---
DC PLAN PATIENT ACCEPTED TO [facility]. SPOKE TO RYLEY MARAVILLA ABOUT ACCESS SAID WOULD ASK DR. BRAUN IF WANTS TO ACCESS PORT A CATH PRIOR TO DC INSTEAD OF GETTING PICC OR MID LINE. LET JANNA GREER KNOW. Addendum: 10/27/24 at 1710 by MARY CHINO RN CM Amended: Links added.
[2024-10-28 04:12] VITALS: BP 133/67; PULSE 72; RESP 20; TEMP 98.5
[2024-10-28 08:00] VITALS: BP 151/89; PULSE 65; RESP 18; TEMP 98.7; O2SAT 97
[2024-10-28 11:45] LABS: BASOPHILS # (AUTO) 0.04 K/uL (0.00-0.20); BASOPHILS % (AUTO) 0.3 % (0.0-5.0); EOSINOPHILS # (AUTO) 0.03 K/uL (0.00-0.70); EOSINOPHILS % (AUTO) 0.2 % (0.0-8.0); HEMATOCRIT 33.6 % (36-48); IMMATURE GRANULOCYTE ABSOLUTE 0.69 K/uL (0-1); LYMPHOCYTES # (AUTO) 1.1 K/uL (1.0-4.8); LYMPHOCYTES % (AUTO) 9.3 % (21.0-51.0); MEAN CORPUSCULAR HEMOGLOBIN 31.5 pg (27.0-33.0); MEAN CORPUSCULAR HGB CONC 31.8 g/dL (32.0-36.0); MEAN CORPUSCULAR VOLUME 98.8 fL (79-99); MONOCYTES # (AUTO) 4.5 K/uL (0.1-1.0); MONOCYTES % (AUTO) 36.8 % (3.0-13.0); NEUTROPHILS # (AUTO) 5.9 K/uL (1.8-7.7); NEUTROPHILS % (AUTO) 47.8 % (40.0-77.0); PLATELET COUNT (AUTO) 74 K/uL (130-400); RED CELL DISTRIBUTION WIDTH 16.9 % (11.0-15.5); WHITE BLOOD COUNT (AUTO) 12.3 K/uL (4.8-10.8)
[2024-10-28 11:49] LABS: CARBON DIOXIDE 24 mmol/L (21-32); CHLORIDE 107 mmol/L (101-111); CREATININE 0.6 mg/dL (0.5-1.0); GLOMERULAR FILTR. RATE CALC 86 mL/min (>90); GLUCOSE,RANDOM 132 mg/dL (70-105); SODIUM SERUM 138 mmol/L (136-145); UREA NITROGEN, BLOOD 5 mg/dL (7-18)
[2024-10-28] MEDS: PoTASSium chl 10% ELIXIR 20MEQ 20 MEQ/15 ML UDCUP PO SCH (11:53)
[2024-10-28 12:00] VITALS: BP 118/57; PULSE 85; RESP 16; TEMP 98.3
[2024-10-28 16:00] VITALS: BP 157/73; PULSE 75; RESP 18; TEMP 97.8
--- NOTE | 2024-10-28 17:41 | PN ---
[facility] PROGRESS NOTE Date Patient Seen: Oct 28, 2024 Time of Visit: 17:39 Supervising Physician: NATHANIEL ALMEIDA Primary Care Physician: Dr Davis Outpatient Specialists: Dr Traylor, Dr Winchester Inpatient Consults: [ ] PROBLEM LIST: Severe sepsis, POA, resolved Urinary tract infection, POA, ESBL E coli, on meropenem Hypertension, POA Hyperlipidemia, POA History of multiple myeloma, status post chemotherapy, on remission since 2019 History of CAD, status post cardiac catheterization status post two stents placement PLAN: t Meropenem for ESBL Ecoli cystitis -arrange outpatient as per family Heart healthy diet Aspiration precautions Continue antibiotics Treat fever aggressively Monitor temperature curve PT/OT eval and treat Keep SBP less than 160 P.r.n. hydralazine labetalol Gentle hydration with IV fluids Bilateral SCDs CBC, CMP, magnesium level daily INTERVAL HISTORY: Patient was evaluated at bedside with family present. Patient was very weak and deconditioned, She continues on Merrem. Of note antibiotics are being arranged in [facility] as per family request, family was made aware that patient was appear significantly deconditioned and weak and is at high-risk for falls upon transferring while getting her to this clinic and recommended a shelter facility for her treatment however at this time they would like physical therapy to proceed with the evaluation formally 1st. PT is working with patient continues with Leukocytosis , but downtrending . +lyte abnormalities being replaced today with recheck this afternoon Very slim appetite endorsed REVIEW OF SYSTEMS: 12 point ROS reviewed with patient. Pertinent positives mentioned above. Otherwise negative. PHYSICAL EXAM: GENERAL: alert, weak, awake oriented x 3,weak ,deconditioned, cachectic HEENT: EOMI, Sclera non icteric, dry mucosa NECK: Supple, no JVD, trachea midline LUNGS: Clear breath sounds bilaterally. No wheezes HEART: Regular rate and rhythm. Normal S1 and S2, without murmurs ABD: Abdomen soft, nontender. Bowel sounds present EXT: No clubbing cyanosis or edema NEURO: Alert and oriented to person, follows commands Vital Signs (last 8hr) Date Time Temp Pulse Resp B/P (MAP) Pulse Ox O2 Delivery O2 Flow Rate FiO2 10/28/24 16:00 97.9 75 18 157/73 95 Room Air 10/28/24 12:00 98.2 85 16 118/57 96 Room Air LABS: Hematology Labs: Test 10/28/24 10:24 Range/Units White Blood Count 12.3 H 4.8-10.8 K/uL Red Blood Count 3.40 L 4.00-5.50 MIL/uL Hemoglobin 10.7 L 12.0-16.0 g/dL Hematocrit 33.6 L 36-48 % Mean Corpuscular Volume 98.8 79-99 fL Mean Corpuscular Hemoglobin 31.5 27.0-33.0 pg Mean Corpuscular Hemoglobin Concent 31.8 L 32.0-36.0 g/dL Red Cell Distribution Width 16.9 H 11.0-15.5 % Platelet Count 74 #L 130-400 K/uL Mean Platelet Volume 13.3 H 7.5-10.5 fL Immature Granulocyte % (Auto) 5.6 H 0-1 % Neutrophils (%) (Auto) 47.8 40.0-77.0 % Lymphocytes (%) (Auto) 9.3 L 21.0-51.0 % Monocytes (%) (Auto) 36.8 H 3.0-13.0 % Eosinophils (%) (Auto) 0.2 0.0-8.0 % Basophils (%) (Auto) 0.3 0.0-5.0 % Neutrophils # (Auto) 5.9 1.8-7.7 K/uL Lymphocytes # (Auto) 1.1 1.0-4.8 K/uL Monocytes # (Auto) 4.5 H 0.1-1.0 K/uL Eosinophils # (Auto) 0.03 0.00-0.70 K/uL Basophils # (Auto) 0.04 0.00-0.20 K/uL Absolute Immature Granulocyte (auto 0.69 0-1 K/uL Nucleated Red Blood Cells 0.0 0.0-0.19 % Chemistry Labs: Test 10/28/24 16:09 10/28/24 10:34 10/27/24 16:27 10/27/24 16:15 Range/Units Potassium Level 3.7 3.5-5.1 mmol/L Sodium Level 138 136-145 mmol/L Chloride Level 107 101-111 mmol/L Carbon Dioxide Level 24 21-32 mmol/L Blood Urea Nitrogen 5 L 7-18 mg/dL Creatinine 0.6 0.5-1.0 mg/dL Glomerular Filtration Rate Calc 86 >90 mL/min Random Glucose 132 H 70-105 mg/dL Total Calcium 7.4 L 8.5-10.1 mg/dL Whole Blood Glucose 131 H 70-110 MG/DL Magnesium Level 1.90 1.80-2.40 mg/dL DIAGNOSTICS / RADIOLOGY RESULTS: [ ] PLAN NEURO: Minimize central acting medications as possible. Maintain fall precautions, adequate lighting during the day PULMONARY: Supplemental 02 as needed. Maintain aspiration precautions at all times CARDIOVASCULAR: Follow hemodynamics. Vital signs per facility protocol GI & NUTRITION: Continue with nutritional support. Continue stool softeners and laxatives as needed. KIDNEYS & ELECTROLYTES: Strict monitoring of intake, output and overall fluid balance. Avoid nephrotoxic medications to the extent possible. Medications to be dosed according to renal function. Monitor electrolytes and replace as needed ENDOCRINE: Maintain blood glucose between 100-180 at all times. Hypoglycemia protocol in place INFECTIOUS DISEASE: Trend temperature, WBC and procalcitonin level Follow cultures, deescalate antibiotics as soon as possible. Panculture if new onset fever ONCOLOGY/HEMATOLOGY/COAGULATION: Monitor for s/s of bleeding Monitor hemoglobin, coagulation studies as needed SKIN: Pressure ulcer prevention per facility protocol Specialty mattress ORTHO/REHAB: Continue PT/OT Prophylaxis: Continue GI and DVT prophylaxis Code Status: Full Resuscitation Disposition: TBD Other: Total patient care time exceeds 35 minutes excluding all procedures. CRISELDA MCGOVERN Oct 28, 2024 17:41
[2024-10-28 19:49] VITALS: BP 133/79; PULSE 70; RESP 20; TEMP 98.2
--- NOTE | 2024-10-28 21:44 | PN ---
INFECTIOUS DISEASE FOLLOWUP NOTE DATE OF SERVICE: 10/28/2024 SUBJECTIVE: Patient seen today. No fever, no chills. Awake, alert, bedbound debility. No nausea or vomiting. Appetite is poor. Tolerating orally. No bleeding tendency. No rashes or itchiness. No dysuria or hematuria. PHYSICAL EXAMINATION: VITAL SIGNS: Temperature today 98.5. EYES: No icterus. Pupils are equal and reactive. HENT: No oral thrush seen. Moist oral mucosa. NECK: Supple, no JVD or thyromegaly. LUNGS: Good air entry. No rales, no rhonchi. CARDIOVASCULAR: S1, S2 regular. No murmur heard. ABDOMEN: Full, soft. Bowel sounds are present. CENTRAL NERVOUS SYSTEM: Awake, alert, bedbound debility. SKIN: No rashes, no itchiness. LYMPHATIC: No peripheral lymphadenopathy. BACK: No deformity, no pressure ulcer. ASSESSMENT: An 89-year-old female with multiple problems that include: * Gram-negative bacteremia. * The patient with multidrug-resistant organism. * Anemia. * Thrombocytopenia. * Multiple myeloma. * Debility. * Underlying immunosuppression. PLAN: * Continue meropenem. * Follow up cultures. * Continue physical therapy. * Continue antiemetic. * Continue DVT prophylaxis. * Monitor electrolytes. * The patient will follow up closely. TID: [id number] RECE[facility]: [id number] [facility]
[2024-10-28] MEDS: pregABALin 25 MG CAP PO SCH (21:45)
[2024-10-28] MEDS: RANOLAZINE 500 MG TAB.SR.12H PO SCH (21:46)
[2024-10-28] MEDS: atorVAStatin 10 MG TABLET PO SCH (21:46)
[2024-10-28] MEDS: APIXaban 2.5 MG TABLET PO SCH (21:47)
[2024-10-28 23:02] VITALS: BP 132/81; PULSE 84; RESP 18; TEMP 98.1
[2024-10-29] VITALS (7 sets, daily range): BP systolic 122–152; BP diastolic 70–97; PULSE 79–90; RESP 16–19; TEMP 97.9–98.3; O2SAT 94–97
[2024-10-29 05:42] LABS: BASOPHILS # (AUTO) 0.04 K/uL (0.00-0.20); BASOPHILS % (AUTO) 0.3 % (0.0-5.0); EOSINOPHILS # (AUTO) 0.06 K/uL (0.00-0.70); EOSINOPHILS % (AUTO) 0.5 % (0.0-8.0); HEMATOCRIT 30.9 % (36-48); IMMATURE GRANULOCYTE ABSOLUTE 0.65 K/uL (0-1); LYMPHOCYTES % (AUTO) 8.7 % (21.0-51.0); MEAN CORPUSCULAR HEMOGLOBIN 31.6 pg (27.0-33.0); MEAN CORPUSCULAR VOLUME 98.7 fL (79-99); MONOCYTES # (AUTO) 5.1 K/uL (0.1-1.0); MONOCYTES % (AUTO) 42.7 % (3.0-13.0); NEUTROPHILS # (AUTO) 5.1 K/uL (1.8-7.7); NEUTROPHILS % (AUTO) 42.4 % (40.0-77.0); PLATELET COUNT (AUTO) 81 K/uL (130-400); RED BLOOD CELL COUNT(AUTO) 3.13 MIL/uL (4.00-5.50); RED CELL DISTRIBUTION WIDTH 16.8 % (11.0-15.5)
[2024-10-29 06:10] LABS: BILIRUBIN,TOTAL 0.8 mg/dL (0.2-1.0); CREATININE 0.6 mg/dL (0.5-1.0); MAGNESIUM 1.5 mg/dL (1.80-2.40); POTASSIUM 3.4 mmol/L (3.5-5.1); TOTAL PROTEIN, SERUM 4.4 g/dL (6.0-8.3)
[2024-10-29] MEDS: furoSEMIDE 20 MG TABLET PO SCH (09:10)
[2024-10-29] MEDS: PANTOPrazole 40 MG TAB DR PO SCH (09:11)
[2024-10-29] MEDS: SERTraline HCL 50 MG TABLET PO SCH (09:12)
[2024-10-29] MEDS: FOLic ACID 1 MG TABLET PO SCH (09:12)
[2024-10-29] MEDS ORDERED: MAGNESIUM 2GM PREMIX 50ML 50 ML IV SCH (12:00)
[2024-10-29] MEDS ORDERED: ALTEplase 2MG VIAL 2 MG/VIAL VIAL IVCATH ONE (14:30)
[2024-10-29] MEDS: ALTEplase 2MG VIAL 2 MG/VIAL VIAL IVCATH ONE ×2 (14:57→18:19)
--- NOTE | 2024-10-29 16:42 | PN ---
INFECTIOUS DISEASE PROGRESS NOTE Date of Service: Oct 29, 2024 SUBJECTIVE: Year old female patient is being seen today at bedside. Awake alert and oriented to self. Patient has no fever or chills no nausea or vomiting. Patient is being seen this morning. Patient remains on Merrem tolerating very well. No Episode emesis or nausea. In no respiratory distress. No over night events reported at this visit. PHYSICAL EXAM EYES: Anicteric. Pupils equal and reactive. HENT: No oral thrush seen, moist Oral mucosa. NECK: Supple, no JVD or thyromegaly. LUNGS: Good air entry. No rales, no rhonchi. CARDIOVASCULAR: S1, S2 regular. No murmur heard. ABDOMEN: Soft, non tender, bowel sounds present, no organomegaly. CENTRAL NERVOUS SYSTEM: Awake, alert, oriented x 1. LYMPHATICS: No peripheral lymphadenopathy. MUSCULOSKELETAL: No joint swelling, erythema or tenderness. EXTREMITIES: No cyanosis or clubbing. Weakness. BACK: No deformity, no pressure ulcer. GENITOURINARY: Positive for dysuria. Vital Sign (Last 12 Hours) 10/29/24 10/29/24 08:00 12:00 Temp 98.2 98.1 Pulse 79 84 Resp 18 18 B/P (MAP) 148/70 122/72 Pulse Ox 94 95 O2 Delivery Room Air Room Air Intake & Output (last 24hrs) 10/28/24 10/28/24 10/29/24 15:00 23:00 07:00 Intake Total 500 ml Output Total 900 ml 650 ml Balance -400 ml -650 ml LABS: Laboratory: Test 10/29/24 05:32 Range/Units White Blood Count 12.0 H 4.8-10.8 K/uL Red Blood Count 3.13 L 4.00-5.50 MIL/uL Hemoglobin 9.9 L 12.0-16.0 g/dL Hematocrit 30.9 L 36-48 % Mean Corpuscular Volume 98.7 79-99 fL Mean Corpuscular Hemoglobin 31.6 27.0-33.0 pg Mean Corpuscular Hemoglobin Concent 32.0 32.0-36.0 g/dL Red Cell Distribution Width 16.8 H 11.0-15.5 % Platelet Count 81 L 130-400 K/uL Mean Platelet Volume 13.2 H 7.5-10.5 fL Immature Granulocyte % (Auto) 5.4 H 0-1 % Neutrophils (%) (Auto) 42.4 40.0-77.0 % Lymphocytes (%) (Auto) 8.7 L 21.0-51.0 % Monocytes (%) (Auto) 42.7 H 3.0-13.0 % Eosinophils (%) (Auto) 0.5 0.0-8.0 % Basophils (%) (Auto) 0.3 0.0-5.0 % Neutrophils # (Auto) 5.1 1.8-7.7 K/uL Lymphocytes # (Auto) 1.0 1.0-4.8 K/uL Monocytes # (Auto) 5.1 H 0.1-1.0 K/uL Eosinophils # (Auto) 0.06 0.00-0.70 K/uL Basophils # (Auto) 0.04 0.00-0.20 K/uL Absolute Immature Granulocyte (auto 0.65 0-1 K/uL Nucleated Red Blood Cells 0.0 0.0-0.19 % Sodium Level 142 136-145 mmol/L Potassium Level 3.4 L 3.5-5.1 mmol/L Chloride Level 111 101-111 mmol/L Carbon Dioxide Level 26 21-32 mmol/L Blood Urea Nitrogen 6 L 7-18 mg/dL Creatinine 0.6 0.5-1.0 mg/dL Glomerular Filtration Rate Calc 86 >90 mL/min Random Glucose 97 70-105 mg/dL Total Calcium 7.6 L 8.5-10.1 mg/dL Magnesium Level 1.50 L 1.80-2.40 mg/dL Total Bilirubin 0.8 0.2-1.0 mg/dL Aspartate Amino Transf (AST/SGOT) 16 10-37 U/L Alanine Aminotransferase (ALT/SGPT) 15 12-78 U/L Alkaline Phosphatase 86 50-136 U/L Total Protein 4.4 L 6.0-8.3 g/dL Albumin 2.0 L 3.5-5.0 g/dL PATIENT: MARYANA OTTO ACCT: [id number] LOC: [facility] U: [id number] AGE/SX: 89/F ROOM: [facility] RE10/24/[address]: JOHN INTERIANO MD : 1935 BED: 1 DIS: STATUS: ADM IN TLOC: SPEC: [id number] GENIA: 10/24/24 STATUS: COMP REQ: [id number] RECD: 10/25/[address] [facility] [address]: NEELAM RAY MD SOURCE: BLOOD ENTR: 10/25/[address]: ISAAK THOMAS MD [facility]: BLOOD ORDERED: AERO ID & SENS COMMENTS: Critical result called to, and read back performed by: Name/Title: ANIYAH/RAHEEM CARRERA LVN on 10/27/24 at 1014. Call made by KRISTY. Procedure Result Reggie Date-Time AEROBIC ID & SENSITIVITIES Final 10/27/24-1015 MRL EXTENDED SPECTRUM BETA-LACTAMASE ORGANISM IDENTIFIED. CRITICAL RESULT WAS CALLED BY GARRETT SALCEDO ON 10/27/24 AT 0847. CRITICAL VALUES WERE READ BACK AND ACKNOWLEDGED BY NICOLE MAURO ( [facility] [place] COLONY DESCRIPTION: DAY 1: GRAM NEGATIVE RODS PEDIATRIC BOTTLE IDENTIFICATION AND SENSITIVITY TO FOLLOW COMMENTS(R): ESBL ESCHERICHIA COLI E COLI M.I.C. RX --------- ---- AMPICILLIN >16 R* AZTREONAM >16 ESBL CEFAZOLIN >16 R* CEFTAZIDIME 16 ESBL CEFTAZIDIME/AVIBACTAM <=8 S CEFTRIAXONE >2 ESBL CIPROFLOXACIN >2 R GENTAMICIN <=2 S LEVOFLOXACIN >4 R AMPICILLIN/SULBACTAM >16/8 R MEROPENEM <=1 S PIPERACILLIN/TAZOBACTAM <=8 S TRIMETHOPRIM/SUFLAMETHOXAZOLE >2/38 R ESCHERICHIA COLI: NEGATIVE/URINE COMBO 62 Lab Alert - ESBL (Extended-Spectrum Beta-Lactamase stage producer) PATIENT: MARYANA OTTO ACCT: [id number] LOC: [facility] U: [id number] AGE/SX: 89/F ROOM: [facility] RE10/24/[address]: JOHN INTERIANO MD : 1935 BED: 1 DIS: STATUS: ADM Genny TLOC: SPEC: [id number] GENIA: 10/24/24 STATUS: COMP REQ: [id number] RECD: 10/25/[address] [facility] [address]: NEELAM RAY MD SOURCE: [facility] [place]: 10/25/[address] [facility] [address]: ISAAK THOMAS MD SPDC: CLEAN CAT ORDERED: AERO ID & SENS Procedure Result Reggie Date-Time AEROBIC ID & SENSITIVITIES Final 10/26/24-826 MRL EXTENDED SPECTRUM BETA-LACTAMASE ORGANISM IDENTIFIED. CRITICAL RESULT WAS CALLED BY GARRETT SALCEDO ON 10/26/24 AT 0824. CRITICAL VALUES WERE READ BACK AND ACKNOWLEDGED BY KELLEN PEREZ ( [facility] ) COLONY DESCRIPTION: DAY 1: COLONY COUNT: >100,000 CFU/ML GRAM NEGATIVE RODS IDENTIFICATION AND SENSITIVITY TO FOLLOW ESCHERICHIA COLI E COLI M.I.C. RX --------- ---- AMPICILLIN >16 R* AZTREONAM >16 ESBL CEFAZOLIN >16 R* CEFTAZIDIME >16 ESBL CEFTAZIDIME/AVIBACTAM <=8 S CEFTRIAXONE >2 ESBL CIPROFLOXACIN >2 R GENTAMICIN <=2 S LEVOFLOXACIN >4 R NITROFURANTOIN <=32 S MEROPENEM <=1 S PIPERACILLIN/TAZOBACTAM <=8 S TRIMETHOPRIM/SUFLAMETHOXAZOLE >2/38 R ESCHERICHIA COLI: NEGATIVE/URINE COMBO 62 Lab Alert - ESBL (Extended-Spectrum Beta-Lactamase stage producer) @ [facility] Test Performed at: [facility] [address], [place], [place] [employer] Supervisor: Jarocho Peters D.O. END OF REPORT ASSESSMENT: ESLB E coli bacteremia. Urinary tract infection with ESBL E coli. Infection with multidrug resistant organism. Leukocytosis. Nephrolithiasis. Thrombocytopenia. History of multiple myeloma. Debility. PLAN: Continue Meropenem. Continue GI prophylaxis. Continue pain management. Continue nutritional support. We will monitor electrolytes. Patient has been approved to [facility] for outpatient IV antibiotics with Meropenem x 14 days. This case was reviewed and discussed with my supervising physician and the above assessment and plan was formulated and agreed upon. MADELIN OLGUIN Oct 29, 2024 16:42
--- NOTE | 2024-10-29 16:48 | PN ---
[facility] PROGRESS NOTE Date Patient Seen: Oct 29, 2024 Time of Visit: 16:44 Supervising Physician: NATHANIEL ALMEIDA Primary Care Physician: Dr Davis Outpatient Specialists: Dr Traylor, Dr Winchester Inpatient Consults: [ ] PROBLEM LIST: Severe sepsis, POA, resolved Urinary tract infection, POA, ESBL E coli, on meropenem Hypertension, POA Hyperlipidemia, POA History of multiple myeloma, status post chemotherapy, on remission since 2019 History of CAD, status post cardiac catheterization status post two stents placement PLAN: Meropenem for ESBL Ecoli cystitis -arrange outpatient as per family START SHCHEDULED POTASSIUM AND MAGNESIUM PO REPLACE PER PROTOCOL RECHECK LEVELS THIS AFTERNOON INITIATE DIETARY SUPPLEMEANTION Heart healthy diet Aspiration precautions Continue antibiotics Treat fever aggressively Monitor temperature curve PT/OT eval and treat Keep SBP less than 160 P.r.n. hydralazine labetalol Gentle hydration with IV fluids Bilateral SCDs CBC, CMP, magnesium level daily INTERVAL HISTORY: Patient was evaluated at bedside with family present. Patient was very weak and deconditioned, She continues on Merrem. Of note antibiotics are being arranged in [facility] as per family request, family was made aware that patient was appear significantly deconditioned and weak and is at high-risk for falls upon transferring while getting her to this clinic and recommended a detention facility for her treatment however at this time they would like physical therapy to proceed with the evaluation formally 1st. PT is working with patient, She has been able to transfer from bed to chair . continues with Leukocytosis , but downtrending . from peak of 36 now to 12 +lyte abnormalities persistent. Very slim appetite endorsed REVIEW OF SYSTEMS: 12 point ROS reviewed with patient. Pertinent positives mentioned above. Otherwise negative. PHYSICAL EXAM: GENERAL: alert, weak, awake oriented x 3,weak ,deconditioned, cachectic HEENT: EOMI, Sclera non icteric, dry mucosa NECK: Supple, no JVD, trachea midline LUNGS: Clear breath sounds bilaterally. No wheezes HEART: Regular rate and rhythm. Normal S1 and S2, without murmurs ABD: Abdomen soft, nontender. Bowel sounds present EXT: No clubbing cyanosis or edema NEURO: Alert and oriented to person, follows commands Vital Signs (last 8hr) Date Time Temp Pulse Resp B/P (MAP) Pulse Ox O2 Delivery O2 Flow Rate FiO2 10/29/24 12:00 98.1 84 18 122/72 95 Room Air LABS: Hematology Labs: Test 10/29/24 05:32 Range/Units White Blood Count 12.0 H 4.8-10.8 K/uL Red Blood Count 3.13 L 4.00-5.50 MIL/uL Hemoglobin 9.9 L 12.0-16.0 g/dL Hematocrit 30.9 L 36-48 % Mean Corpuscular Volume 98.7 79-99 fL Mean Corpuscular Hemoglobin 31.6 27.0-33.0 pg Mean Corpuscular Hemoglobin Concent 32.0 32.0-36.0 g/dL Red Cell Distribution Width 16.8 H 11.0-15.5 % Platelet Count 81 L 130-400 K/uL Mean Platelet Volume 13.2 H 7.5-10.5 fL Immature Granulocyte % (Auto) 5.4 H 0-1 % Neutrophils (%) (Auto) 42.4 40.0-77.0 % Lymphocytes (%) (Auto) 8.7 L 21.0-51.0 % Monocytes (%) (Auto) 42.7 H 3.0-13.0 % Eosinophils (%) (Auto) 0.5 0.0-8.0 % Basophils (%) (Auto) 0.3 0.0-5.0 % Neutrophils # (Auto) 5.1 1.8-7.7 K/uL Lymphocytes # (Auto) 1.0 1.0-4.8 K/uL Monocytes # (Auto) 5.1 H 0.1-1.0 K/uL Eosinophils # (Auto) 0.06 0.00-0.70 K/uL Basophils # (Auto) 0.04 0.00-0.20 K/uL Absolute Immature Granulocyte (auto 0.65 0-1 K/uL Nucleated Red Blood Cells 0.0 0.0-0.19 % Chemistry Labs: Test 10/29/24 05:32 Range/Units Sodium Level 142 136-145 mmol/L Potassium Level 3.4 L 3.5-5.1 mmol/L Chloride Level 111 101-111 mmol/L Carbon Dioxide Level 26 21-32 mmol/L Blood Urea Nitrogen 6 L 7-18 mg/dL Creatinine 0.6 0.5-1.0 mg/dL Glomerular Filtration Rate Calc 86 >90 mL/min Random Glucose 97 70-105 mg/dL Total Calcium 7.6 L 8.5-10.1 mg/dL Magnesium Level 1.50 L 1.80-2.40 mg/dL Total Bilirubin 0.8 0.2-1.0 mg/dL Aspartate Amino Transf (AST/SGOT) 16 10-37 U/L Alanine Aminotransferase (ALT/SGPT) 15 12-78 U/L Alkaline Phosphatase 86 50-136 U/L Total Protein 4.4 L 6.0-8.3 g/dL Albumin 2.0 L 3.5-5.0 g/dL DIAGNOSTICS / RADIOLOGY RESULTS: [ ] PLAN NEURO: Minimize central acting medications as possible. Maintain fall precautions, adequate lighting during the day PULMONARY: Supplemental 02 as needed. Maintain aspiration precautions at all times CARDIOVASCULAR: Follow hemodynamics. Vital signs per facility protocol GI & NUTRITION: Continue with nutritional support. Continue stool softeners and laxatives as needed. KIDNEYS & ELECTROLYTES: Strict monitoring of intake, output and overall fluid balance. Avoid nephrotoxic medications to the extent possible. Medications to be dosed according to renal function. Monitor electrolytes and replace as needed ENDOCRINE: Maintain blood glucose between 100-180 at all times. Hypoglycemia protocol in place INFECTIOUS DISEASE: Trend temperature, WBC and procalcitonin level Follow cultures, deescalate antibiotics as soon as possible. Panculture if new onset fever ONCOLOGY/HEMATOLOGY/COAGULATION: Monitor for s/s of bleeding Monitor hemoglobin, coagulation studies as needed SKIN: Pressure ulcer prevention per facility protocol Specialty mattress ORTHO/REHAB: Continue PT/OT Prophylaxis: Continue GI and DVT prophylaxis Code Status: Full Resuscitation Disposition: TBD Other: Total patient care time exceeds 35 minutes excluding all procedures. CRISELDA MCGOVERN Oct 29, 2024 16:48
--- NOTE | 2024-10-29 17:40 | NUR ---
PORT-A-CATH 1ST ATTEMPT NOT SUCCESSFUL AFTER DRAWING 5ML OF FLUID Q3O MINUTES X4 ATTEMPTS FOR 2 HOURS. NO BLOOD RETURN FROM 1ST ATTEPMT. OBTAINED ANOTHER CATHFLO FOR 2ND ATTEMPT.
--- NOTE | 2024-10-29 18:16 | NUR ---
RECEIVED CALL FROM PHARMACY REGARDING CATHFLO. PER PHARMACIST THERE IS NO PROTOCOL ON THE NUMBER OF TIMES TO ADMINISTER CATH ROMMEL LONG SECOND DOSE IS ADMINISTERED 120MIN FROM 1ST DOSE.
[2024-10-29] MEDS: MEROPENEM 1GM 1 GM VIAL IVPB SCH (18:47)
[2024-10-30 00:23] VITALS: BP 108/61; PULSE 85; RESP 18; TEMP 97.9
[2024-10-30 04:45] VITALS: BP 106/60; PULSE 81; RESP 19; TEMP 98.3
[2024-10-30 05:49] LABS: BASOPHILS # (AUTO) 0.06 K/uL (0.00-0.20); BASOPHILS % (AUTO) 0.4 % (0.0-5.0); EOSINOPHILS # (AUTO) 0.08 K/uL (0.00-0.70); EOSINOPHILS % (AUTO) 0.5 % (0.0-8.0); HEMATOCRIT 30.1 % (36-48); IMMATURE GRANULOCYTE ABSOLUTE 0.72 K/uL (0-1); LYMPHOCYTES # (AUTO) 1.6 K/uL (1.0-4.8); LYMPHOCYTES % (AUTO) 10.2 % (21.0-51.0); MEAN CORPUSCULAR HEMOGLOBIN 31.7 pg (27.0-33.0); MEAN CORPUSCULAR HGB CONC 31.9 g/dL (32.0-36.0); MEAN CORPUSCULAR VOLUME 99.3 fL (79-99); MONOCYTES # (AUTO) 5.3 K/uL (0.1-1.0); MONOCYTES % (AUTO) 33.2 % (3.0-13.0); NEUTROPHILS # (AUTO) 8.2 K/uL (1.8-7.7); NEUTROPHILS % (AUTO) 51.2 % (40.0-77.0); PLATELET COUNT (AUTO) 97 K/uL (130-400); RED BLOOD CELL COUNT(AUTO) 3.03 MIL/uL (4.00-5.50); RED CELL DISTRIBUTION WIDTH 16.7 % (11.0-15.5)
[2024-10-30 06:11] LABS: BILIRUBIN,TOTAL 0.8 mg/dL (0.2-1.0); CREATININE 0.4 mg/dL (0.5-1.0); MAGNESIUM 1.6 mg/dL (1.80-2.40); POTASSIUM 3.7 mmol/L (3.5-5.1); TOTAL PROTEIN, SERUM 4.6 g/dL (6.0-8.3)
[2024-10-30 07:16] VITALS: PULSE 78; RESP 18; O2SAT 95; O2SAT 98
[2024-10-30 08:05] VITALS: BP 130/74; PULSE 82; RESP 17; TEMP 97.9
[2024-10-30] MEDS: MAGNESIUM OXIDE 400 MG TABLET PO SCH (09:22)
[2024-10-30] MEDS ORDERED: MAGN400T7 PO (09:38)
[2024-10-30 09:47] VITALS: O2SAT 99
[2024-10-30 11:59] VITALS: BP 132/76; PULSE 80; RESP 16; TEMP 97.6
--- NOTE | 2024-10-30 16:53 | PN ---
INFECTIOUS DISEASE PROGRESS NOTE Date of Service: Oct 30, 2024 SUBJECTIVE: This is a 89-year-old female patient who was seen and examined at bedside in room 428 today. Patient is awake, alert and oriented to person. Answering questions appropriately. Family present at bedside. Patient has been approved to [facility] for outpatient IV antibiotics with Meropenem and will be discharged today. PHYSICAL EXAM EYES: Anicteric. Pupils equal and reactive. HENT: No oral thrush seen, moist Oral mucosa. NECK: Supple, no JVD or thyromegaly. LUNGS: Good air entry. No rales, no rhonchi. CARDIOVASCULAR: S1, S2 regular. No murmur heard. ABDOMEN: Soft, non tender, bowel sounds present, no organomegaly. CENTRAL NERVOUS SYSTEM: Awake, alert, oriented x 1. LYMPHATICS: No peripheral lymphadenopathy. MUSCULOSKELETAL: No joint swelling, erythema or tenderness. EXTREMITIES: No cyanosis or clubbing. Weakness. BACK: No deformity, no pressure ulcer. GENITOURINARY: Positive for dysuria. Vital Sign (Last 12 Hours) 10/30/24 10/30/24 10/30/24 10/30/24 07:16 08:05 09:47 11:59 Temp 97.9 97.5 Pulse 78 82 80 Resp 18 17 16 B/P (MAP) 130/74 132/76 Pulse Ox 99 99 98 O2 Delivery N/A Room Air Room Air Room Air* Room Air O2 Flow Rate 0 FiO2 21 21 Intake & Output (last 24hrs) 10/29/24 10/29/24 10/30/24 15:00 23:00 07:00 Intake Total 350 ml 100.0 ml Output Total 600 ml Balance 350 ml -500.0 ml LABS: Laboratory: Test 10/30/24 05:25 Range/Units White Blood Count 16.0 #H 4.8-10.8 K/uL Red Blood Count 3.03 L 4.00-5.50 MIL/uL Hemoglobin 9.6 L 12.0-16.0 g/dL Hematocrit 30.1 L 36-48 % Mean Corpuscular Volume 99.3 H 79-99 fL Mean Corpuscular Hemoglobin 31.7 27.0-33.0 pg Mean Corpuscular Hemoglobin Concent 31.9 L 32.0-36.0 g/dL Red Cell Distribution Width 16.7 H 11.0-15.5 % Platelet Count 97 L 130-400 K/uL Mean Platelet Volume 13.8 H 7.5-10.5 fL Immature Granulocyte % (Auto) 4.5 H 0-1 % Neutrophils (%) (Auto) 51.2 40.0-77.0 % Lymphocytes (%) (Auto) 10.2 L 21.0-51.0 % Monocytes (%) (Auto) 33.2 H 3.0-13.0 % Eosinophils (%) (Auto) 0.5 0.0-8.0 % Basophils (%) (Auto) 0.4 0.0-5.0 % Neutrophils # (Auto) 8.2 H 1.8-7.7 K/uL Lymphocytes # (Auto) 1.6 1.0-4.8 K/uL Monocytes # (Auto) 5.3 H 0.1-1.0 K/uL Eosinophils # (Auto) 0.08 0.00-0.70 K/uL Basophils # (Auto) 0.06 0.00-0.20 K/uL Absolute Immature Granulocyte (auto 0.72 0-1 K/uL Nucleated Red Blood Cells 0.0 0.0-0.19 % Sodium Level 138 136-145 mmol/L Potassium Level 3.7 3.5-5.1 mmol/L Chloride Level 110 101-111 mmol/L Carbon Dioxide Level 27 21-32 mmol/L Blood Urea Nitrogen 6 L 7-18 mg/dL Creatinine 0.4 L 0.5-1.0 mg/dL Glomerular Filtration Rate Calc 95 >90 mL/min Random Glucose 100 70-105 mg/dL Total Calcium 8.0 L 8.5-10.1 mg/dL Magnesium Level 1.60 L 1.80-2.40 mg/dL Total Bilirubin 0.8 0.2-1.0 mg/dL Aspartate Amino Transf (AST/SGOT) 14 10-37 U/L Alanine Aminotransferase (ALT/SGPT) 13 12-78 U/L Alkaline Phosphatase 88 50-136 U/L Total Protein 4.6 L 6.0-8.3 g/dL Albumin 2.0 L 3.5-5.0 g/dL ASSESSMENT: ESLB E coli bacteremia. Urinary tract infection with ESBL E coli. Infection with multidrug resistant organism. Leukocytosis. Nephrolithiasis. Thrombocytopenia. History of multiple myeloma. Debility. PLAN: Patient has been approved to [facility] for outpatient IV antibiotics and will be discharged to home today. This case was reviewed and discussed with my supervising physician and the above assessment and plan was formulated and agreed upon. ATTESTATION BY PHYSICIAN I have seen and examined the patient. I reviewed the documentation, medical decision making, and treatment plan as noted by the mid-level provider above. I agree with the findings and plan of care. ERNESTO BRAUN MD, [facility] Oct 30, 2024 16:53
--- NOTE | 2024-10-30 17:17 | DS ---
[facility] DISCHARGE SUMMARY Date Patient Seen: Oct 30, 2024 Time of Visit: 17:15 Supervising Physician: NATHANIEL Primary Care Physician: Dr Davis Outpatient Specialists: Dr Traylor, Dr Winchester Inpatient Consults: [ ] PROBLEM LIST: Severe sepsis, POA, resolved Urinary tract infection, POA, ESBL E coli, on meropenem Hypertension, POA Hyperlipidemia, POA History of multiple myeloma, status post chemotherapy, on remission since 2019 History of CAD, status post cardiac catheterization status post two stents placement PLAN: Meropenem for ESBL Ecoli cystitis -arrange outpatient HOSPITAL COURSE: THIS IS A CASE OF AN 89-YEAR-OLD WOMAN THAT HAS MULTIPLE MEDICAL CONDITIONS STATED ABOVE THAT PRESENTED SECONDARY TO SEVERE SEPSIS. UPON PRESENTATION SHE WAS NOTED TO HAVE LEUKOCYTOSIS OF MORE THAN [address]128, CHEMISTRY SIGNIFICANT FOR LACTIC ACIDOSIS, AND UA REVEALING POSITIVE COMPLICATED CYSTITIS. THE PATIENT WAS TREATED WITH IV ANTIBIOTIC THERAPY, CULTURES DID GROW ESBL INFECTION. SHE REMAINED INPATIENT GIVEN SEVERE LEUKOCYTOSIS WITH A PEAK OF 36, LEUKOCYTOSIS DID DOWNTREND AND ELECTROLYTE DERANGEMENTS WERE IMPROVED. PATIENT RECEIVED PHYSICAL THERAPY WHILE INPATIENT AND FAMILY OPTED FOR OUTPATIENT IV ANTIBIOTIC INFUSIONS. WE DID RECOMMEND A SNF FACILITY HOWEVER PATIENT HAS A GOOD SUPPORT SYSTEM OUTPATIENT AND IS ABLE TO TRANSFER, FAMILY IS AWARE OF HER HIGH FALL RISK AND ACCEPTS THE RISK. OUTPATIENT FOLLOW UP WITH NEPHROLOGY AND INFECTIOUS DISEASE SPECIALIST ALONG WITH PCP. ALL QUESTIONS WERE ANSWERED AT THE TIME OF DISCHARGE. Pt hemodynamically stable and afebrile at time of discharge. New Medications: Magnesium Oxide (Mag-Ox) 400 Mg Tab 400 MG PO BID for 14 Days, #28 TAB Continued Medications: Acyclovir (Acyclovir) 400 Mg Tablet 400 MG PO BID, TAB Apixaban (Eliquis) 2.5 Mg Tablet 2.5 MG PO BID, TAB Buprenorphine (Buprenorphine) 5 Mcg/Hour Patch.tdwk 1 PATCH TP QWEEK MDD [id number] Patch(s) for 28 Days, #4 PATCH 0 Refills Calcium Carbonate/Vitamin D3 (Caltrate 600 + D Tablet) 600 Mg Calcium-20 Mcg (800 Unit) Tablet 1 TAB PO DAILY for 30 Days, #30 TAB 0 Refills Dexamethasone (Dexamethasone) 4 Mg Tablet 10 MG PO QWEEK, TAB Folic Acid (Folvite) 1 Mg Tab 1 MG PO DAILY, TAB Furosemide (Furosemide) 20 Mg Tablet 20 MG PO DAILY, TAB Lenalidomide (Revlimid) 10 Mg Capsule 1 CAP PO DAILY for 21 Days, #21 CAP 0 Refills Mecobalamin (B12 Active) 1,000 Mcg Tab.chew 3 TAB PO DAILY for 30 Days, #30 TAB 0 Refills Pantoprazole Sodium (Pantoprazole Sodium) 40 Mg Tablet.dr 40 MG PO DAILY, TAB Potassium Chloride (Potassium Chloride) 20 Meq Tab.er.prt 20 MEQ PO BID Pravastatin Sodium (Pravastatin Sodium) 10 Mg Tablet 10 MG PO HS, TAB Pregabalin (Pregabalin) 50 Mg Capsule 50 MG PO BID, CAP Ranolazine (Ranexa) 500 Mg Tab.er.12h 500 MG PO BID, TAB Sertraline HCl (Sertraline HCl) 100 Mg Tablet 100 MG PO DAILY, TAB Discontinued Medications: Amlodipine Besylate (Amlodipine Besylate) 2.5 Mg Tablet 2.5 MG PO DAILY, TAB Isosorbide Mononitrate (Isosorbide Mononitrate ER) 60 Mg Tab.er.24h 60 MG PO DAILY, TAB PHYSICAL EXAM: GENERAL: alert, weak, awake oriented x 3,weak ,deconditioned, cachectic HEENT: EOMI, Sclera non icteric, dry mucosa NECK: Supple, no JVD, trachea midline LUNGS: Clear breath sounds bilaterally. No wheezes HEART: Regular rate and rhythm. Normal S1 and S2, without murmurs ABD: Abdomen soft, nontender. Bowel sounds present EXT: No clubbing cyanosis or edema NEURO: Alert and oriented to person, follows commands FOLLOW-UP: Follow-up with PCP in 2-3 days RECOMMENDATIONS: See Discharge Instructions This case was seen and discussed with my supervising physician. More than 30 minutes spent on discharge process, including evaluation of the patient, discussion with nursing staff, medication reconciliation and follow-up appointments CRISELDA MCGOVERN Oct 30, 2024 17:17
[2024-11-04] MEDS ORDERED: dexaMETHasone 4 MG TAB PO SCH (09:00)
== END 2024-10-30 15:00 | disposition home or self-care (01) | DRG 872 ==
LOC: EDH 13:49 → EDHIP 20:56 → OBSVTOIN 20:56 → 4DH 10-25 22:20
PROVIDERS: ADMIT Internal Medicine; ATTEND Internal Medicine
DX: A41.50 Gram-negative sepsis, unspecified (principal); Z16.24 Resistance to multiple antibiotics; D84.9 Immunodeficiency, unspecified; Z16.12 Extended spectrum beta lactamase (ESBL) resistance; E87.20 Acidosis, unspecified; I50.32 Chronic diastolic (congestive) heart failure; I11.0 Hypertensive heart disease with heart failure; D69.6 Thrombocytopenia, unspecified; D64.9 Anemia, unspecified; R65.20 Severe sepsis without septic shock; B96.20 Unspecified Escherichia coli [E. coli] as the cause of diseases classified elsewhere; N20.0 Calculus of kidney; I25.10 Atherosclerotic heart disease of native coronary artery without angina pectoris; G89.29 Other chronic pain; N30.90 Cystitis, unspecified without hematuria; M54.9 Dorsalgia, unspecified; E78.00 Pure hypercholesterolemia, unspecified; Z92.21 Personal history of antineoplastic chemotherapy; Z74.01 Bed confinement status; Z79.01 Long term (current) use of anticoagulants; Z95.5 Presence of coronary angioplasty implant and graft; Z90.710 Acquired absence of both cervix and uterus
CPT/HCPCS: 36415; 36600; 71045; 74176; 80048; 80053; 80076; 81001; 82435; 82550; 82803; 82947; 82948; 83605; 83735; 83880; 84100; 84132; 84145; 84295; 84484; 85018; 85025; 85027; 87040; 87086; 87186; 87426; 87804; 93005; 94640; 94664; 96365; 96375; 99291; G0378; J0692; J0696; J2185; J2543; J2997; J3475; J3480; J3490; J7030; A4600; J1644; J3370

== ENCOUNTER 2025-02-03 10:05 | Emergency (ER) | payer OTHER ==
[~2025-02-03] VITALS: Ht 152.4 cm; Wt 54.4 kg
[~2025-02-03 10:05] MED LIST changes: +ACYC-429 PO; -ACYC400T20 PO; -AMLO2.5T4 PO; +APIX2.5T PO; +BUPR1PAT22 TP; +CALC1TAB2 PO; -DEXA4TAB PO; +DEXA6TAB PO; +MAGN400T7 PO; +MECO10005 PO; +PRAV10TA39 PO; -ROSU10TA72 PO
[2025-02-03 10:13] VITALS: TEMP 99
--- NOTE | 2025-02-03 10:27 | ERN ---
ED Note History of Present Illness Stated Complaint: BACK PAIN Chief Complaint: Back Pain or Injury Time Seen by MD: 10:09 Dictation: PATIENT IS AN 89-YEAR-OLD FEMALE HERE WITH HER DAUGHTER WITH COMPLAINTS OF HAVING ACUTE EXACERBATION OF CHRONIC SPINAL PAIN FROM HER CERVICAL TO LUMBAR FOR THE LAST SEVERAL DAYS. NO FEVER NO CHILLS NO NAUSEA VOMITING. PATIENT WAS SEEN HERE ON 01/25 WITH CAT SCAN SHOWING SHE HAD MULTIPLE COMPRESSIONS FRACTURES FROM CERVICAL TO LUMBAR THAT WERE ALL OLD. SHE HAS HAD NO RECENT TRAUMA. SHE HAS A PRIMARY CARE DOCTOR AND A CHIEF TECHNICIAN X RAY, AND SAW HIM YESTERDAY. HE PRESCRIBED BACLOFEN AND HYDROCODONE HOWEVER DAUGHTER STATES WHEN THEY CALLED THE PHARMACY THE HYDROCODONE HAD NOT BEEN CALLED IN. SHE THEN TOOK HER TO HER PRIMARY CARE DOCTOR, WHO GAVE HER A SHOT OF TORADOL AND TOLD HER TO FOLLOW BACK UP WITH A CHIEF TECHNICIAN X RAY. Allergies: Coded Allergies: No Known Drug Allergies (Verified Allergy, Unknown, 11/27/14) Home Meds Active Scripts Magnesium Oxide (Mag-Ox) 400 Mg Tab, 400 MG PO BID for 14 Days, #28 TAB Prov:CRISELDA MCGOVERN 10/30/24 Reported Medications Dexamethasone (Dexamethasone) 6 Mg Tablet, 40 MG PO QWEEK, TAB 01/26/25 Folic Acid (Folvite) 1 Mg Tab, 1 TAB PO DAILY for 30 Days, #30 TAB 0 Refills 01/26/25 Isosorbide Mononitrate (Isosorbide Mononitrate ER) 60 Mg Tab.er.24h, 1 TAB PO DAILY for 30 Days, #30 TAB 0 Refills 01/26/25 Buprenorphine (Buprenorphine) 5 Mcg/Hour Patch.tdwk, 1 PATCH TP QWEEK MDD [phone] Patch(s) for 28 Days, #4 PATCH 0 Refills 25 Lenalidomide (Revlimid) 10 Mg Capsule, 1 CAP PO DAILY for 21 Days, #21 CAP 0 Refills 25 Mecobalamin (B12 Active) 1,000 Mcg Tab.chew, 3 TAB PO DAILY for 30 Days, #30 TAB 0 Refills 25 Calcium Carbonate/Vitamin D3 (Caltrate 600 + D Tablet) 600 Mg Calcium-20 Mcg (800 Unit) Tablet, 1 TAB PO DAILY for 30 Days, #30 TAB 0 Refills 2/20/25 Potassium Chloride (Potassium Chloride) 20 Meq Tab.er.prt, 20 MEQ PO BID 10/25/24 Acyclovir (Acyclovir) 400 Mg Tablet, 400 MG PO BID, TAB 10/25/24 Pantoprazole Sodium (Pantoprazole Sodium) 40 Mg Tablet.dr, 40 MG PO DAILY, TAB 10/25/24 Apixaban (Eliquis) 2.5 Mg Tablet, 2.5 MG PO BID, TAB 10/25/24 Sertraline HCl (Sertraline HCl) 100 Mg Tablet, 100 MG PO DAILY, TAB 10/25/24 Pravastatin Sodium (Pravastatin Sodium) 10 Mg Tablet, 10 MG PO HS, TAB 10/25/24 Pregabalin (Pregabalin) 50 Mg Capsule, 50 MG PO BID, CAP 10/25/24 Furosemide (Furosemide) 20 Mg Tablet, 20 MG PO DAILY, TAB 10/25/24 Folic Acid (Folvite) 1 Mg Tab, 1 MG PO DAILY, TAB 03/17/22 Ranolazine (RANEXA) 500 Mg Tab.er.12h, 500 MG PO BID, TAB 03/17/22 Discontinued Reported Medications Dexamethasone (Dexamethasone) 4 Mg Tablet, 10 MG PO QWEEK, TAB 10/25/24 Discontinued Scripts Cephalexin (Cephalexin) 500 Mg Tablet, 1 TAB PO BID for 3 Days, #20 TAB 0 Refills Prov:DUKE RUST MD 12/12/24 Past Medical History Past Medical History: CAD, Heart Disease, Other Additional Past Medical Hx: HX OF MULTIPLE MYELOMA (IN REMISSION) Surgical History: Hysterectomy, Tonsillectomy, Cholecystectomy, Other Surgical History Other: CARDIAC STENTS Social History: Negative History: Not Applicable RN Note Reviewed/Agreed w/PFSH: Yes Review of System Dictation CONSTITUTIONAL: NEGATIVE EXCEPT FOR HPI HEAD/FACE: NEGATIVE EXCEPT FOR HPI EENT: NEGATIVE EXCEPT FOR HPI RESPIRATORY: NEGATIVE EXCEPT FOR HPI GASTROINTESTINAL/ABDOMINAL: NEGATIVE EXCEPT FOR HPI GENITOURINARY: NEGATIVE EXCEPT FOR HPI MUSCULOSKELETAL: NEGATIVE EXCEPT FOR HPI CERVICAL AND BACK PAIN INTEGUMENTARY: NEGATIVE EXCEPT FOR HPI NEUROLOGICAL/PSYCH: NEGATIVE EXCEPT FOR HPI HEMATOLOGIC/LYMPHATIC: NEGATIVE EXCEPT FOR HPI ALL SYSTEMS NEGATIVE, EXCEPT NOTED ABOVE. 13 POINT REVIEW OF SYSTEMS ASSESSED AND ALL NEGATIVE EXCEPT FOR ABOVE. Initial Vital Sign VS Vital Signs Date Time Temp Pulse Resp B/P (MAP) Pulse Ox O2 Delivery O2 Flow Rate FiO2 02/03/25 10:13 99.0 Physical Exam Dictation VITAL SIGNS REVIEWED GENERAL APPEARANCE: ALERT, ORIENTED X 3, MODERATE TO SEVERE ACUTE DISTRESS, WELL DEVELOPED, NOURISHED. HEAD AND FACE: NON-TRAUMATIC. EYES: PERRL, PINK CONJUNCTIVAS, EYELID NO TRAUMA, ANTERIOR CHAMBER WITH ARCUS SENILIS. EARS: PINNAS INTACT AND NO SIGNS OF TRAUMA OR ERYTHEMA EAR CANALS CLEAR AND NO DISCHARGE TM NO ERYTHEMA NOSE: NO DISCHARGE, NO BLEEDING. OROPHARYNX: MOUTH NORMAL, TONGUE PINK, PHARYNX CLEAR,NO ERYTHEMA, TONSILS NO EXUDATES, NO ABSCESSES NOTED, MUCOUS MEMBRANE MOIST NECK: SUPPLE, NON-TENDER, NO THYROMEGALY, NO MASSES, NO JVD, NO BRUITS BREAST:DEFERRED CHEST:NO TENDERNESS, NO CREPITUS, NO PARADOXICAL MOVEMENT, NO RETRACTIONS LUNGS:CLEAR, WELL-VENTILATED, SYMMETRIC, NO RALES, NO WHEEZING, NO RHONCHI, NO STRIDOR, GOOD BREATH SOUNDS BILATERALLY HEART: REGULAR RATE, REGULAR RHYTHM, NO MURMUR, NO GALLOPS VASCULAR: NO PERIPHERAL EDEMA, ABDOMEN: SOFT, POSITIVE BOWEL SOUNDS, NONDISTENDED, NO GUARDING, NONTENDER, NO REBOUND, NO MASSES NO HEPATOMEGALY, NO SPLENOMEGALY, NO ASHLEY'S SIGN, NO HERNIAS. RECTAL: DEFERRED GENITAL: DEFERRED NEUROLOGICAL: NORMAL SPEECH, MOTOR FUNCTION INTACT, SENSORY FUNCTION INTACT MUSCULOSKELETAL: NECK NONTENDER, FULL RANGE OF MOTION, PATIENT HAS DIFFUSE CERVICAL/THORACIC/LUMBAR TENDERNESS WITH PALPATION. MOVES ALL EXTREMITIES 4+5 BILATERALLY. REPORTS NO CHANGE IN BOWEL OR BLADDER FUNCTION EXTREMITIES: NONTENDER, FULL RANGE OF MOTION SKIN: COLOR PINK, DRY, NO TURGOR, NO RASH, NO LACERATIONS, NO ABRASIONS, NO CONTUSIONS. LYMPHATIC: DEFERRED Results (Laboratory/Radiology) Labs Reviewed?: Yes ED Course ED Course Orders Procedure Category Date Status Time Dexamethasone 4mg/Ml PHA 02/03/25 Complete 1ml Vial (Dexametha 10:30 Ketorolac PHA 02/03/25 Complete Tromethamine 15mg/Ml 10:30 Morphine 2mg Syg PHA 02/03/25 Complete (Morphine 2mg Syg) 10:30 Ondansetron 4mg Inj PHA 02/03/25 Complete (Zofran 4mg Inj) 10:30 Current Medications Medications (Trade) Dose Ordered Sig/Katerina Route PRN Reason Start Time Stop Time Status Last Admin Dose Admin Dexamethasone Sodium Phosphate (dexaMETHasone 4MG/ML 1ML VIAL) 8 mg ONCE ONCE IV 02/03/25 10:30 02/03/25 10:31 DC 02/03/25 10:37 Ketorolac Tromethamine (toRADol) 15 mg ONCE ONCE IV 02/03/25 10:30 02/03/25 10:31 DC 02/03/25 10:35 Morphine Sulfate (morPHINE 2MG SYG) 2 mg ONCE ONCE IVP 02/03/25 10:30 02/03/25 10:31 DC 02/03/25 10:35 Ondansetron HCl (zoFRAN 4MG INJ) 4 mg ONCE ONCE IVP 02/03/25 10:30 02/03/25 10:31 DC 02/03/25 10:35 Vital Signs Date Time Temp Pulse Resp B/P (MAP) Pulse Ox O2 Delivery O2 Flow Rate FiO2 02/03/25 10:13 99.0 1120/PATIENT'S DAUGHTER HAS A BOTTLE OF HYDROCODONE 5/325 WITH A APPROXIMATE 40 TABLETS IN IT. ADDITIONALLY SHE SAID SHE JUST CHECKED WITH THE PHARMACY AND THE PRESCRIPTION FROM HER CHIEF TECHNICIAN X RAY HIS ALSO AT THE PHARMACY. I WILL GIVE HER ONE NORCO HERE AND DISCHARGE HER HOME TO FOLLOW UP WITH DR. CARDONA NEXT WEEK. Medical Decision Making MDM MEDICAL DECISION-MAKING BASED ON EMPIRIC TREATMENT FOR ACUTE EXACERBATION CHRONIC BACK PAIN. PATIENT HAS MULTIPLE KNOWN COMPRESSION FRACTURES FROM CERVICAL THORACIC AND LUMBAR. SHE HAS HAD NO RECENT TRAUMA PATIENT HAS NOT RECEIVED THE HYDROCODONE SHE HAD AT HOME FROM HER CHIEF TECHNICIAN X RAY. DAUGHTER WAS STRONGLY ENCOURAGED TO GIVE DIRECTED SEE DR. CARDONA WEDNESDAY DX & DISP Disposition: Discharge Departure Impression: Primary Impression: Acute exacerbation of chronic low back pain Additional Impression: Compression fracture Condition: Stable Additional Instructions: FOLLOW-UP WITH PRIMARY CARE PROVIDER IN 1 TO 2 DAYS. TAKE MEDICATIONS DIRECTED HERE IN THE EMERGENCY ROOM. OKAY TO CONTINUE HOME MEDICATIONS UNLESS OTHERWISE DISCUSSED DURING YOUR VISIT IN THE EMERGENCY ROOM TODAY. RETURN TO YOUR NEAREST EMERGENCY ROOM IF SYMPTOMS WORSEN OR IF THERE IS NO IMPROVEMENT. CALL 911 IF YOU NEED IMMEDIATE ASSISTANCE. TAKE TYLENOL OR MOTRIN [id number] NEEDED AND IF NO CONTRAINDICATIONS ARE PRESENT. INCREASE ORAL HYDRATION. A WOUND CULTURE OR URINE CULTURE WAS ORDERED HERE IN THE EMERGENCY ROOM DEPARTMENT PLEASE FOLLOW-UP WITH PRIMARY CARE PROVIDER AND ADVISE THEM TO GET REPEAT PORTS FROM OUR FACILITY. IF YOU HAD ANY HECTOR WRAP/SPLINTS THAT WERE APPLIED HERE, PLEASE DO NOT REMOVE THEM UNTIL YOU SEE YOUR PRIMARY CARE OR SPE WARM COMPRESSES THREE TO 4 TIMES A DAY. GIVE HYDROCODONE FROM DR. CARDONA DIRECTED. FOLLOW UP WITH YOUR PRIMARY CARE DOCTOR OR CHIEF TECHNICIAN X RAY NEXT WEEK. Referrals: ISAAK THOMAS MD (PCP) Time of Disposition: 11:24 I have reviewed the case, and I agree with, Diagnosis and Plan JUMA MARLEY PAINTER SPRAY February 03, 2025 10:27
[2025-02-03] MEDS: morPHINE 2 MG SYG IVP ONE (10:35)
[2025-02-03] MEDS: ondanSETRON 4MG INJ IVP ONE (10:35)
[2025-02-03] MEDS: ketOROlac 15MG/ML VIAL (15MG/ML) IV ONE (10:35)
[2025-02-03] MEDS: dexaMETHasone SOD PHOSPHATE 4 MG/ML 1ML VIAL IV ONE (10:37)
[2025-02-03] MEDS: HYDROcodone/APAP 5/325 1 TAB TABLET PO ONE (11:32)
[2025-02-03 11:39] VITALS: BP 103/54; PULSE 78; RESP 17; O2SAT 96
== END 2025-02-03 12:18 | disposition home or self-care (01) ==
LOC: EDH 10:05
DX: G89.29 Other chronic pain (principal); M54.50 Low back pain, unspecified; M48.53XA Collapsed vertebra, not elsewhere classified, cervicothoracic region, initial encounter for fracture; M48.55XA Collapsed vertebra, not elsewhere classified, thoracolumbar region, initial encounter for fracture; I25.10 Atherosclerotic heart disease of native coronary artery without angina pectoris; Z79.01 Long term (current) use of anticoagulants; Z79.61 Long term (current) use of immunomodulator; Z79.624 Long term (current) use of inhibitors of nucleotide synthesis; Z79.899 Other long term (current) drug therapy; Z90.49 Acquired absence of other specified parts of digestive tract; Z90.710 Acquired absence of both cervix and uterus; Z95.5 Presence of coronary angioplasty implant and graft
CPT/HCPCS: 99284; 96374; 96375; J1100; J1885; J2270; J2405